=== PATIENT | male | born 1935 | race Caucasian/White ===

== ENCOUNTER 2017-11-13 11:17 | Emergency (ER) | payer MEDICARE, MEDICAID ==
[~2017-11-13] VITALS: Ht 182.9 cm; Wt 108.9 kg
[~2017-11-13 11:17] MED LIST: CEFD300C3; CLON0.5T23 PO; DIPH25CA49; DOCU-270; ESCI10TA PO; FEBU80TA PO; FESO8TAB PO; LACT10SO7 PO; LORA10CA PO; MERO500V IV; NEBI10TA2 PO; NIFE60TA83 PO; PRAV20TA PO; SITA1TAB6 PO; TAMS-12 PO; TELM1TAB2 PO; TRIA1CAP2 PO; [UNRECOGNIZED DRUG - CODE] PO; [UNRECOGNIZED DRUG - OTHER]
--- NOTE | 2017-11-13 11:50 | NUR ---
PRESENTS TO ER C/O MID STERNAL CHEST PAIN SINCE YESTERDAY. ALSO C/O HEMATURIA X 2 DAYS. A/OX 4. BREATHING EVEN AND UNLABORED. NO SOB, NAD, VITALS STABLE. SAFETY AND COMFORT MEASURES IN PLACE. AWAITING MD ORDER
--- NOTE | 2017-11-13 12:15 | NUR ---
NEW IV STARTED ON LAC, 20G. BLOOD DRAWN AND SENT TO LAB.
--- NOTE | 2017-11-13 12:31 | NUR ---
URINE OBTAINED AND SENT TO LAB.
[2017-11-13 12:34] LABS: BASOPHILS # (AUTO) 0.1 /CMM (0.0-0.2); EOSINOPHILS % (AUTO) 1.5 % (0.0-6.0); HEMATOCRIT 41 % (39-51); HEMOGLOBIN 13.5 g/dL (13.5-17.5); LYMPHOCYTES # (AUTO) 1.9 /CMM (0.8-4.8); LYMPHOCYTES % (AUTO) 22.7 % (20.0-44.0); MEAN CORPUSCULAR HGB CONC 33 g/dl (31.0-36.0); MEAN CORPUSCULAR VOLUME 86 fL (80-96); MONOCYTES # (AUTO) 0.8 /CMM (0.1-1.30); MONOCYTES % (AUTO) 8.9 % (2.0-12.0); NEUTROPHILS # (AUTO) 5.6 /CMM (1.8-8.9); NEUTROPHILS % (AUTO) 65.9 % (43.0-81.0); PLATELET COUNT (AUTO) 245 /CMM (150-450); RDW COEFFICIENT OF VARIATION 13.6 (11.5-15.0); WHITE BLOOD COUNT (AUTO) 8.5 K/uL (4.3-11.0)
[2017-11-13 12:37] LABS: APPEARANCE,URINE Cloudy (CLEAR); BILIRUBIN,URINE Negative (NEGATIVE); BLOOD, URINE Large Ery/uL (NEGATIVE); COLOR,URINE Amber (YELLOW); KETONES,URINE Negative (NEGATIVE); LEUKOCYTE ESTERASE ,URINE Large (NEGATIVE); NITRITE, URINE Negative (NEGATIVE); PH,URINE 6.5 (5.0-8.0); PROTEIN,URINE 100 mg/dl (NEGATIVE); UGLUCOSE 100 MG/DL mg/dL (NEGATIVE); UROBILINOGEN,URINE 0.2 EU/dL (0.2)
[2017-11-13 12:48] LABS: CALCIUM, SERUM 9.2 mg/dL (8.5-10.1); CARBON DIOXIDE 26 mmol/L (21-32); CHLORIDE 104 mmol/L (98-107); CREATININE 2.5 mg/dL (0.6-1.3); GLUCOSE 171 mg/dL (74-106); POTASSIUM 3.8 mmol/L (3.5-5.1); SODIUM SERUM 139 mmol/L (136-145); UREA NITROGEN, BLOOD 34 mg/dL (7-18)
--- NOTE | 2017-11-13 12:50 | NUR ---
PLATING TANK OPERATOR AT BEDSIDE.
[2017-11-13 12:52] LABS: INR 0.93 (0.85-1.15)
[2017-11-13 12:53] LABS: ALANINE AMINOTRANSFERASE 21 U/L (12-78); ALBUMIN 3.5 g/dL (3.4-5.0); ALKALINE PHOSPHATASE 78 U/L (46-116); ASPARTATE AMINOTRANSFERASE 23 U/L (15-37); BILIRUBIN,TOTAL 0.5 mg/dL (0.2-1.0); TOTAL PROTEIN, SERUM 8.5 g/dL (6.4-8.2)
[2017-11-13 12:56] LABS: TROPONIN I < 0.017 ng/mL (0.00-0.056)
[2017-11-13 12:59] LABS: BACTERIA,URINE Many /HPF (None Seen); RBC,URINE TOO NUMEROUS TO COUN /HPF (0-2); SQUAMOUS EPITHELIAL CELL,UR Few /HPF (None Seen); WBC,URINE TOO NUMEROUS TO COUN /HPF (0-3)
--- NOTE | 2017-11-13 15:00 | NUR ---
IV removed. Catheter intact and site benign. Pressure and 4x4 applied to site. No bleeding noted. Patient discharged to home in stable condition. Written and verbal after care instructions given. Patient verbalizes understanding of instruction.
[2017-11-13 15:02] VITALS: BP 172/89
== END 2017-11-13 15:00 | disposition home or self-care (01) ==
LOC: ER 11:20
DX: R07.89 Other chest pain (principal); N12 Tubulo-interstitial nephritis, not specified as acute or chronic; E11.22 Type 2 diabetes mellitus with diabetic chronic kidney disease; I12.9 Hypertensive chronic kidney disease with stage 1 through stage 4 chronic kidney disease, or unspecified chronic kidney disease; N18.9 Chronic kidney disease, unspecified
CPT/HCPCS: 36415; 71045-TC; 80048-TC; 80076-TC; 81000-TC; 84484-TC; 85025-TC; 85730-TC; 87086-TC; A4606; Z7610

== ENCOUNTER 2019-03-17 15:19 | Inpatient (IN) | payer MEDICARE, MEDICAID ==
[~2019-03-17] VITALS: Ht 182.9 cm; Wt 70.3 kg
[2019-03-17] MEDS ORDERED: IV NS 0.9% 1,000 ML BAG IV ONE (16:00)
[2019-03-17] MEDS ORDERED: ONDANSETRON HCL/PF 4 MG/2 ML VIAL IVP ONE (16:00)
[2019-03-17 16:06] LABS: BASOPHILS % (AUTO) 0.4 % (0.0-2.0); EOSINOPHILS % (AUTO) 0.1 % (0.0-6.0); HEMATOCRIT 35 % (39-51); HEMOGLOBIN 11.5 g/dL (13.5-17.5); LYMPHOCYTES # (AUTO) 1.1 /CMM (0.8-4.8); LYMPHOCYTES % (AUTO) 10.3 % (20.0-44.0); MEAN CORPUSCULAR HGB CONC 33 g/dl (31.0-36.0); MEAN CORPUSCULAR VOLUME 88 fL (80-96); MONOCYTES # (AUTO) 0.9 /CMM (0.1-1.30); MONOCYTES % (AUTO) 8.4 % (2.0-12.0); NEUTROPHILS # (AUTO) 8.5 /CMM (1.8-8.9); NEUTROPHILS % (AUTO) 80.8 % (43.0-81.0); PLATELET COUNT (AUTO) 349 /CMM (150-450); RED BLOOD CELL COUNT(AUTO) 3.94 MIL/uL (4.5-6.0); WHITE BLOOD COUNT (AUTO) 10.5 K/uL (4.3-11.0)
[2019-03-17] MEDS ORDERED: ONDANSETRON HCL/PF 4 MG/2 ML VIAL ONE (16:10)
[2019-03-17 16:20] LABS: ALANINE AMINOTRANSFERASE 15 U/L (12-78); ALBUMIN 3.1 g/dL (3.4-5.0); ALKALINE PHOSPHATASE 92 U/L (46-116); ASPARTATE AMINOTRANSFERASE 9 U/L (15-37); BILIRUBIN,DIRECT 0.1 mg/dL (0.0-0.2); BILIRUBIN,TOTAL 0.3 mg/dL (0.2-1.0); CARBON DIOXIDE 11 mmol/L (21-32); CHLORIDE 103 mmol/L (98-107); GLUCOSE 149 mg/dL (74-106); LIPASE 1057 U/L (73-393); POTASSIUM 6.1 mmol/L (3.5-5.1); SODIUM SERUM 137 mmol/L (136-145)
[2019-03-17 16:22] LABS: CREATININE 14.3 mg/dL (0.6-1.3); UREA NITROGEN, BLOOD 215 mg/dL (7-18)
[2019-03-17] MEDS ORDERED: FUROSEMIDE 40 MG/4 ML VIAL IV ONE (16:30)
[2019-03-17] MEDS ORDERED: SODIUM POLYSTYRENE SULFONATE 15 G/60 ML BOTTLE PO ONE (16:30)
[2019-03-17] MEDS ORDERED: SODIUM POLYSTYRENE SULFONATE 15 G/60 ML BOTTLE ONE (16:36)
[2019-03-17] MEDS ORDERED: FUROSEMIDE 40 MG/4 ML VIAL ONE (16:36)
[2019-03-17 17:16] LABS: APPEARANCE,URINE Turbid (CLEAR); BILIRUBIN,URINE Negative (NEGATIVE); BLOOD, URINE Moderate Ery/uL (NEGATIVE); COLOR,URINE Yellow (YELLOW); KETONES,URINE Negative (NEGATIVE); LEUKOCYTE ESTERASE ,URINE Large (NEGATIVE); NITRITE, URINE Negative (NEGATIVE); PROTEIN,URINE 100 mg/dl (NEGATIVE); UGLUCOSE Negative (NEGATIVE); UROBILINOGEN,URINE 0.2 EU/dL (0.2)
[2019-03-17 17:30] LABS: BACTERIA,URINE Moderate /HPF (None Seen); SQUAMOUS EPITHELIAL CELL,UR Few /HPF (None Seen); WBC,URINE 81-100 /HPF (0-3)
--- NOTE | 2019-03-17 17:44 | NUR ---
pt brought in to emergency room for abdominal discomfort labs done levy insterted taken to ct scan levy output 250ml clody urine.
[2019-03-17] MEDS ORDERED: CEFTRIAXONE 1 G in IV D5W 50 ML IV SCH (18:00)
[2019-03-17] MEDS ORDERED: MAG HYDROX/AL HYDROX/SIMETH 30 ML UDC PO PRN (18:00)
[2019-03-17] MEDS ORDERED: HYDROCODONE/APAP 5/325MG 1 EACH TABLET PO PRN (18:00)
[2019-03-17] MEDS ORDERED: MAGNESIUM HYDROXIDE 30 ML UDC PO PRN (18:00)
[2019-03-17] MEDS ORDERED: TEMAZEPAM 15 MG CAPSULE PO PRN (18:00)
[2019-03-17] MEDS ORDERED: ACETAMINOPHEN 325 MG TABLET PO PRN (18:00)
[2019-03-17] MEDS ORDERED: MORPHINE SULFATE INJ 2 MG/ML DISP.SYRIN IV PRN (18:00)
[2019-03-17] MEDS ORDERED: CEFTRIAXONE 1GM BAG (ER ONLY) 50 ML IV ONE (18:01)
--- NOTE | 2019-03-17 18:23 | NUR ---
TELE BED 308-1 GIVEN
[2019-03-17] MEDS ORDERED: DEXTROSE 50%-WATER 50 ML DISP.SYRIN IV PRN (18:30)
--- NOTE | 2019-03-17 18:58 | NUR ---
report given to Alexander marie pt admitted and taken up
--- NOTE | 2019-03-17 19:00 | NUR ---
MS INSURANCE AND FINANCIAL SERVICES AGENT NOTE RECEIVED PATIENT BY KACI FROM ER AT 1855. PATIENT VITAL SIGNS T: 98.1, BP: 145/79, SPO2 97 ON ROOM AIR, HR 91. PATIENT IN NO ACUTE DISTRESS. NO SOB NOTED. PATIENT BREATHING IS EVEN AND UNLABORED. PATIENT MASON CATHETER IS HANGING TO GRAVITY. PATIENT KEPT COMFORTABLE WITH GRAND DAUGHTER AT THE BEDSIDE. PATIENT IS ALERT AND ORIENTED X4. PATIENT BED IS LOCKED AND IN LOWEST POSITION. CALL LIGHT WITHIN REACH. MD AWARE OF ADMISSION. WILL ENDORSE ADMISSION CARE TO CONTRACT TECHNICIAN FOR CONTINUITY OF CARE. Addendum: 03/17/19 at 1925 by MIKE CHENEY RN ON CARDIAC MONITORING SINUS RHYTHM WITH FIRST DEGREE AV BLOCK. ENDORSED TO CONTRACT TECHNICIAN, TELE MONITORING. PATIENT IN NO ACUTE DISTRESS.
[2019-03-17 20:03] VITALS: BP 155/89
[2019-03-17] MEDS: IV NS 0.9% 1,000 ML IV PRN (20:22)
[2019-03-17] MEDS: METOPROLOL TARTRATE 50 MG TABLET PO SCH (20:23)
[2019-03-17 20:30] VITALS: BP 155/89
[2019-03-17] MEDS: BLOOD SUGAR DIAGNOSTIC 1 EACH STRIP IN SCH (20:38)
--- NOTE | 2019-03-17 20:47 | NUR ---
RECIEVED PATIENT ALERT AND ORIENTATED TO PLACE PERSON TIMES. SPEECH CLEAR ANSWERS QUESTIONS WITH THOUGHT. GRAND DAUGHTER AT THE BEDSIDE. mAIN LANGUAGE PRYDEINIG. PATIENT STATES HIS LEGS ARE WEAK. NOTED MASON CATH URINE CLOUDY YELLOW, INSERTED IN THE ER
[2019-03-18] VITALS (7 sets, daily range): BP systolic 130–152; BP diastolic 71–89
--- NOTE | 2019-03-18 04:59 | NUR ---
ENDING NOTES: ADMITTED AT THE BEGINNING OF THE SHIFT. GRAND DAUGHTER WAS AT HIS SIDE TO ANSWER ADMITTING QUESTION. D/T HE SPEAKS BRITISH HIS MAIN LANGUAGE, BUT WITH SOME UNDERSTANDING OF THE [place] LANGUAGE. HE IS COOPERATIVE AND PLEASENT, FOLLOW SIMPLE DIRECTIONS. SKIN INTACCT. NOTED HIS LOWER LEGS ARE WITH BROWN AREAS AND HIS FEET ARE PURPLE/PINK COOL AND WITH FAINT PEDAL PULES, AREAS MARKED. dvt STOCKING ON ORDERED. iV INFUSED THRU THE NIGHT SITE W/O REDNESS OR EDEMA. HE IS FORGETFUL, BED ALARM ON THRU THE NIGHT. URINE MURKY AND YELLOW, PATIENT IS ON ROCEPEN Q24 HOURS. URINE CULTURE PENDING.
[2019-03-18] MEDS: IV NS 0.9% 1,000 ML IV PRN ×2 (05:22→15:02)
[2019-03-18] MEDS: BLOOD SUGAR DIAGNOSTIC 1 EACH STRIP IN SCH ×4 (05:52→21:46)
[2019-03-18 07:13] LABS: BASOPHILS % (AUTO) 0.3 % (0.0-2.0); EOSINOPHILS % (AUTO) 0.2 % (0.0-6.0); HEMATOCRIT 34 % (39-51); LYMPHOCYTES % (AUTO) 8.6 % (20.0-44.0); MEAN CORPUSCULAR HGB CONC 33 g/dl (31.0-36.0); MEAN CORPUSCULAR VOLUME 88 fL (80-96); MONOCYTES % (AUTO) 8.9 % (2.0-12.0); NEUTROPHILS # (AUTO) 9.4 /CMM (1.8-8.9); PLATELET COUNT (AUTO) 320 /CMM (150-450); RED BLOOD CELL COUNT(AUTO) 3.84 MIL/uL (4.5-6.0); WHITE BLOOD COUNT (AUTO) 11.5 K/uL (4.3-11.0)
[2019-03-18 07:38] LABS: ALANINE AMINOTRANSFERASE 9 U/L (12-78); ALBUMIN 2.7 g/dL (3.4-5.0); ALKALINE PHOSPHATASE 86 U/L (46-116); ASPARTATE AMINOTRANSFERASE 12 U/L (15-37); BILIRUBIN,TOTAL 0.4 mg/dL (0.2-1.0); CALCIUM, SERUM 9.5 mg/dL (8.5-10.1); CARBON DIOXIDE 11 mmol/L (21-32); CHLORIDE 102 mmol/L (98-107); GLUCOSE 117 mg/dL (74-106); MAGNESIUM 2.4 mg/dL (1.8-2.4); POTASSIUM 4.7 mmol/L (3.5-5.1); SODIUM SERUM 139 mmol/L (136-145); TOTAL PROTEIN, SERUM 8.2 g/dL (6.4-8.2)
[2019-03-18 07:40] LABS: CHOLESTEROL 113 mg/dL (<200); CREATINE KINASE, TOTAL 62 U/L (39-308); HDL CHOLESTEROL 32 mg/dL (40-60); LDL 64 mg/dL (0-99); TRIGLYCERIDES 119 mg/dL (30-150)
[2019-03-18 07:59] LABS: PHOSPHORUS 12.6 mg/dL (2.5-4.9); UREA NITROGEN, BLOOD 185 mg/dL (7-18)
--- NOTE | 2019-03-18 08:00 | NUR ---
RN NOTES RECEIVED PATIENT IN THE BED A/O X2/3 FINNISH SPEAKER MALE. PATIENT TELE SR 71, NO ACUTE RESPIRATORY DISTRESS, V/S STABLE. PATIENT WAS COMPLAINING OF BILATERAL LOWER LEGS PAIN 3/10 BUT REFUSED PAIN MEDICATION. ADMINISTERED SCHEDULED MEDICATION . DVT PUMP ON, INFUSING NS AT 100 ML/HR ON RIGHT FA INTACT. PATIENT TURN AND REPOSTION SELF IN THE BED, CALL LIGHT WITHIN TO REACH, SAFETY PRECAUTION MAINTAINED ALL THE TIME.
[2019-03-18] MEDS: TAMSULOSIN 0.4 MG CAP.SR.24H PO SCH (09:13)
[2019-03-18] MEDS: NIFEdipine XL 60 MG TAB PO SCH (09:13)
[2019-03-18] MEDS: ESCITALOPRAM OXALATE (10 MG) 10 MG TABLET PO SCH (09:13)
[2019-03-18] MEDS: METOPROLOL TARTRATE 50 MG TABLET PO SCH ×2 (09:13→21:46)
[2019-03-18] MEDS: ATORVASTATIN 10 MG TABLET PO SCH (09:14)
--- NOTE | 2019-03-18 10:00 | NUR ---
RN NOTES SEEN PATIENT BY HOSPITALIST ANNA COLLADO AND TRAUMA NURSE Dr MORALES. ALSO MYSELF TRANSLATED IN COMORAN AND EXPLAINED PATIENT FOR NECESSITATE OF HEMODIALYSIS, PATIENT STATE "I AM NOT REDY FOR HEMODIALYSIS AT THIS TIME". CONTINUED MONITORING.
--- NOTE | 2019-03-18 12:00 | NUR ---
RN NOTES BS-187 MG/DL PATIENT EAT LUNCH, ADMINISTERED SCHEDULED MEDICATION. CALL LIGHT WITHIN TO REACH, CONTINUED MONITORING.
[2019-03-18] MEDS: SEVELAMER CARBONATE 800 MG TABLET PO SCH ×2 (14:57→17:40)
[2019-03-18] MEDS: INSULIN REGULAR, HUMAN 100 UNIT/ML 3 ML VIAL SQ PRN ×2 (14:59→21:50)
[2019-03-18] MEDS: ONDANSETRON HCL/PF 4 MG/2 ML VIAL IVP PRN (15:08)
--- NOTE | 2019-03-18 15:08 | NUR ---
RN NOTES ADMINISTERED ZOFRAN 4 MG/ML IV PUSH FOR NAUSEA AND VOMITING.
--- NOTE | 2019-03-18 16:00 | NUR ---
RN NOTES MEDICATION WERE ADMINISTERED FOR NAUSEA/VOMITING EFFECTIVE, PATIENT STABLE, NPO AT THIS TIME BECAUSE OF US ABDOMEN.
--- NOTE | 2019-03-18 17:00 | NUR ---
RN NOTES BS-135 MG/DL NO COVERAGE GIVEN, ADMINISTERED SCHEDULED MEDICATION, V/S STABLE, NEEDS ATTENDED AND ANTICIPATED, FAMILY NEXT TO THE BED, CONTINUED MONITORING.
[2019-03-18] MEDS: CEFTRIAXONE 1 G in IV D5W 50 ML IV SCH (17:40)
--- NOTE | 2019-03-18 18:30 | NUR ---
RN NOTES PATIENT STABLE, REFUSED PAIN, DVT PUMP ON, PATIENT TURN AND REPOSTION SELF BY SELF. ENDORSED ONCOMING NURSE FOLLOW PLAN OF CARE.
--- NOTE | 2019-03-18 19:20 | NUR ---
MS/RN OPENING NOTES PT RECEIVED AWAKE, RESTING COMFORTABLY IN BED. A/OX2-3. ON ROOM AIR, BREATHING EVEN AND UNLABORED. DENIES SOB AND PAIN AT THIS TIME. IN NO ACUTE RESPIRATORY DISTRESS. HOB ELEVATED SEMI FOWLERS. IV TO RFA INFILTRATED. WILL INSERT NEW IV. MASON IN PLACE AND DRAINING TO GRAVITY. NO NEEDS EXPRESSED AT THIS TIME. BED IN LOW/LOCKED POSITION WITH CALL LIGHT IN REACH. SIDE RAILS UPX3 AND BED ALARM ON FOR SAFETY. WILL CONTINUE TO MONITOR
--- NOTE | 2019-03-18 20:31 | NUR ---
MS/RN NOTES NEW IV INSERTED TO LEFT HAND #22, GOOD BLOOD RETURN AND FLUSHES WELL. RESUMED IVF
--- NOTE | 2019-03-19 02:00 | NUR ---
MS/RN NOTES PT ROUNDING PERFORMED. PT IS SLEEPING, BREATHING EVEN AND UNLABORED. NO S/S OF ACUTE DISTRESS. WILL CONTINUE TO MONITOR
[2019-03-19] MEDS: IV NS 0.9% 1,000 ML IV PRN (04:29)
[2019-03-19] MEDS: BLOOD SUGAR DIAGNOSTIC 1 EACH STRIP IN SCH ×4 (06:57→21:18)
[2019-03-19 06:58] LABS: BASOPHILS # (AUTO) 0.1 /CMM (0.0-0.2); BASOPHILS % (AUTO) 0.4 % (0.0-2.0); EOSINOPHILS % (AUTO) 0.4 % (0.0-6.0); HEMATOCRIT 31 % (39-51); HEMOGLOBIN 10.3 g/dL (13.5-17.5); LYMPHOCYTES % (AUTO) 8.5 % (20.0-44.0); MEAN CORPUSCULAR HGB CONC 33 g/dl (31.0-36.0); MEAN CORPUSCULAR VOLUME 87 fL (80-96); MONOCYTES # (AUTO) 0.9 /CMM (0.1-1.30); MONOCYTES % (AUTO) 7.6 % (2.0-12.0); NEUTROPHILS # (AUTO) 9.8 /CMM (1.8-8.9); NEUTROPHILS % (AUTO) 83.1 % (43.0-81.0); PLATELET COUNT (AUTO) 293 /CMM (150-450); RED BLOOD CELL COUNT(AUTO) 3.54 MIL/uL (4.5-6.0); WHITE BLOOD COUNT (AUTO) 11.8 K/uL (4.3-11.0)
[2019-03-19 07:00] LABS: CALCIUM, SERUM 8.7 mg/dL (8.5-10.1); CHLORIDE 106 mmol/L (98-107); GLUCOSE 133 mg/dL (74-106); LIPASE 1081 U/L (73-393); POTASSIUM 3.7 mmol/L (3.5-5.1); SODIUM SERUM 141 mmol/L (136-145)
[2019-03-19] MEDS: INSULIN REGULAR, HUMAN 100 UNIT/ML 3 ML VIAL SQ PRN ×2 (07:00→21:19)
--- NOTE | 2019-03-19 07:01 | NUR ---
MS/RN NOTES BGL 135. NO INSULIN ADMINISTERED PT STATES HE HAS POOR APPETITE.
[2019-03-19 07:05] LABS: UREA NITROGEN, BLOOD 171 mg/dL (7-18)
--- NOTE | 2019-03-19 07:16 | NUR ---
MS/RN CLOSING NOTES PT AWAKE. RESTING COMFORTABLY IN BED. A/OX2-3. ON ROOM AIR, BREATHING EVEN AND UNLABORED. DENIES SOB AND PAIN AT THIS TIME. SEMI FOWLERS POSITION. IV TO LEFT HAND PATENT AND INTACT RUNNING IVF ORDERED. MASON IN PLACE AND DRAINING TO GRAVITY. NO SIGNIFICANT CHANGES OVERNIGHT. ALL NEEDS MET AND ANTICIPATED. BED IN LOW/LOCKED POSITION WITH CALL LIGHT IN REACH. SIDE RAILS UPX3 AND BED ALARM ON FOR SAFETY. ENDORSED TO DAY SHIFT RN ROSIE.
[2019-03-19 07:33] LABS: CARBON DIOXIDE 9 mmol/L (21-32)
--- NOTE | 2019-03-19 07:45 | NUR ---
RN NOTES GET CALL FROM LAB FOR CRITICAL CO2 -9.0 LEVEL, NOTIFIED ANNA SIMON. PATIENT SLEEPING AT THIS TIME. CONTINUED MONITORING.
[2019-03-19 08:00] VITALS: BP_SYST 100; BP_SYST 102; BP_DIAS 54; BP_DIAS 62
--- NOTE | 2019-03-19 08:00 | NUR ---
rn notes patient in the bed awake, no acute respiratory distress, v/s stable, was complaining of nausea, also administered scheduled medication. Infusing ns at 100 ml/hr on left hand intact. Seen hospitalist ALFRED CASTILLO patient agrees to hemodialysis at this time. call light within to reach, safety precaution maintained all the time.
[2019-03-19] MEDS ORDERED: IV NS 0.9% 1,000 ML IV PRN (08:31)
[2019-03-19] MEDS: NIFEdipine XL 60 MG TAB PO SCH ×2 (09:00→09:33)
[2019-03-19] MEDS: ESCITALOPRAM OXALATE (10 MG) 10 MG TABLET PO SCH (09:24)
[2019-03-19] MEDS: TAMSULOSIN 0.4 MG CAP.SR.24H PO SCH (09:24)
[2019-03-19] MEDS: ATORVASTATIN 10 MG TABLET PO SCH (09:32)
[2019-03-19] MEDS: SEVELAMER CARBONATE 800 MG TABLET PO SCH ×3 (09:33→18:30)
[2019-03-19] MEDS: METOPROLOL TARTRATE 50 MG TABLET PO SCH ×2 (09:33→21:18)
[2019-03-19] MEDS: ONDANSETRON HCL/PF 4 MG/2 ML VIAL IVP PRN ×2 (09:43→21:19)
--- NOTE | 2019-03-19 09:43 | NUR ---
rn notes administered zofran 4 mg/ml iv push for nausea and vomiting.
--- NOTE | 2019-03-19 12:27 | NUR ---
rn notes bs-154 mg/dl, patient refused lunch, medication were administered for nausea/vomiting effective, patient resting in the bed. call light within to reach, continued monitoring.
[2019-03-19 16:00] VITALS: BP 144/60
[2019-03-19 16:07] LABS: *SPE A/G RATIO 0.7 (0.7-1.7); *SPE ALBUMIN 2.8 g/dL (2.9-4.4); *SPE ALPHA-1-GLOBULIN 0.3 g/dL (0.0-0.4); *SPE ALPHA-2-GLOBULIN 0.9 g/dL (0.4-1.0); *SPE GLOBULIN, TOTAL 4.3 g/dL (2.2-3.9); *SPE M-SPIKE Not Observed g/dL (Not Observed)
--- NOTE | 2019-03-19 17:00 | NUR ---
RN NOTES BS-119 MG/DL , ADMINISTERED SCHEDULED MEDICATION, NO ACUTE DISTRESS, PATIENT GOING TO HAVE A PERMCATH TOMORROW [address] GEE.
[2019-03-19] MEDS: CEFTRIAXONE 1 G in IV D5W 50 ML IV SCH (18:29)
[2019-03-19] MEDS: SODIUM BICARBONATE 650 MG TABLET PO SCH ×2 (18:30→23:35)
--- NOTE | 2019-03-19 18:30 | NUR ---
RN NOTES PATIENT IN THE BED STABLE, INFUSING ROCEPHIN ON LEFT HAND 100 ML/HR INTACT, CALL LIGHT WITHIN TO REACH, SAFETY PRECAUTION MAINTAINED ALL THE TIME. ENDORSED ONCOMING NURSE FOLLOW PLAN OF CARE.
--- NOTE | 2019-03-19 19:30 | NUR ---
MS/RN OPENING NOTES PT RECEIVED AWAKE, LAYING COMFORTABLY IN BED. AAOX2-3. ON ROOM AIR, BREATHING EVEN AND UNLABORED. DENIES SOB AND PAIN AT THIS TIME. IV TO LEFT HAND PATENT AND INTACT. SEMI FOWLERS. MASON IN PLACE AND DRAINING TO GRAVITY. BED IN LOW/LOCKED POSITION WITH CALL LIGHT IN REACH. SIDE RAILS UPX3 AND BED ALARM ON FOR SAFETY. PT VERBALIZED UNDERSTANDING FOR SCHEDULED PERMACATH PLACEMENT FOR DIALYSIS TOMORROW AT 1100. WILL HAVE PT SIGN CONSENT FORMS. NO NEEDS EXPRESSED AT THIS TIME. WILL CONTINUE TO MONITOR
[2019-03-19 20:00] VITALS: BP 144/75
--- NOTE | 2019-03-19 21:20 | NUR ---
MS/RN NOTES CONSENTS REVIEWED WITH PT (PROCEDURE, ANESTHESIA AND BLOOD). PT WANTS SOME TIME TO READ AND REVIEW CONSENTS ON HIS OWN. WILL COME BACK AND ANSWER QUESTIONS PT MAY HAVE AND OBTAIN CONSENT.
--- NOTE | 2019-03-19 23:35 | NUR ---
MS/RN NOTES PT ASLEEP, RESPONSIVE TO NAME. ASKED IF HE HAD ANY QUESTIONS AFTER READING CONSENT FORMS. PT STATES HE DOES NOT WANT TO SIGN CONSENTS AT THIS TIME. UPON FURTHER EXPLANATION OF PROCEDURE WITH RISKS/BENEFITS, ASKED IF HE UNDERSTOOD WHY HE WAS UNDERGOING PERMACATH PLACEMENT. RESPONDS WITH "YES, BUT I DONT WANT TO SIGN IT RIGHT NOW. IN THE MORNING". PT BECOMING AGITATED. CRN MADE AWARE.
[2019-03-20] VITALS: BP 108/60
[2019-03-20] MEDS: SODIUM BICARBONATE 650 MG TABLET PO SCH ×7 (03:00→22:52)
[2019-03-20] MEDS: BLOOD SUGAR DIAGNOSTIC 1 EACH STRIP IN SCH ×4 (06:41→22:51)
[2019-03-20] MEDS: INSULIN REGULAR, HUMAN 100 UNIT/ML 3 ML VIAL SQ PRN ×2 (06:45→17:10)
[2019-03-20 07:02] LABS: CALCIUM, SERUM 9.2 mg/dL (8.5-10.1); CARBON DIOXIDE 11 mmol/L (21-32); CHLORIDE 110 mmol/L (98-107); GLUCOSE 133 mg/dL (74-106); POTASSIUM 3.8 mmol/L (3.5-5.1); SODIUM SERUM 144 mmol/L (136-145)
[2019-03-20 08:00] VITALS: BP 147/76
[2019-03-20] MEDS: SEVELAMER CARBONATE 800 MG TABLET PO SCH ×3 (08:00→17:15)
--- NOTE | 2019-03-20 08:00 | NUR ---
RN NOTES RECEIVED PATIENT IN THE BED A/O X3. PATIENT NPO SCHEDULED PERMCATH PROCEDURE TODAY 1000 AM, HELD AM SCHEDULED MEDICATION. PATIENT HAD NO ACUTE RESPIRATORY DISTRESS. IV ACCESS ON LEFT HAND INTACT, F/C DRAINING LIGHT YELLOW OUTPUT, V/S STABLE, REFUSED PAIN AT THIS TIME, DVT PUMP ON, CALL LIGHT WITHIN TO REACH, CONTINUED MONITORING.
[2019-03-20] MEDS: TAMSULOSIN 0.4 MG CAP.SR.24H PO SCH (08:20)
[2019-03-20] MEDS: ATORVASTATIN 10 MG TABLET PO SCH (08:20)
[2019-03-20] MEDS: NIFEdipine XL 60 MG TAB PO SCH (09:00)
[2019-03-20] MEDS: ESCITALOPRAM OXALATE (10 MG) 10 MG TABLET PO SCH (09:00)
[2019-03-20] MEDS: METOPROLOL TARTRATE 50 MG TABLET PO SCH ×2 (09:00→21:50)
[2019-03-20 09:15] LABS: UREA NITROGEN, BLOOD 173 mg/dL (7-18)
[2019-03-20 09:16] LABS: CREATININE 11.2 mg/dL (0.6-1.3)
[2019-03-20 09:46] VITALS: BP 147/76
[2019-03-20] MEDS ORDERED: LIDOCAINE HCL/PF 1% 30 ML SDV ONE (09:46)
[2019-03-20] MEDS ORDERED: HEPARIN SODIUM, PORCINE 1,000 UNIT/ML VIAL ONE (09:46)
[2019-03-20] MEDS ORDERED: ANESTHESIA TRAY IN PYXIS 1 EA TRAY MC ONE (09:46)
[2019-03-20] MEDS ORDERED: FAMOTIDINE/PF INJ 20 MG/2 ML VIAL IV ONE (10:00)
--- NOTE | 2019-03-20 10:00 | NUR ---
rn notes patient picker and packer at this time for PermCath placement, v/s stable.
[2019-03-20 12:08] VITALS: BP 119/57
--- NOTE | 2019-03-20 12:08 | NUR ---
RN NOTES RECEIVED PATIENT BACK FROM PERMCATH PROCEDURE ON LEFT UPPER CHEST DRESSING INTACT, V/S TAKEN BP-119/57, P-61, R-18, T-97.8, O2-ROOM AIR 97, PATENT AWAKE, REFUSED PAIN, BS-147 MG/DL. CALL LIGHT WITHIN TO REACH. CONTINUED MONITORING.
--- NOTE | 2019-03-20 12:22 | NUR ---
RN NOTES POST UP MD ORDERS OK TO USE CATHETER FOR DIALYSIS TODAY, RESUME PREOP ORDERS.
--- NOTE | 2019-03-20 12:40 | NUR ---
RN NOTES PATIENT REFUSED EAT LUNCH, ALSO REFUSED RENAGEL SCHEDULED MEDICATION. UNABLE TO GIVE INSULIN COVERAGE BECAUSE REFUSED TO EAT, CONTINUED MONITORING
[2019-03-20 14:07] LABS: PTH, INTACT 217 pg/mL (15-65)
[2019-03-20 15:54] VITALS: BP 120/56
[2019-03-20] MEDS: CEFTRIAXONE 1 G in IV D5W 50 ML IV SCH (17:07)
--- NOTE | 2019-03-20 18:30 | NUR ---
rn notes bs-159 mg/dl coverage given also administered scheduled medication, patient tolerated dinner 50 %. per dialysis nurse patient will have a dialysis today late time. v/s WNL, needs attended and anticipated, assist patient turn and reposition q 2 hr. call light within to reach. endorsed oncoming nurse follow plan of care.
--- NOTE | 2019-03-20 19:05 | NUR ---
MS RN NOTES RECEIVED PT IN THE BED AWAKE AND ABLE TO MAKE NEEDS KNOWN WITH FAMILY AT BEDSIDE. PT A/O X3 UZBEK SPEAKING. RESPIRATIONS EVEN AND UNLABORED WITH NO S/S OF ACUTE DISTRESS OR SOB NOTED. PT WITH IV ACCESS ON LEFT HAND, PATENT AND INTACT. NO COMPLAINTS OF PAIN AT THIS TIME. PT TO HAVE DIALYSIS. SAFETY MEASURES IN PLACE WITH BED IN LOWEST LOCKED POSITION WITH SIDE RAILS UP X2. CALL LIGHT WITHIN REACH. WILL CONTINUE TO MONITOR.
--- NOTE | 2019-03-20 19:20 | NUR ---
MS RN NOTES PT STARTED ON DIALYSIS.
[2019-03-20] MEDS ORDERED: MANNITOL 12.5 GM/50 ML VIAL IV ONE (19:30)
[2019-03-20 20:19] VITALS: BP 155/78
--- NOTE | 2019-03-20 21:50 | NUR ---
MS RN NOTES DIALYSIS FINISHED WITH 0.2L REMOVED.
[2019-03-21] MEDS: SODIUM BICARBONATE 650 MG TABLET PO SCH ×6 (03:22→22:43)
[2019-03-21 06:29] LABS: BASOPHILS # (AUTO) 0.1 /CMM (0.0-0.2); BASOPHILS % (AUTO) 0.4 % (0.0-2.0); EOSINOPHILS % (AUTO) 0.6 % (0.0-6.0); HEMATOCRIT 32 % (39-51); HEMOGLOBIN 10.8 g/dL (13.5-17.5); LYMPHOCYTES # (AUTO) 1.3 /CMM (0.8-4.8); MEAN CORPUSCULAR HGB CONC 34 g/dl (31.0-36.0); MEAN CORPUSCULAR VOLUME 86 fL (80-96); MONOCYTES # (AUTO) 1.3 /CMM (0.1-1.30); MONOCYTES % (AUTO) 10.4 % (2.0-12.0); NEUTROPHILS % (AUTO) 78.6 % (43.0-81.0); PLATELET COUNT (AUTO) 297 /CMM (150-450); RED BLOOD CELL COUNT(AUTO) 3.71 MIL/uL (4.5-6.0); WHITE BLOOD COUNT (AUTO) 12.8 K/uL (4.3-11.0)
[2019-03-21 06:58] LABS: ALANINE AMINOTRANSFERASE 9 U/L (12-78); ALBUMIN 2.6 g/dL (3.4-5.0); ALKALINE PHOSPHATASE 82 U/L (46-116); ASPARTATE AMINOTRANSFERASE 11 U/L (15-37); BILIRUBIN,TOTAL 0.3 mg/dL (0.2-1.0); CARBON DIOXIDE 15 mmol/L (21-32); CHLORIDE 105 mmol/L (98-107); GLUCOSE 136 mg/dL (74-106); PHOSPHORUS 7.9 mg/dL (2.5-4.9); POTASSIUM 4.4 mmol/L (3.5-5.1); SODIUM SERUM 141 mmol/L (136-145); TOTAL PROTEIN, SERUM 8.1 g/dL (6.4-8.2)
[2019-03-21] MEDS: BLOOD SUGAR DIAGNOSTIC 1 EACH STRIP IN SCH ×4 (07:00→22:00)
[2019-03-21 07:17] LABS: CREATININE 8.7 mg/dL (0.6-1.3); UREA NITROGEN, BLOOD 119 mg/dL (7-18)
[2019-03-21 07:27] LABS: CALCIUM, SERUM 8.9 mg/dL (8.5-10.1)
--- NOTE | 2019-03-21 07:37 | NUR ---
MS RN NOTES PT IN THE BED AWAKE AND ABLE TO MAKE NEEDS KNOWN WITH FAMILY AT BEDSIDE. PT A/O X2-3 DUTCH SPEAKING WITH PERIODS OF CONFUSION. RESPIRATIONS EVEN AND UNLABORED WITH NO S/S OF ACUTE DISTRESS OR SOB NOTED THROUGHOUT SHIFT. NO COMPLAINTS OF PAIN AT THIS TIME. PT TO HAVE DIALYSIS. SAFETY MEASURES IN PLACE WITH BED IN LOWEST LOCKED POSITION WITH SIDE RAILS UP X2. CALL LIGHT WITHIN REACH. WILL ENDORSE TO ONCOMING NURSE FOR ROSIE.
[2019-03-21 08:00] VITALS: BP 142/85
[2019-03-21] MEDS: SEVELAMER CARBONATE 800 MG TABLET PO SCH ×3 (08:00→17:52)
--- NOTE | 2019-03-21 08:00 | NUR ---
MS RN RECEIVED ON BED,AWAKE,ALERT,ORIENTED X 3,NOT IN ANY FOM OF DISTRESS, RESPIRATIONS EVEN AND UNLABORED,NO SOB NOTED, LUNGS ARE DIMINISH, DENIES PAIN AT THIS TIME.
--- NOTE | 2019-03-21 09:00 | NUR ---
MS RN HELD MEDS AT THIS TIME, PATIENT WILL HAVE HD TODAY.
--- NOTE | 2019-03-21 11:35 | NUR ---
MS SERA HD DONE W/ 1000ML OUTPUT, NO DISTRESS NOTED.
--- NOTE | 2019-03-21 12:00 | NUR ---
MS RN BS - 192 - 3 UNITS GIVEN,ALL NEEDS ATTENDED.
--- NOTE | 2019-03-21 14:00 | NUR ---
MS RN MASON CATHETER REMOVED,NO DISTRESS NOTED.
[2019-03-21] MEDS: INSULIN REGULAR, HUMAN 100 UNIT/ML 3 ML VIAL SQ PRN ×2 (14:02→22:06)
[2019-03-21] MEDS: TAMSULOSIN 0.4 MG CAP.SR.24H PO SCH (14:08)
[2019-03-21] MEDS: ESCITALOPRAM OXALATE (10 MG) 10 MG TABLET PO SCH (14:08)
[2019-03-21] MEDS: ATORVASTATIN 10 MG TABLET PO SCH (14:08)
[2019-03-21 16:00] VITALS: BP 131/72
[2019-03-21] MEDS: METOPROLOL TARTRATE 50 MG TABLET PO SCH ×2 (17:51→21:00)
[2019-03-21] MEDS: NIFEdipine XL 60 MG TAB PO SCH (17:51)
[2019-03-21] MEDS: CEFTRIAXONE 1 G in IV D5W 50 ML IV SCH (17:52)
--- NOTE | 2019-03-21 19:00 | NUR ---
MS RN ON BED,NO DISTRESS NOTED,ALL NEEDS ATTENDED.
--- NOTE | 2019-03-21 19:30 | NUR ---
RECIEVED ASLEEP SUPINE POSITION HEAD ELEVATED 30 DEGREES. AROUSE EASILY AND ALERT X2 WILL LOOK AT ME, BUT PULLS AWAY AND SAYING "GO AWAY" , CALL LIGHT WITHIN HIS REACH BEDALARM ON PERM CATH DRESSING CLEAN AND DRY. ALLOWING THE PATIENT TO SLEEP
[2019-03-21 20:00] VITALS: BP 114/65
[2019-03-21 21:01] VITALS: BP 114/65
[2019-03-22] MEDS: SODIUM BICARBONATE 650 MG TABLET PO SCH ×3 (02:46→09:14)
[2019-03-22] MEDS: BLOOD SUGAR DIAGNOSTIC 1 EACH STRIP IN SCH ×4 (06:48→21:07)
[2019-03-22] MEDS: INSULIN REGULAR, HUMAN 100 UNIT/ML 3 ML VIAL SQ PRN (06:54)
[2019-03-22 06:55] LABS: BASOPHILS % (AUTO) 0.4 % (0.0-2.0); EOSINOPHILS % (AUTO) 0.7 % (0.0-6.0); HEMATOCRIT 33 % (39-51); HEMOGLOBIN 10.8 g/dL (13.5-17.5); LYMPHOCYTES # (AUTO) 1.8 /CMM (0.8-4.8); LYMPHOCYTES % (AUTO) 15.3 % (20.0-44.0); MEAN CORPUSCULAR HGB CONC 33 g/dl (31.0-36.0); MEAN CORPUSCULAR VOLUME 86 fL (80-96); MONOCYTES # (AUTO) 1.7 /CMM (0.1-1.30); MONOCYTES % (AUTO) 14.6 % (2.0-12.0); PLATELET COUNT (AUTO) 254 /CMM (150-450); RED BLOOD CELL COUNT(AUTO) 3.81 MIL/uL (4.5-6.0); WHITE BLOOD COUNT (AUTO) 11.6 K/uL (4.3-11.0)
[2019-03-22 07:15] LABS: CALCIUM, SERUM 9.1 mg/dL (8.5-10.1); CARBON DIOXIDE 18 mmol/L (21-32); CHLORIDE 103 mmol/L (98-107); GLUCOSE 135 mg/dL (74-106); MAGNESIUM 2.1 mg/dL (1.8-2.4); POTASSIUM 3.1 mmol/L (3.5-5.1); SODIUM SERUM 142 mmol/L (136-145)
[2019-03-22 07:18] LABS: CREATININE 7.9 mg/dL (0.6-1.3); UREA NITROGEN, BLOOD 97 mg/dL (7-18)
[2019-03-22 07:22] LABS: PHOSPHORUS 8.1 mg/dL (2.5-4.9)
[2019-03-22 08:00] VITALS: BP 139/66
--- NOTE | 2019-03-22 08:00 | NUR ---
ms rn received on bed,awake,alert,oriented x3,not in any form of distress, respirations even and unlabored,no sob noted, lungs are diminished, abdomen soft,positive bowel sounds,denies pain at this time,all needs attended.
[2019-03-22] MEDS: ONDANSETRON HCL/PF 4 MG/2 ML VIAL IVP PRN (08:28)
--- NOTE | 2019-03-22 09:00 | NUR ---
ms marie due meds given,tolerated well, breakfast w/ poor appetite.
[2019-03-22] MEDS: ESCITALOPRAM OXALATE (10 MG) 10 MG TABLET PO SCH (09:09)
[2019-03-22] MEDS: TAMSULOSIN 0.4 MG CAP.SR.24H PO SCH (09:09)
[2019-03-22] MEDS: SEVELAMER CARBONATE 800 MG TABLET PO SCH ×3 (09:09→18:00)
[2019-03-22] MEDS: ATORVASTATIN 10 MG TABLET PO SCH (09:10)
[2019-03-22] MEDS: METOPROLOL TARTRATE 50 MG TABLET PO SCH ×2 (09:10→21:03)
[2019-03-22] MEDS: NIFEdipine XL 60 MG TAB PO SCH (09:11)
--- NOTE | 2019-03-22 11:00 | NUR ---
ms rn was seen by dr. radames levi/ orders made and carried out.
--- NOTE | 2019-03-22 12:00 | NUR ---
ms learning support assistant came to visit her, screaming to dr. crum over the phone, application security architect called to see at 3rd floor.
--- NOTE | 2019-03-22 12:30 | NUR ---
ms rn bs-168-no coverage given, patient refused lunch at this time.
[2019-03-22 16:00] VITALS: BP 119/62
--- NOTE | 2019-03-22 18:00 | NUR ---
ms rn bs -130-no coverage given- renagel held, patient refused dinner.no distress noted.
[2019-03-22] MEDS: CEFTRIAXONE 1 G in IV D5W 50 ML IV SCH (18:33)
--- NOTE | 2019-03-22 19:00 | NUR ---
RECIEVED ALERT AND OREINTATED X2' NOT AB;E TO COMPREHEND THE KENYON; LIGHT. NEAR NURSING STATION BED ALARM, ON. PERMCATH LEFT CHEST WALL INTACT COVERED WITH GAUZE
[2019-03-22 20:00] VITALS: BP 134/64
--- NOTE | 2019-03-23 05:26 | NUR ---
ENDING NORES AT THE BEDGINNING OF THE SHIFT HE WAS PLEASENT AND COOPERATIVE. HE DOES NOT LIKE TO BE AWAKENED TO DO ACCUCKECKS OR TO BE GIVEN MEDICATIONS. HE WILL KICK OR USE HIS ARM TO PUSH YOU AWAY. HE SPEAKS ITALIAN WITH SOME UNDERSTAND OF LITHU[place]IAN. PERM CATH RIGHT C/W CDI.
[2019-03-23] MEDS: BLOOD SUGAR DIAGNOSTIC 1 EACH STRIP IN SCH ×4 (06:11→21:35)
[2019-03-23 06:55] LABS: BASOPHILS # (AUTO) 0.1 /CMM (0.0-0.2); BASOPHILS % (AUTO) 0.6 % (0.0-2.0); EOSINOPHILS % (AUTO) 1.2 % (0.0-6.0); HEMATOCRIT 32 % (39-51); HEMOGLOBIN 10.9 g/dL (13.5-17.5); MEAN CORPUSCULAR HGB CONC 34 g/dl (31.0-36.0); MEAN CORPUSCULAR VOLUME 86 fL (80-96); MONOCYTES # (AUTO) 1.7 /CMM (0.1-1.30); MONOCYTES % (AUTO) 14.5 % (2.0-12.0); NEUTROPHILS # (AUTO) 7.9 /CMM (1.8-8.9); NEUTROPHILS % (AUTO) 66.7 % (43.0-81.0); PLATELET COUNT (AUTO) 243 /CMM (150-450); RED BLOOD CELL COUNT(AUTO) 3.72 MIL/uL (4.5-6.0); WHITE BLOOD COUNT (AUTO) 11.9 K/uL (4.3-11.0)
[2019-03-23 07:17] LABS: CALCIUM, SERUM 9.3 mg/dL (8.5-10.1); CARBON DIOXIDE 21 mmol/L (21-32); CHLORIDE 102 mmol/L (98-107); CREATININE 6.8 mg/dL (0.6-1.3); GLUCOSE 130 mg/dL (74-106); MAGNESIUM 2.2 mg/dL (1.8-2.4); PHOSPHORUS 6.3 mg/dL (2.5-4.9); POTASSIUM 3.6 mmol/L (3.5-5.1); SODIUM SERUM 141 mmol/L (136-145); UREA NITROGEN, BLOOD 66 mg/dL (7-18)
[2019-03-23 08:00] VITALS: BP 140/80
--- NOTE | 2019-03-23 08:00 | NUR ---
MS RN OPENING NOTES Received Patient asleep and resting in bed. VS stable with no acute distress. Breathing even and unlabored on room air with no respiratory distress. No signs and symptoms of pain at this time. Left Chest Wall Permacath intact. 20g PIV on left hand clean, dry, intact and flushing well. Safety precautions in place. Bed locked and set to lowest position with side rails x 2 up. All needs rendered at this time. Call light within reach. Will continue to monitor.
[2019-03-23] MEDS: TAMSULOSIN 0.4 MG CAP.SR.24H PO SCH (08:34)
[2019-03-23] MEDS: SEVELAMER CARBONATE 800 MG TABLET PO SCH ×3 (08:34→17:37)
[2019-03-23] MEDS: NIFEdipine XL 60 MG TAB PO SCH (08:35)
[2019-03-23] MEDS: ESCITALOPRAM OXALATE (10 MG) 10 MG TABLET PO SCH (08:35)
[2019-03-23] MEDS: ATORVASTATIN 10 MG TABLET PO SCH (08:35)
[2019-03-23] MEDS: METOPROLOL TARTRATE 50 MG TABLET PO SCH ×2 (08:35→21:00)
[2019-03-23 16:00] VITALS: BP 102/58
[2019-03-23] MEDS: CEFTRIAXONE 1 G in IV D5W 50 ML IV SCH (17:37)
--- NOTE | 2019-03-23 19:13 | NUR ---
MS RN CLOSING NOTES Patient resting in bed. A/O x 2. VS stable with no acute distress. Breathing even and unlabored on room air with no respiratory distress. No signs and symptoms of pain at this time. Left Chest Wall Permacath intact. 20g PIV on left hand clean, dry, intact and flushing well. Safety precautions in place. Bed locked and set to lowest position with side rails x 2 up. All needs rendered at this time. Call light within reach. Will endorse plan of care to oncoming shift.
[2019-03-23] MEDS: INSULIN REGULAR, HUMAN 100 UNIT/ML 3 ML VIAL SQ PRN ×2 (19:35→21:38)
--- NOTE | 2019-03-23 19:53 | NUR ---
MS/RN RECEIVE PATIENT AWAKE, ALERT, ORIENTED TO NAME, COMFORTABLE, NO DISTRESS NOTED, CALL LIGHT IN REACH, FALL PRECAUTION, WILL MONITOR.
[2019-03-23 20:00] VITALS: BP 122/62
--- NOTE | 2019-03-24 06:21 | NUR ---
MS/RN PATIENT APPEAR SLEEPING, APPEAR COMFORTABLE, NO SIGNS OF DISTRESS NOTED, HAD AN ON AND OFF SLEEP THE WHOLE SHIFT, ALL NEEDS ATTENDED AT THIS TIME, WILL CONTINUE TO MONITOR.
[2019-03-24 07:35] LABS: BASOPHILS # (AUTO) 0.1 /CMM (0.0-0.2); BASOPHILS % (AUTO) 0.7 % (0.0-2.0); EOSINOPHILS % (AUTO) 0.9 % (0.0-6.0); HEMATOCRIT 34 % (39-51); HEMOGLOBIN 11.3 g/dL (13.5-17.5); LYMPHOCYTES % (AUTO) 16.9 % (20.0-44.0); MEAN CORPUSCULAR HGB CONC 33 g/dl (31.0-36.0); MEAN CORPUSCULAR VOLUME 87 fL (80-96); MONOCYTES # (AUTO) 1.5 /CMM (0.1-1.30); MONOCYTES % (AUTO) 12.3 % (2.0-12.0); NEUTROPHILS # (AUTO) 8.2 /CMM (1.8-8.9); NEUTROPHILS % (AUTO) 69.2 % (43.0-81.0); PLATELET COUNT (AUTO) 242 /CMM (150-450); RED BLOOD CELL COUNT(AUTO) 3.94 MIL/uL (4.5-6.0); WHITE BLOOD COUNT (AUTO) 11.8 K/uL (4.3-11.0)
--- NOTE | 2019-03-24 07:50 | NUR ---
MS RN OPENING NOTES RECEIVED PT IN BED, AWAKE, A/O X1-2. TOLERATING RA, WITH NO ACUTE RESPIRATORY DISTRESS NOTED. PT DENIES ANY PAIN OR DISCOMFORT AT THIS TIME. ALSO DENIES CONCERNS OR QUESTIONS AT THIS MOMENT. PIV TO L HAND G20, FLUSHED WITH NS, INTACT AND OPERATIONAL. PT KEPT COMFORTABLE. PT'S BED IN LOWEST, LOCKED POSITION WITH SRX3. CALL LIGHT KEPT WITHIN REACH. WILL CONTINUE PLAN OF CARE.
[2019-03-24] MEDS: BLOOD SUGAR DIAGNOSTIC 1 EACH STRIP IN SCH ×4 (07:54→21:50)
[2019-03-24 08:00] VITALS: BP 104/69
[2019-03-24] MEDS: SEVELAMER CARBONATE 800 MG TABLET PO SCH ×3 (08:00→17:36)
[2019-03-24 08:19] LABS: CALCIUM, SERUM 9.4 mg/dL (8.5-10.1); CARBON DIOXIDE 21 mmol/L (21-32); CHLORIDE 101 mmol/L (98-107); GLUCOSE 131 mg/dL (74-106); POTASSIUM 3.4 mmol/L (3.5-5.1); SODIUM SERUM 142 mmol/L (136-145); UREA NITROGEN, BLOOD 78 mg/dL (7-18)
[2019-03-24 08:23] LABS: CREATININE 8.3 mg/dL (0.6-1.3)
[2019-03-24] MEDS: ESCITALOPRAM OXALATE (10 MG) 10 MG TABLET PO SCH (09:00)
[2019-03-24] MEDS: METOPROLOL TARTRATE 50 MG TABLET PO SCH ×2 (09:00→21:51)
[2019-03-24] MEDS: ATORVASTATIN 10 MG TABLET PO SCH (09:00)
[2019-03-24] MEDS: NIFEdipine XL 60 MG TAB PO SCH (09:00)
[2019-03-24] MEDS: TAMSULOSIN 0.4 MG CAP.SR.24H PO SCH (09:00)
--- NOTE | 2019-03-24 10:15 | NUR ---
MS SERA NOTES ENDORSED TO SERA/REHANA FOR ROSIE.
--- NOTE | 2019-03-24 11:02 | NUR ---
rn notes patient refused scheduled medication, patient state "Do not make med crazy with your medication". Patient watching TV , refused pain. call light within to reach, safety precaution maintained all the time.
--- NOTE | 2019-03-24 12:20 | NUR ---
RN NOTES BS-132 MG/DL NO COVERAGE GIVEN, REFUSED LUNCH, PATIENT CONFUSED. CALL LIGHT WITHIN TO REACH, SAFETY PRECAUTION MAINTAINED ALL THE TIME.
--- NOTE | 2019-03-24 14:45 | NUR ---
RN NOTES PER DIALYSIS NURSE NOAH IS NOT WORKING UNABLE TO DO HEMODIALYSIS , AND ADMINISTERED ACTIVACE FOR OPENING TUBES. WILL DO HD TOMORROW.
[2019-03-24] MEDS ORDERED: ALTEPLASE CATHFLO 2 MG/VIAL IV ONE (15:00)
[2019-03-24 16:08] VITALS: BP 116/66
--- NOTE | 2019-03-24 17:30 | NUR ---
RN NOTES BS-129 MG/DL, PATIENT TAKE SCHEDULED MEDICATION, V/S STABLE. PATIENT HAS A POOR APPETITE TOLERATED DINNER 10%, ASSIST TURN AND REPOSTION Q 2 HR, PATIENT INCONTINENT. CALL LIGHT WITHIN TO REACH, CONTINUED MONITORING.
[2019-03-24] MEDS: CEFTRIAXONE 1 G in IV D5W 50 ML IV SCH (17:35)
--- NOTE | 2019-03-24 18:30 | NUR ---
RN NOTES PATIENT RESTING IN THE BED, REFUSED DIAPER BE CHANGED, PATIENT REFUSED PAIN, CALL LIGHT WITHIN TO REACH. ENDORSED ONCOMING NURSE FOLLOW PLAN OF CARE.
[2019-03-24 21:01] VITALS: BP 144/81
--- NOTE | 2019-03-24 23:10 | NUR ---
MS/RN PATIENT IS SLEEPING AT THIS TIME, APPEAR COMFORTABLE, NO SIGNS OF DISTRESS NOTED CALL LIGHT IN REACH. WILL CONTINUE TO MONITOR.
--- NOTE | 2019-03-25 06:08 | NUR ---
MS/RN PATIENT IS STILL SLEEPING AT THIS TIME, APPEAR COMFORTABLE, NO SIGNS OF DISTRESS NOTED, CALL LIGHT IN REACH. ALL NEEDS ATTENDED AT THIS TIME, WILL CONTINUE TO MONITOR.
[2019-03-25] MEDS: BLOOD SUGAR DIAGNOSTIC 1 EACH STRIP IN SCH ×4 (06:35→21:32)
[2019-03-25 07:20] LABS: CALCIUM, SERUM 9.4 mg/dL (8.5-10.1); CARBON DIOXIDE 20 mmol/L (21-32); CHLORIDE 102 mmol/L (98-107); GLUCOSE 113 mg/dL (74-106); POTASSIUM 3.8 mmol/L (3.5-5.1); SODIUM SERUM 142 mmol/L (136-145)
[2019-03-25 07:41] LABS: BASOPHILS # (AUTO) 0.1 /CMM (0.0-0.2); BASOPHILS % (AUTO) 0.7 % (0.0-2.0); EOSINOPHILS % (AUTO) 1.6 % (0.0-6.0); HEMATOCRIT 33 % (39-51); HEMOGLOBIN 10.9 g/dL (13.5-17.5); LYMPHOCYTES # (AUTO) 2.2 /CMM (0.8-4.8); LYMPHOCYTES % (AUTO) 21.1 % (20.0-44.0); MEAN CORPUSCULAR HGB CONC 33 g/dl (31.0-36.0); MEAN CORPUSCULAR VOLUME 88 fL (80-96); MONOCYTES # (AUTO) 1.4 /CMM (0.1-1.30); MONOCYTES % (AUTO) 13.7 % (2.0-12.0); NEUTROPHILS # (AUTO) 6.6 /CMM (1.8-8.9); NEUTROPHILS % (AUTO) 62.9 % (43.0-81.0); PLATELET COUNT (AUTO) 247 /CMM (150-450); WHITE BLOOD COUNT (AUTO) 10.4 K/uL (4.3-11.0)
[2019-03-25 07:51] LABS: CREATININE 8.7 mg/dL (0.6-1.3); UREA NITROGEN, BLOOD 84 mg/dL (7-18)
[2019-03-25 08:00] VITALS: BP 132/83
[2019-03-25] MEDS: SEVELAMER CARBONATE 800 MG TABLET PO SCH ×3 (08:00→17:53)
--- NOTE | 2019-03-25 08:00 | NUR ---
RN NOTES RECEIVED PATIENT IN THE BED SLEEPING, PATIENT HAS NO ACUTE RESPIRATORY DISTRESS, AROUSE WHEN CALLED NAME OR TOUCHED.V/S STABLE, ASSIST PATIENT TURN AND REPOSTION Q 2 HR. CALL LIGHT WITHIN TO REACH, SAFETY PRECAUTION MAINTAINED ALL THE TIME.
--- NOTE | 2019-03-25 09:00 | NUR ---
RN NOTES PATIENT POOR EATER, ADMINISTERED SCHEDULED MEDICATION CRUSHED AND MIXED WITH APPLE SAUCE, NEEDS ATTENDED AND ANTICIPATED, CALL LIGHT WITHIN TO REACH, PATIENT TURN AND REPOSTION KAISER IN THE BED, DVT PUMP ON, IV ACCESS ON RIGHT FA INTACT.
[2019-03-25] MEDS: METOPROLOL TARTRATE 50 MG TABLET PO SCH ×2 (10:36→21:00)
[2019-03-25] MEDS: NIFEdipine XL 60 MG TAB PO SCH (10:37)
[2019-03-25] MEDS: ATORVASTATIN 10 MG TABLET PO SCH (10:37)
[2019-03-25] MEDS: TAMSULOSIN 0.4 MG CAP.SR.24H PO SCH (10:37)
[2019-03-25] MEDS: ESCITALOPRAM OXALATE (10 MG) 10 MG TABLET PO SCH (10:37)
--- NOTE | 2019-03-25 11:45 | NUR ---
RN NOTES PATIENT GETTING HEMODIALYSIS AT THIS TIME, CONTINUED MONITORING.
--- NOTE | 2019-03-25 13:30 | NUR ---
RN NOTES FINISHED HD AT THIS TIME PER DIALYSIS NURSE ONLY CLEANING NO OUTPUT TODAY, PATIENT WILL HAVE HD TOMORROW ALSO, BP 92/50, P-85, PATIENT REFUSED EAT, BS-135 MG/DL. PATIENT STATE "I WILL LIKE TO SLEEP AT THIS TIME". CALL LIGHT WITHIN TO REACH, CONTINUED MONITORING. ASSIST TURN AND REPOSTION Q 2 HR.
[2019-03-25 16:00] VITALS: BP 100/62
[2019-03-25] MEDS: CEFTRIAXONE 1 G in IV D5W 50 ML IV SCH (17:52)
--- NOTE | 2019-03-25 18:30 | NUR ---
RN NOTES PATIENT STABLE ASSIST EATING DINNER 20%, INFUSING ROCEPHIN 100 ML/HR INTACT ON RIGHT FA I, PATIENT REUSED PAIN. ENCOURAGED TO INCREASE FLUID INTACT. CALL LIGHT WITHIN TO REACH. ENDORSED ONCOMING NURSE FOLLOW PLAN OF CARE.
--- NOTE | 2019-03-25 19:50 | NUR ---
MS RN NOTE: PATIENT RESTING IN BED, NO ACUTE DISTRESS NOTED. BREATHING EVEN AND UNLABORED, NO SOB NOTE. IV TO LEFT HAND IN PLACE. HD SITE TO LEFT CHEST WALL IN PLACE, NO BLEEDING NOTED. BED LOCKED AND IN LOWEST POSITION, CALL LIGHT IN REACH. WILL CONTINUE TO MONITOR.
[2019-03-25 20:10] VITALS: BP 116/64
[2019-03-25] MEDS: INSULIN REGULAR, HUMAN 100 UNIT/ML 3 ML VIAL SQ PRN (21:33)
--- NOTE | 2019-03-25 21:40 | NUR ---
MS ZAMORA NOTE: PATIENT BLOOD SUGAR LEVEL 193MG/DL, PATIENT TO RECEIVE 3 UNITS PER SLIDING SCALE, NO S/S OF HYPER/HYPOGLYCEMIA NOTED. WILL CONTINUE TO MONITOR. Addendum: 03/25/19 at 2143 by EDI ESTRADA RN PATIENT BLOOD PRESSURE 100/64, HR 87, LOPRESSOR HELD AT THIS TIME.
[2019-03-26] MEDS: BLOOD SUGAR DIAGNOSTIC 1 EACH STRIP IN SCH ×3 (07:03→16:22)
--- NOTE | 2019-03-26 07:15 | NUR ---
MS RN NOTE: PATIENT RESTING IN BED, NO ACUTE DISTRESS NOTED. BREATHING EVEN AND UNLABORED, NO SOB NOTE. IV TO LEFT HAND IN PLACE. HD SITE TO LEFT CHEST WALL IN PLACE. PATIENT BLOOD SUGAR LEVEL 108MG/DL, NO INSULIN NEEDED PER SLIDING SCALE. NO S/S OF HYPER/HYPOGLYCEMIA NOTED. BED LOCKED AND IN LOWEST POSITION, CALL LIGHT IN REACH. WILL ENDORSE TO DAY NURSE TO CONTINUE WITH PLAN OF CARE.
[2019-03-26 07:59] LABS: CALCIUM, SERUM 8.8 mg/dL (8.5-10.1); CARBON DIOXIDE 23 mmol/L (21-32); CHLORIDE 103 mmol/L (98-107); GLUCOSE 113 mg/dL (74-106); POTASSIUM 3.9 mmol/L (3.5-5.1); SODIUM SERUM 141 mmol/L (136-145); UREA NITROGEN, BLOOD 65 mg/dL (7-18)
[2019-03-26 08:00] VITALS: BP 128/65
--- NOTE | 2019-03-26 08:00 | NUR ---
RN NOTES RECEIVED PATIENT IN THE BED A/O X3, PATIENT ON GOOD MOOD TODAY, NO ACUTE RESPIRATORY DISTRESS, V/S STABLE, ADMINISTERED SCHEDULED MEDICATION, PATIENT TOLERATED FOOD 40 %, REFUSED PAIN AT THIS TIME. PATIENT ABLE TO TURN AND REPOSTION SELF IN THE BED. PATIENT INCONTINENT, APPLIED Z-GUARD, SAFETY PRECAUTION MAINTAINED ALL THE TIME.
[2019-03-26 08:01] LABS: CREATININE 7.5 mg/dL (0.6-1.3)
[2019-03-26 08:30] LABS: BASOPHILS # (AUTO) 0.1 /CMM (0.0-0.2); BASOPHILS % (AUTO) 0.8 % (0.0-2.0); EOSINOPHILS % (AUTO) 1.5 % (0.0-6.0); HEMATOCRIT 32 % (39-51); HEMOGLOBIN 10.8 g/dL (13.5-17.5); LYMPHOCYTES # (AUTO) 1.8 /CMM (0.8-4.8); LYMPHOCYTES % (AUTO) 19.1 % (20.0-44.0); MEAN CORPUSCULAR HGB CONC 33 g/dl (31.0-36.0); MEAN CORPUSCULAR VOLUME 89 fL (80-96); MONOCYTES # (AUTO) 1.4 /CMM (0.1-1.30); MONOCYTES % (AUTO) 14.3 % (2.0-12.0); NEUTROPHILS # (AUTO) 6.2 /CMM (1.8-8.9); NEUTROPHILS % (AUTO) 64.3 % (43.0-81.0); PLATELET COUNT (AUTO) 225 /CMM (150-450); RED BLOOD CELL COUNT(AUTO) 3.66 MIL/uL (4.5-6.0); WHITE BLOOD COUNT (AUTO) 9.7 K/uL (4.3-11.0)
[2019-03-26] MEDS: TAMSULOSIN 0.4 MG CAP.SR.24H PO SCH (08:56)
[2019-03-26] MEDS: ATORVASTATIN 10 MG TABLET PO SCH (08:56)
[2019-03-26] MEDS: NIFEdipine XL 60 MG TAB PO SCH (08:56)
[2019-03-26] MEDS: ESCITALOPRAM OXALATE (10 MG) 10 MG TABLET PO SCH (08:57)
[2019-03-26] MEDS: SEVELAMER CARBONATE 800 MG TABLET PO SCH ×2 (08:57→13:00)
[2019-03-26] MEDS: METOPROLOL TARTRATE 50 MG TABLET PO SCH (08:57)
--- NOTE | 2019-03-26 10:57 | NUR ---
RN NOTES PATIENT GETTING HEMODIALYSIS AT THIS TIME, STABLE, DAUGHTER NEXT TO THE BED.
[2019-03-26] MEDS: INSULIN REGULAR, HUMAN 100 UNIT/ML 3 ML VIAL SQ PRN (13:39)
--- NOTE | 2019-03-26 13:40 | NUR ---
RN NOTES ADMINISTERED MILK OF MAGNESIA 30 ML PO PRN FOR CONSTIPATION, CONTINUED MONITORING.
[2019-03-26] MEDS ORDERED: NEPRO VAN 237 ML CAN PO PRN (15:30)
[2019-03-26 16:00] VITALS: BP 115/64
[2019-03-26] MEDS: CEFTRIAXONE 1 G in IV D5W 50 ML IV SCH (16:22)
--- NOTE | 2019-03-26 17:15 | NUR ---
RN NOTES PATIENT WILL D/C SNF. PER HOSPITALIST Dr HINOJOSA'S ORDER.
--- NOTE | 2019-03-26 18:40 | NUR ---
MARKETING ANALYST NOTES PATIENT DISCHARGE AT THIS TIME GOING SNF. PATIENT A/O X3, STABLE NO ACUTE RESPIRATORY DISTRESS, V/S STABLE, REFUSED PAIN AT THIS TIME. MED RECONCILIATION AND DISCHARGE ORDER REVIEWED AND EXPLAINED TO PATIENT. REPORT GIVEN SNF RN CAMPBELL. RN VERNALIZED UNDERSTANDING. PATIENT REFUSED SIGN PAPERWORK. BELONGING WITH THE PATIENT. PATIENT WILL FOLLOW SNF WATER CONSERVATIONIST, AND SO US NAY ON TUESDAY, TUESDAY, AND TUESDAY. FAMILY AWARE OF DISCHARGE PLANING. PATIENT GROUNDSKEEPER BY AMBULANCE.L
== END 2019-03-26 18:34 | DRG 673 ==
LOC: ER 15:19 → TELE 18:37 → MED 03-18 11:07
PROVIDERS: ADMIT Nurse Practitioner Acute Care; ATTEND Family Medicine
PROC: 0JHF3WZ Insertion of Totally Implantable Vascular Access Device into Left Upper Arm Subcutaneous Tissue and Fascia, Percutaneous Approach (ICD-10-PCS; principal; 2019-03-20)
PROC: 05H633Z Insertion of Infusion Device into Left Subclavian Vein, Percutaneous Approach (ICD-10-PCS; 2019-03-20)
PROC: B547ZZA Ultrasonography of Left Subclavian Vein, Guidance (ICD-10-PCS; 2019-03-20)
PROC: 5A1D70Z Performance of Urinary Filtration, Intermittent, Less than 6 Hours Per Day (ICD-10-PCS; 2019-03-20)
DX: N17.0 Acute kidney failure with tubular necrosis (principal); G93.41 Metabolic encephalopathy; N39.0 Urinary tract infection, site not specified; I12.0 Hypertensive chronic kidney disease with stage 5 chronic kidney disease or end stage renal disease; E87.2 Acidosis; N13.30 Unspecified hydronephrosis; E11.22 Type 2 diabetes mellitus with diabetic chronic kidney disease; E86.0 Dehydration; N18.6 End stage renal disease; N40.0 Benign prostatic hyperplasia without lower urinary tract symptoms; Z90.49 Acquired absence of other specified parts of digestive tract; Z85.51 Personal history of malignant neoplasm of bladder; Z96.0 Presence of urogenital implants; Z79.899 Other long term (current) drug therapy; Z79.84 Long term (current) use of oral hypoglycemic drugs; F32.9 Major depressive disorder, single episode, unspecified; F41.9 Anxiety disorder, unspecified; E87.5 Hyperkalemia; D63.8 Anemia in other chronic diseases classified elsewhere; E78.5 Hyperlipidemia, unspecified; E83.39 Other disorders of phosphorus metabolism; N32.81 Overactive bladder; E87.6 Hypokalemia; M10.9 Gout, unspecified; R32 Unspecified urinary incontinence
CPT/HCPCS: 36415; 71045-TC; 76700-TC; 80048-TC; 80053-TC; 80061-TC; 80076-TC; 81000-TC; 82550-TC; 82962-TC; 83690-TC; 83735-TC; 83970; 84100-TC; 84155; 84165; 85025-TC; 85730-TC; 86704; 86705; 86706; 86803; 87081-TC; 87086-TC; 87186-TC; 87340; 90935-TC; 97110-TC; 97530-TC; C1750; C1751; G0378; J0690; J0696; J1644; J1815; J1940; J2150; J2405; J2704; J2765; J2997; J3490; J7030; J7050; J7060

== ENCOUNTER 2019-04-04 08:18 | Inpatient (IN) | payer MEDICARE, MEDICAID ==
[~2019-04-04] VITALS: Ht 180.3 cm; Wt 90.7 kg
[~2019-04-04 08:18] MED LIST changes: -CEFD300C3; +FEXO-263 PO; -MERO500V IV; -[UNRECOGNIZED DRUG - CODE] PO
--- NOTE | 2019-04-04 08:45 | NUR ---
patient came in to the ER BIBPA, from [facility], altered, on room air, breathing evenly and unlabored. connected to the monitor and pulse ox. Respond to tactile stimulant, opens eye. Will continue to monitor accordingly.
--- NOTE | 2019-04-04 08:47 | NUR ---
urine collected and sent to lab
--- NOTE | 2019-04-04 08:56 | NUR ---
wheeled patient via gurney to mo.
[2019-04-04] MEDS ORDERED: IV NS 0.9% 1,000 ML BAG IV ONE (09:00)
--- NOTE | 2019-04-04 09:06 | NUR ---
patient came back from ct
[2019-04-04 09:11] LABS: APPEARANCE,URINE CLOUDY (CLEAR); BILIRUBIN,URINE NEGATIVE (NEGATIVE); COLOR,URINE YELLOW (YELLOW); KETONES,URINE NEGATIVE (NEGATIVE); UGLUCOSE NEGATIVE (NEGATIVE)
[2019-04-04 09:12] LABS: PH,URINE 7.5 (5.0-8.0); PROTEIN,URINE 2+ mg/dl (NEGATIVE)
[2019-04-04 09:13] LABS: BLOOD, URINE 3+ Ery/uL (NEGATIVE)
[2019-04-04 09:14] LABS: LEUKOCYTE ESTERASE ,URINE 3+ (NEGATIVE); NITRITE, URINE NEGATIVE (NEGATIVE)
[2019-04-04 09:17] LABS: BACTERIA,URINE 1+ /HPF (None Seen); WBC,URINE TOO NUMEROUS TO COUN /HPF (0-3)
[2019-04-04 09:18] LABS: SQUAMOUS EPITHELIAL CELL,UR 0-2 /HPF (None Seen)
[2019-04-04 09:33] LABS: BASOPHILS % (AUTO) 0.6 % (0.0-2.0); EOSINOPHILS % (AUTO) 0.1 % (0.0-6.0); HEMATOCRIT 30 % (39-51); HEMOGLOBIN 9.9 g/dL (13.5-17.5); LYMPHOCYTES % (AUTO) 13.4 % (20.0-44.0); MEAN CORPUSCULAR HGB CONC 33 g/dl (31.0-36.0); MEAN CORPUSCULAR VOLUME 91 fL (80-96); MONOCYTES # (AUTO) 1.4 /CMM (0.1-1.30); MONOCYTES % (AUTO) 18.3 % (2.0-12.0); NEUTROPHILS # (AUTO) 5.1 /CMM (1.8-8.9); NEUTROPHILS % (AUTO) 67.6 % (43.0-81.0); PLATELET COUNT (AUTO) 223 /CMM (150-450); RED BLOOD CELL COUNT(AUTO) 3.31 MIL/uL (4.5-6.0); WHITE BLOOD COUNT (AUTO) 7.6 K/uL (4.3-11.0)
[2019-04-04] MEDS ORDERED: INSU100I26 SQ (09:34)
[2019-04-04] MEDS ORDERED: SITA50TA PO (09:34)
[2019-04-04] MEDS ORDERED: HYDR-4076 PO (09:34)
[2019-04-04] MEDS ORDERED: ACET-2605 PO (09:34)
[2019-04-04] MEDS ORDERED: MAGN400O6 PO (09:34)
[2019-04-04] MEDS ORDERED: VITA-339 PO (09:34)
[2019-04-04] MEDS ORDERED: FOLI0.8T41 PO (09:34)
[2019-04-04] MEDS ORDERED: ACET-868 PO (09:34)
[2019-04-04] MEDS ORDERED: ASPI-1169 PO (09:34)
[2019-04-04] MEDS ORDERED: INSU100V3 SQ (09:34)
[2019-04-04] MEDS ORDERED: DOCU-141 PO (09:34)
[2019-04-04] MEDS ORDERED: LACT1CAP94 PO (09:34)
[2019-04-04 09:38] LABS: CARBON DIOXIDE 27 mmol/L (21-32); CHLORIDE 96 mmol/L (98-107); GLUCOSE 127 mg/dL (74-106); POTASSIUM 4.7 mmol/L (3.5-5.1); SODIUM SERUM 133 mmol/L (136-145); UREA NITROGEN, BLOOD 49 mg/dL (7-18)
[2019-04-04 09:44] LABS: ALANINE AMINOTRANSFERASE 18 U/L (12-78); ALBUMIN 2.7 g/dL (3.4-5.0); ALCOHOL, BLOOD < 3 mg/dL (0-0); ALKALINE PHOSPHATASE 119 U/L (46-116); ASPARTATE AMINOTRANSFERASE 24 U/L (15-37); BILIRUBIN,DIRECT 0.1 mg/dL (0.0-0.2); BILIRUBIN,TOTAL 0.3 mg/dL (0.2-1.0); SALICYLATE 1.7 mg/dL (2.8-20.0); TOTAL PROTEIN, SERUM 7.7 g/dL (6.4-8.2)
[2019-04-04 09:45] LABS: ACETAMINOPHEN 0 ug/ml (10-30)
[2019-04-04 09:48] LABS: CREATININE 8.9 mg/dL (0.6-1.3)
[2019-04-04 10:52] LABS: BAND % (MANUAL) 2 % (0.0-5.0); LYMPHOCYTES % (MANUAL) 15 % (16-48); MONOCYTES % (MANUAL) 15 % (0-11.0); NEUTROPHILS % (MANUAL) 68 (42-76)
[2019-04-04] MEDS ORDERED: CEFTRIAXONE 1GM BAG (ER ONLY) 1 GM/50 ML PIGGYBACK IV ONE (11:00)
[2019-04-04] MEDS ORDERED: CEFTRIAXONE 1GM BAG (ER ONLY) 50 ML IV ONE (11:03)
--- NOTE | 2019-04-04 11:50 | NUR ---
CALLED [facility] PAGED ASHISH
--- NOTE | 2019-04-04 12:13 | NUR ---
BED ASSIGNED 309-1
--- NOTE | 2019-04-04 12:30 | NUR ---
Report given to Charmaine ZAMORA for prosper.
[2019-04-04 14:00] VITALS: BP 111/52
--- NOTE | 2019-04-04 14:00 | NUR ---
MS PLATING FOREMAN NOTE PT ARRIVED TO MS UNIT VIA GURNEY IN STABLE CONDITION. PT IS A/O X1. RESPIRATIONS ARE EVEN AND UNLABORED, NOT IN ANY ACUTE DISTRESS NOTED. PUPILS ARE REACTIVE TO LIGHT, UNABLE TO ASSESS HAND MAIL HANDLER SORTER PT IS CONFUSED AND UNABLE TO FOLLOW COMMANDS. NO FACIAL GRIMACING OR MOANING NOTED. ABDOMEN IS SOFT AND NONDISTENDED, BOWEL SOUNDS ARE PRESENT IN ALL 4 QUADRANTS UPON AUSCULTATION. BLADDER IS NONDISTENDED. REDNESS/DISCOLORATIONS NOTED TO BUE, HEELS AND LEFT 3RD/4TH DIGIT TOES, REDNESS TO SACRAL, SCAB TO RIGHT BIG TOE. PICTURES PLACED IN CHART. IV SITE TO LET HAND 18G INTACT, NO INFILTRATION NOTED. DRESSING KEPT CLEAN AND DRY. SAFETY MEASURES ARE IN PLACE. CALL LIGHT IS LEFT WITHIN REACH. DR. PERDOMO MADE AWARE OF ADMISSION. WILL MONITOR PT THROUGHOUT SHIFT FOR CONTINUITY OF CARE.
--- NOTE | 2019-04-04 14:10 | NUR ---
Wheeled patient via gurney accompanied by RN and emt in no apparent distress, Alva RN at bedside to assume care.
--- NOTE | 2019-04-04 17:15 | NUR ---
MS RN NOTES-- PT WAS SEEN AND EXAMINED BY DR. PERDOMO.
[2019-04-04] MEDS ORDERED: ACETAMINOPHEN 325 MG TABLET PO PRN ×2 (17:30)
[2019-04-04] MEDS ORDERED: LACTULOSE 10 G/15 ML UDC (PYXIS) PO PRN (17:30)
[2019-04-04] MEDS ORDERED: ENOXAPARIN SODIUM 30 MG/0.3 ML DISP.SYRIN SQ SCH (17:30)
[2019-04-04] MEDS ORDERED: ZOLPIDEM TARTRATE 5 MG TABLET PO PRN (17:30)
[2019-04-04] MEDS ORDERED: HYDROCODONE/APAP 5/325MG 1 EACH TABLET PO PRN (17:30)
[2019-04-04] MEDS ORDERED: ONDANSETRON HCL/PF 4 MG/2 ML VIAL IVP PRN (17:30)
[2019-04-04] MEDS ORDERED: MAG HYDROX/AL HYDROX/SIMETH 30 ML UDC PO PRN (17:30)
[2019-04-04] MEDS ORDERED: MAGNESIUM HYDROXIDE 30 ML UDC PO PRN ×2 (17:30)
[2019-04-04] MEDS ORDERED: Z GUARD REMEDY 2 OZ OINT TP PRN (17:30)
[2019-04-04] MEDS: IV D5/0.45 NACL 1,000 ML IV PRN (17:47)
[2019-04-04] MEDS: HEPARIN SODIUM, PORCINE 5000 UNITS/1 ML VIAL SQ SCH (17:50)
[2019-04-04 18:00] VITALS: BP 110/52
--- NOTE | 2019-04-04 18:25 | NUR ---
MS RN CLOSING NOTES NEEDS MET AND RENDERED. PT REMAINS A/O X1, AFEBRILE. RESPIRATIONS ARE EVEN AND UNLABORED, NOT IN ANY ACUTE DISTRESS NOTED. NO FACIAL GRIMACING OR MOANING NOTED. IV SITE TO LEFT HAND G18 INTACT, NO INFILTRATION NOTED. DRESSING KEPT CLEAN AND DRY. SAFETY MEASURES ARE IN PLACE. REMINDED PT TO USE CALL LIGHT WHEN ASSISTANCE IS NEEDED, CALL LIGHT IS LEFT WITHIN REACH. WILL ENDORSE TO NEXT SHIFT FOR CONTINUITY OF CARE.
--- NOTE | 2019-04-04 19:58 | NUR ---
MS/RN OPENING NOTES RECEIVED PATIENT IN BED, RESTING COMFORTABLY IN BED, ABLE TO AROUSE WITH VERBAL STIMULI AND TOUCH. , RESPIRATIONS EVEN AND UNLABORED, REQUIRE ASSISTANCE WITH ALL NEEDS, PER RN PATIENT HAS BEEDN SLEEPIN AND NOT ABLE TO HAVE DINNER, WILL MONITOR FOR ANY CHANGES, BED LOCKED, CALL LIGHTS WITHIN REACH, WILL MONITOR. BED LOCKED, CALL LIGHTS WITHIN REACH.
[2019-04-04 20:00] VITALS: BP 109/53
[2019-04-04] MEDS: METOPROLOL TARTRATE 50 MG TABLET PO SCH (20:55)
[2019-04-04] MEDS: PIPERACILLIN /TAZOBACTAM 2.25 G in IV D5W 50 ML IV SCH (21:02)
[2019-04-04] MEDS: INSULIN GLARGINE, 100 UNIT/ML CARTRIDGE SQ SCH (21:12)
[2019-04-04] MEDS: TAMSULOSIN 0.4 MG CAP.SR.24H PO SCH (22:38)
[2019-04-05] MEDS: PIPERACILLIN /TAZOBACTAM 2.25 G in IV D5W 50 ML IV SCH ×3 (04:03→21:09)
--- NOTE | 2019-04-05 06:53 | NUR ---
MS/RN CLOSING NOTES PATIENT IN BED, RESTING COMFORTABLY ON ROOM AIR, REQUIRE EXTENSIVE ASSISTANCE PATIENT IS ALERT X1 ONLY, ABLE TO RESPOND WITH NOD, BED LOCKED, CALL LIGHTS WITHIN REACH, WILL ENDORSE TO AM RN FOR ROSIE. LAB UNABLE TO DRAW BLOOD PATIENT REFUSES NEREIDA COMBATIVE WILL TRY AGAIN LATER. WILL ENDORSE TO AM RN FOR ROSIE.
--- NOTE | 2019-04-05 07:30 | NUR ---
MS/RN NOTE THE PATIENT IS RECEIVED IN BED. PATIENT ALERT AND ORIENTED X1. ABLE TO MAKE NEEDS KNOWN VERBALLY. THE PATIENT DENIES SOB. HE IS IN ROOM AIR. RESPIRATION REGULAR AND UNLABORED. DENIES PAIN. THE PATIENT IN NO APPARENT DISTRESS. LEFT HAND G 18 PATENT AND D5 1/2NS INFUSING AT 75ML/HR AND NO S/S INFILTRATION NOTED. BED LOW AND LOCKED. SIDE RIALS UP X3. CALL LIGHT WITHIN REACH. WILL CONTINUE TO MONITOR.
[2019-04-05 08:00] VITALS: BP 116/69
[2019-04-05] MEDS: LINAGLIPTIN 5 MG TABLET PO SCH (08:47)
[2019-04-05] MEDS: VIT B CMPLX 3/FA/VIT C/BIOTIN 1 TAB TABLET PO SCH (08:47)
[2019-04-05] MEDS: LACTOBACILLUS RHAMNOSUS GG 1 EACH CAP.SPRINK PO SCH ×3 (08:47→17:30)
[2019-04-05] MEDS: ASPIRIN 81 MG TAB.CHEW PO SCH (08:47)
[2019-04-05] MEDS: DOCUSATE SODIUM 100 MG CAPSULE PO SCH ×2 (08:47→17:30)
[2019-04-05] MEDS: ATORVASTATIN 10 MG TABLET PO SCH (08:48)
[2019-04-05] MEDS: clonazePAM 0.5 MG TABLET PO SCH (08:48)
[2019-04-05] MEDS: ESCITALOPRAM OXALATE (10 MG) 10 MG TABLET PO SCH (08:48)
[2019-04-05] MEDS: HEPARIN SODIUM, PORCINE 5000 UNITS/1 ML VIAL SQ SCH ×2 (08:50→21:11)
[2019-04-05] MEDS: NIFEdipine XL 60 MG TAB PO SCH (09:00)
[2019-04-05] MEDS ORDERED: VITAMIN K2 PO SCH (09:00)
[2019-04-05] MEDS: METOPROLOL TARTRATE 50 MG TABLET PO SCH ×2 (09:00→21:10)
[2019-04-05] MEDS ORDERED: VITAMIN D3 PO SCH (09:00)
[2019-04-05] MEDS ORDERED: Medication Not On Formulary EA (Fesoterodine Fumarate (Toviaz) 8 MG) PO SCH (09:00)
[2019-04-05] MEDS: IV D5/0.45 NACL 1,000 ML IV PRN (09:22)
--- NOTE | 2019-04-05 10:47 | NUR ---
WOUND CARE CONSULT: PT PRESENTS WITH MULTIPLE WOUNDS AND SKIN ISSUES INCLUDING RASH TO PERINEAL/PERIANAL AREA WITH INCONTINENCE, SACRAL AND BUTTOCK DEEP TISSUE INJURIES, HEEL DEEP TISSUE INJURIES (INTACT), WOUNDS BETWEEN LEFT 3RD AND 4TH TOES, PRESENT ON ADMISSION. DPM CONSULT REQUESTED. DR LOVE NOTIFIED. RECOMMENDATIONS MADE FOR SKIN PROTECTION AND WOUND CARE. DISCUSSED WITH NURSING STAFF. PT ON [facility] BED (ISOFLEX). WILL SEE PRN. MANCINI IN AGREEMENT WITH PLAN OF CARE. Addendum: 04/05/19 at 1049 by JIMMY SHIELDS WNDNU Amended: Links added.
--- NOTE | 2019-04-05 14:07 | NUR ---
MS/RN NOTE RECEIVED THE FOLLOWING NEW ORDERS FROM DR PERDOMO: MILD INSULIN SLIDING SCALE ACHS, PUREED DIET AND DISCONTINUE D5 1/2 NS. ALL THE ORDERS ARE READ BACK, VERIFIED. NOTED AND CARRIED OUT.
[2019-04-05] MEDS ORDERED: DEXTROSE 50%-WATER 50 ML DISP.SYRIN IV PRN (14:30)
--- NOTE | 2019-04-05 15:00 | NUR ---
MS/RN NOTE DR BOWER IS AWARE OF ABNORMAL BUN, CREATININE AND PHOSPHORUS RESULTS AND NO NEW ORDERS. PER DR BOWER THE PATIENT WILL HAVE DIALYSIS 04/06/19.
[2019-04-05 15:30] LABS: BASOPHILS % (AUTO) 0.6 % (0.0-2.0); EOSINOPHILS % (AUTO) 1.5 % (0.0-6.0); HEMATOCRIT 27 % (39-51); HEMOGLOBIN 8.8 g/dL (13.5-17.5); LYMPHOCYTES # (AUTO) 1.2 /CMM (0.8-4.8); LYMPHOCYTES % (AUTO) 21.1 % (20.0-44.0); MEAN CORPUSCULAR HGB CONC 32 g/dl (31.0-36.0); MEAN CORPUSCULAR VOLUME 92 fL (80-96); MONOCYTES % (AUTO) 18.7 % (2.0-12.0); NEUTROPHILS # (AUTO) 3.2 /CMM (1.8-8.9); NEUTROPHILS % (AUTO) 58.1 % (43.0-81.0); PLATELET COUNT (AUTO) 203 /CMM (150-450); RED BLOOD CELL COUNT(AUTO) 2.96 MIL/uL (4.5-6.0); WHITE BLOOD COUNT (AUTO) 5.6 K/uL (4.3-11.0)
[2019-04-05 15:42] LABS: CALCIUM, SERUM 8.5 mg/dL (8.5-10.1); CARBON DIOXIDE 23 mmol/L (21-32); CHLORIDE 98 mmol/L (98-107); GLUCOSE 118 mg/dL (74-106); MAGNESIUM 2.4 mg/dL (1.8-2.4); POTASSIUM 4.5 mmol/L (3.5-5.1); SODIUM SERUM 136 mmol/L (136-145); UREA NITROGEN, BLOOD 60 mg/dL (7-18)
[2019-04-05 15:43] LABS: CREATININE 10.3 mg/dL (0.6-1.3)
[2019-04-05 15:44] LABS: PHOSPHORUS 8.1 mg/dL (2.5-4.9)
[2019-04-05 15:45] LABS: CHOLESTEROL 94 mg/dL (<200); HDL CHOLESTEROL 39 mg/dL (40-60); LDL 45 mg/dL (0-99); TRIGLYCERIDES 87 mg/dL (30-150)
--- NOTE | 2019-04-05 15:53 | NUR ---
Readmitted in less than 14days. Patient currently resides at [facility] [phone]. He requires assistance with adl's. On hemodialysis TThS 1pm at [facility] [phone]. Currently on bedhold with plan to return to [facility] once discharge. Addendum: 04/05/19 at 1553 by NISHA ROJAS RN Amended: Links added.
[2019-04-05 16:00] VITALS: BP 120/65
[2019-04-05] MEDS: CLOTRIMAZOLE 1% 15 GM TUBE TP SCH (17:00)
[2019-04-05 17:22] LABS: BAND % (MANUAL) 1 % (0.0-5.0); LYMPHOCYTES % (MANUAL) 13 % (16-48); MONOCYTES % (MANUAL) 10 % (0-11.0); NEUTROPHILS % (MANUAL) 76 (42-76)
[2019-04-05] MEDS: BLOOD SUGAR DIAGNOSTIC 1 EACH STRIP IN SCH ×2 (17:30→21:13)
--- NOTE | 2019-04-05 19:14 | NUR ---
MS/RN NOTE THE PATIENT ALERT AND ORIENTED X1. IN ROOM AIR AND SATURATION IS AT 95%. DENIES SOB. RESPIRATION REGULAR AND UNLABORED. DENIES PAIN. THE PATIENT IN NO APPARENT DISTRESS. LEFT HAND G 18 PATENT AND SALINE LOCKED. LCQ HD CATH PRESENT. PATIENT TOLERATED PURRED DIET WELL. BED LOW AND LOCKED. SIDE RAILS UP X3. CALL LIGHT WITHIN REACH. LEFT MESSAGE WITH RO FOR ULORIC AND TOVIAZ MEDICATIONS TO BE DELIVERED BUT NO CALL BACK. WILL ENDORSE TO ANIMAL KEEPER.
--- NOTE | 2019-04-05 19:17 | NUR ---
MS/RN NOTE SEVERAL CALL TO PHARMACY WERE MADE TO DELIVER LOTRIMIN 1% CREAM DUE AT 1700 BUT THE MEDICATION WAS NOT DELIVERED AND WAS NOT ADMINISTERED. SURVEILLANCE OPERATOR IS MADE AWARE TO CONTINUE TO FOLLOW UP.
--- NOTE | 2019-04-05 19:30 | NUR ---
RN NOTES RECEIVED PT. AWAKE ON BED, WITH RIGHT SIDED WEAKNESS, NOT IN DISTRESS, NO PAIN NOTED, CALL LIGHT WITHIN REACH, SIDERAILSUPX2, CONTINUE TO MONITOR
[2019-04-05 20:00] VITALS: BP_SYST 112; BP_SYST 115; BP_DIAS 63
[2019-04-05] MEDS: TAMSULOSIN 0.4 MG CAP.SR.24H PO SCH (21:10)
[2019-04-05] MEDS: INSULIN GLARGINE, 100 UNIT/ML CARTRIDGE SQ SCH (21:32)
--- NOTE | 2019-04-05 21:33 | NUR ---
RN NOTES PT. BLOOD SUGAR- 90.. LANTUS 6 UNITS WAS HOT GIVEN.. PT REFUSED TO EAT
[2019-04-06] MEDS: PIPERACILLIN /TAZOBACTAM 2.25 G in IV D5W 50 ML IV SCH ×3 (05:17→21:59)
--- NOTE | 2019-04-06 06:21 | NUR ---
RN NOTES AWAKE, MORNING CARE , NOT IN DISTRESS, NO PAIN NOTED, SIDERAILSUPX2, PT. NEEDS ATTENDED
[2019-04-06 07:05] LABS: BASOPHILS % (AUTO) 0.8 % (0.0-2.0); EOSINOPHILS % (AUTO) 2.5 % (0.0-6.0); HEMATOCRIT 29 % (39-51); HEMOGLOBIN 9.4 g/dL (13.5-17.5); LYMPHOCYTES # (AUTO) 1.4 /CMM (0.8-4.8); LYMPHOCYTES % (AUTO) 26.9 % (20.0-44.0); MEAN CORPUSCULAR HGB CONC 33 g/dl (31.0-36.0); MEAN CORPUSCULAR VOLUME 91 fL (80-96); MONOCYTES # (AUTO) 0.9 /CMM (0.1-1.30); MONOCYTES % (AUTO) 16.8 % (2.0-12.0); NEUTROPHILS # (AUTO) 2.8 /CMM (1.8-8.9); PLATELET COUNT (AUTO) 226 /CMM (150-450); RED BLOOD CELL COUNT(AUTO) 3.17 MIL/uL (4.5-6.0); WHITE BLOOD COUNT (AUTO) 5.3 K/uL (4.3-11.0)
[2019-04-06 07:26] LABS: CALCIUM, SERUM 8.3 mg/dL (8.5-10.1); CARBON DIOXIDE 22 mmol/L (21-32); CHLORIDE 96 mmol/L (98-107); GLUCOSE 76 mg/dL (74-106); POTASSIUM 4.5 mmol/L (3.5-5.1); SODIUM SERUM 132 mmol/L (136-145); UREA NITROGEN, BLOOD 61 mg/dL (7-18)
[2019-04-06 07:28] LABS: CREATININE 10.4 mg/dL (0.6-1.3)
--- NOTE | 2019-04-06 07:30 | NUR ---
MS RN OPENING NOTES RECEIVED PATIENT IN BED ASLEEP, AROUSABLE. RESPONSIVE TO VERBAL AND TACTILE STIMULI. ORIENTED X1. HOB ELEVATED. NO SOB. DENIES ANY C/O PAIN NOR DISCOMFORT. NOTED PATIENT WITH EPISODE OF DISROBING SELF DESPITE OF EXPLANATIONS AND REORIENTATION PROVIDED. FREQUENT VISUAL CHECK DONE. BED IN LOWEST POSITION, LOCKED. BED ALARM ON. CALL LIGHT WITHIN REACH.
[2019-04-06 08:00] VITALS: BP 105/59
[2019-04-06] MEDS: BLOOD SUGAR DIAGNOSTIC 1 EACH STRIP IN SCH ×4 (08:25→22:16)
[2019-04-06] MEDS: NIFEdipine XL 60 MG TAB PO SCH (09:00)
[2019-04-06] MEDS: METOPROLOL TARTRATE 50 MG TABLET PO SCH ×2 (09:00→22:03)
--- NOTE | 2019-04-06 09:00 | NUR ---
MS RN NOTES HELD PROCARDIA AND LOPRESSOR. ANTICIPATING HD
[2019-04-06] MEDS: DOCUSATE SODIUM 100 MG CAPSULE PO SCH ×2 (09:15→16:52)
[2019-04-06] MEDS: LACTOBACILLUS RHAMNOSUS GG 1 EACH CAP.SPRINK PO SCH ×3 (09:15→16:52)
[2019-04-06] MEDS: clonazePAM 0.5 MG TABLET PO SCH (09:15)
[2019-04-06] MEDS: LINAGLIPTIN 5 MG TABLET PO SCH (09:15)
[2019-04-06] MEDS: ESCITALOPRAM OXALATE (10 MG) 10 MG TABLET PO SCH (09:15)
[2019-04-06] MEDS: ASPIRIN 81 MG TAB.CHEW PO SCH (09:15)
[2019-04-06] MEDS: ATORVASTATIN 10 MG TABLET PO SCH (09:15)
[2019-04-06] MEDS: VIT B CMPLX 3/FA/VIT C/BIOTIN 1 TAB TABLET PO SCH (09:15)
[2019-04-06] MEDS: HEPARIN SODIUM, PORCINE 5000 UNITS/1 ML VIAL SQ SCH ×2 (09:16→22:00)
--- NOTE | 2019-04-06 09:45 | NUR ---
MS RN NOTES AWAITING FOR DELIVERY OF LOTRIMIN CREAM FROM PHARMACY. PHARMACY AWARE
[2019-04-06] MEDS: INSULIN REGULAR, HUMAN 100 UNIT/ML 3 ML VIAL SQ PRN (12:48)
[2019-04-06 16:00] VITALS: BP 103/47
[2019-04-06] MEDS: CLOTRIMAZOLE 1% 15 GM TUBE TP SCH ×2 (16:29→16:53)
[2019-04-06] MEDS ORDERED: ALTEPLASE CATHFLO 2 MG/VIAL XX ONE (16:30)
--- NOTE | 2019-04-06 16:36 | NUR ---
MS RN NOTES UNABLE TO DIALYZED PATIENT PER HD NURSE D/T HD CATHETER OCCLUDED. ALTAPLASE ADMINISTERED BY HD NURSE. HD TX WILL BE DONE IN AM.
--- NOTE | 2019-04-06 19:00 | NUR ---
MS RN CLOSING NOTES PATIENT RESTING COMFORTABLY IN BED. NO SOB. DENIES ANY C/O PAIN NOR DISCOMFORT. IV PERIPHERAL ACCESS# 22 SL INTACT AND PATENT. BED IN LOWEST POSITION, LOCKED. CALL LIGHT WITHIN REACH. BED ALARM ON. IN NO APPARENT DISTRESS
--- NOTE | 2019-04-06 19:10 | NUR ---
MS/RN NIGHTS RECEIVED PT. SITTING UP IN BED. PT. IS AWAKE, ALERT AND ORIENTED X1-2. BREATHING EVEN AND UNLABORED ON ROOM AIR. NO SOB, RESPIRATORY DISTRESS OR COMPLAINTS OF PAIN NOTED AT THIS TIME. PT. WITH RIGHT HAND 22 GAUGE IV SALINE LOCK PRESENT, PATENT AND INTACT. PT. WITH LEFT CHEST WALL HD CATH PRESENT AND INTACT. BED LOCKED AND IN LOWEST POSITION, SIDE RAILS UP X3, BED ALARM ON, CALL LIGHT WITHIN REACH, WILL CONTINUE TO MONITOR.
[2019-04-06 20:00] VITALS: BP 127/59
[2019-04-06] MEDS: INSULIN GLARGINE, 100 UNIT/ML CARTRIDGE SQ SCH (22:00)
[2019-04-06] MEDS: TAMSULOSIN 0.4 MG CAP.SR.24H PO SCH (22:03)
--- NOTE | 2019-04-06 22:17 | NUR ---
MS/RN NOTES PT. 2200 SCHEDULED LANTUS MEDICATION NOT ADMINISTERED TO PT. PT. CURRENT BLOOD SUGAR IS 101 MG/DL. NO S/S OF HYPO/HYPERGLYCEMIA NOTED AT THIS TIME. WILL CONTINUE TO MONITOR.
[2019-04-07] MEDS: PIPERACILLIN /TAZOBACTAM 2.25 G in IV D5W 50 ML IV SCH (05:18)
[2019-04-07] MEDS: BLOOD SUGAR DIAGNOSTIC 1 EACH STRIP IN SCH ×2 (06:31→12:47)
--- NOTE | 2019-04-07 06:35 | NUR ---
MS/RN NIGHTS PT. IS LYING IN BED RESTING. BREATHING EVEN AND UNLABORED ON ROOM AIR. NO SOB, RESPIRATORY DISTRESS OR COMPLAINTS OF PAIN NOTED AT THIS TIME AND THROUGHOUT SHIFT. NO S/S OF HYPO/HYPERGLYCEMIA NOTED AT THIS TIME AND THROUGHOUT SHIFT. PT. WITH RIGHT HAND 22 GAUGE IV SALINE LOCK PRESENT, PATENT AND INTACT. PT. WITH LEFT CHEST WALL HD CATH PRESENT AND INTACT. ALL PT. NEEDS MET. PT. OFFLOADED, TURNED AND REPOSITIONED Q2H AND NEEDED. BED LOCKED AND IN LOWEST POSITION, SIDE RAILS UP X3, BED ALARM ON, CALL LIGHT WITHIN REACH, WILL ENDORSE TO DAYSHIFT NURSE FOR CONTINUITY OF CARE.
[2019-04-07 06:39] LABS: BASOPHILS % (AUTO) 0.9 % (0.0-2.0); EOSINOPHILS % (AUTO) 2.6 % (0.0-6.0); HEMATOCRIT 27 % (39-51); HEMOGLOBIN 8.9 g/dL (13.5-17.5); LYMPHOCYTES # (AUTO) 1.3 /CMM (0.8-4.8); LYMPHOCYTES % (AUTO) 28.8 % (20.0-44.0); MEAN CORPUSCULAR HGB CONC 33 g/dl (31.0-36.0); MEAN CORPUSCULAR VOLUME 90 fL (80-96); MONOCYTES # (AUTO) 0.7 /CMM (0.1-1.30); MONOCYTES % (AUTO) 16.2 % (2.0-12.0); NEUTROPHILS # (AUTO) 2.3 /CMM (1.8-8.9); NEUTROPHILS % (AUTO) 51.5 % (43.0-81.0); PLATELET COUNT (AUTO) 232 /CMM (150-450); RED BLOOD CELL COUNT(AUTO) 2.96 MIL/uL (4.5-6.0); WHITE BLOOD COUNT (AUTO) 4.5 K/uL (4.3-11.0)
[2019-04-07 06:41] LABS: CALCIUM, SERUM 8.3 mg/dL (8.5-10.1); CARBON DIOXIDE 20 mmol/L (21-32); CHLORIDE 96 mmol/L (98-107); GLUCOSE 87 mg/dL (74-106); POTASSIUM 4.5 mmol/L (3.5-5.1); SODIUM SERUM 132 mmol/L (136-145); UREA NITROGEN, BLOOD 68 mg/dL (7-18)
[2019-04-07 06:44] LABS: CREATININE 11.1 mg/dL (0.6-1.3)
--- NOTE | 2019-04-07 07:25 | NUR ---
M/S RN NOTES PATIENT RESTING IN BED. NO RESPIRATORY DISTRESS, NO C/O PAIN AT THIS TIME. PATIENT'S SKIN WARM TO TOUCH. IV SL ON THE RT HAND #22G, INTACT AND PATENT. PATIENT WITH LEFT CHEST WALL HD CATH, INTACT. PATIENT'S NEEDS ATTENDED. BED ON LOWEST LOCKED POSITION, CALL LIGHT WITHIN REACH. WILL CONTINUE TO MONITOR.
[2019-04-07 08:00] VITALS: BP 104/70
[2019-04-07] MEDS: LACTOBACILLUS RHAMNOSUS GG 1 EACH CAP.SPRINK PO SCH ×2 (08:53→13:54)
[2019-04-07] MEDS: ASPIRIN 81 MG TAB.CHEW PO SCH (08:54)
[2019-04-07] MEDS: ESCITALOPRAM OXALATE (10 MG) 10 MG TABLET PO SCH (08:54)
[2019-04-07] MEDS: VIT B CMPLX 3/FA/VIT C/BIOTIN 1 TAB TABLET PO SCH (08:54)
[2019-04-07] MEDS: DOCUSATE SODIUM 100 MG CAPSULE PO SCH (08:54)
[2019-04-07] MEDS: HEPARIN SODIUM, PORCINE 5000 UNITS/1 ML VIAL SQ SCH (08:55)
[2019-04-07] MEDS: METOPROLOL TARTRATE 50 MG TABLET PO SCH (09:00)
[2019-04-07] MEDS: NIFEdipine XL 60 MG TAB PO SCH (09:00)
[2019-04-07] MEDS: clonazePAM 0.5 MG TABLET PO SCH (09:00)
[2019-04-07] MEDS: ATORVASTATIN 10 MG TABLET PO SCH (09:00)
[2019-04-07] MEDS: LINAGLIPTIN 5 MG TABLET PO SCH (09:00)
--- NOTE | 2019-04-07 09:30 | NUR ---
M/S RN NOTES PATIENT GETTING DIALYSIS, MEDICATIONS NOT ADMINISTERED. BP 104/70, 69
[2019-04-07] MEDS: CLOTRIMAZOLE 1% 15 GM TUBE TP SCH (09:41)
[2019-04-07] MEDS ORDERED: CEFE1FRO IV (10:24)
[2019-04-07] MEDS ORDERED: CEFEPIME 1 GM VIAL IM SCH (10:30)
[2019-04-07] MEDS: INSULIN REGULAR, HUMAN 100 UNIT/ML 3 ML VIAL SQ PRN (12:54)
[2019-04-07] MEDS ORDERED: CEFEPIME 1 GM in IV D5W 50 ML IV SCH (13:00)
--- NOTE | 2019-04-07 14:30 | NUR ---
M/S RN NOTES PATIENT DISCHARGED IN STABLE CONDITION, VSS. PATIENT IN NO RESPIRATORY DISTRESS, NO C/O PAIN AT THIS TIME. PATIENT WITH IV SL ON THE RT HAND 22G, INTACT AND PATENT. PATIENT'S SKIN ASSESSED AND PHOTOS TAKEN AND PLACED IN CHART. PATIENT WITH NO BELONGINGS, LIST SIGNED. PATIENT'S NEEDS ATTENDED. REPORT GIVEN TO NADIA AT [facility]. PATIENT LEFT WITH PARAMEDICS VIA GURNEY.
== END 2019-04-07 14:20 | DRG 689 ==
LOC: ER 08:21 → MED 12:28
PROVIDERS: ADMIT Hospitalist; ATTEND Hospitalist
DX: N30.01 Acute cystitis with hematuria (principal); G93.41 Metabolic encephalopathy; N18.6 End stage renal disease; E44.0 Moderate protein-calorie malnutrition; R65.10 Systemic inflammatory response syndrome (SIRS) of non-infectious origin without acute organ dysfunction; I12.0 Hypertensive chronic kidney disease with stage 5 chronic kidney disease or end stage renal disease; E11.22 Type 2 diabetes mellitus with diabetic chronic kidney disease; Z99.2 Dependence on renal dialysis; Z87.440 Personal history of urinary (tract) infections; Z79.899 Other long term (current) drug therapy; Z79.82 Long term (current) use of aspirin; Z79.4 Long term (current) use of insulin; Z85.51 Personal history of malignant neoplasm of bladder; Z98.890 Other specified postprocedural states; Z79.84 Long term (current) use of oral hypoglycemic drugs; D63.1 Anemia in chronic kidney disease; E11.51 Type 2 diabetes mellitus with diabetic peripheral angiopathy without gangrene; S90.425A Blister (nonthermal), left lesser toe(s), initial encounter; X58.XXXA Exposure to other specified factors, initial encounter; Y92.9 Unspecified place or not applicable; L89.620 Pressure ulcer of left heel, unstageable; I67.2 Cerebral atherosclerosis; I70.0 Atherosclerosis of aorta
CPT/HCPCS: 36415; 70450-TC; 71045-TC; 80048-TC; 80061-TC; 80076-TC; 80305; 81000-TC; 82962-TC; 83735-TC; 84100-TC; 84484-TC; 85025-TC; 87040-TC; 87081-TC; 87086-TC; 87186-TC; 90935-TC; 97112-TC; 97530-TC; A4217; A4349; G0378; G0480; J0692; J0696; J1644; J1815; J2543; J2997; J3490; J7030; J7060

== ENCOUNTER 2019-10-02 10:24 | Inpatient (IN) | payer MEDICARE, OTHER ==
[2019-10-02] VITALS (33 sets, daily range): BP systolic 79–132; BP diastolic 21–75
[~2019-10-02] VITALS: Ht 185.4 cm; Wt 76.7 kg
[~2019-10-02 10:24] MED LIST changes: +ACET-2605 PO; +ACET-868 PO; +ASPI-1169 PO; +CEFE1FRO IV; -DIPH25CA49; +DOCU-141 PO; -DOCU-270; -FEXO-263 PO; +FOLI0.8T41 PO; +HYDR-4076 PO; +INSU100I26 SQ; +INSU100V3 SQ; +LACT1CAP94 PO; -LORA10CA PO; +MAGN400O6 PO; -SITA1TAB6 PO; +SITA50TA PO; -TELM1TAB2 PO; -TRIA1CAP2 PO; +VITA-339 PO; -[UNRECOGNIZED DRUG - OTHER]
[2019-10-02 10:53] LABS: BASOPHILS % (AUTO) 0.1 % (0.0-2.0); HEMATOCRIT 38 % (39-51); HEMOGLOBIN 12.3 g/dL (13.5-17.5); LYMPHOCYTES # (AUTO) 1.3 /CMM (0.8-4.8); LYMPHOCYTES % (AUTO) 3.8 % (20.0-44.0); MEAN CORPUSCULAR HGB CONC 32 g/dl (31.0-36.0); MEAN CORPUSCULAR VOLUME 97 fL (80-96); MONOCYTES % (AUTO) 6.2 % (2.0-12.0); NEUTROPHILS # (AUTO) 29.6 /CMM (1.8-8.9); NEUTROPHILS % (AUTO) 89.9 % (43.0-81.0); PLATELET COUNT (AUTO) 283 /CMM (150-450); RED BLOOD CELL COUNT(AUTO) 3.95 MIL/uL (4.5-6.0)
[2019-10-02 10:57] LABS: WHITE BLOOD COUNT (AUTO) 32.9 K/uL (4.3-11.0)
[2019-10-02] MEDS ORDERED: ACETAMINOPHEN 650 MG/SUPP.RECT RC ONE ×2 (10:58→11:00)
[2019-10-02] MEDS ORDERED: CEFTRIAXONE 1GM BAG (ER ONLY) 50 ML IV ONE ×2 (10:58→11:00)
[2019-10-02] MEDS ORDERED: IV NS 0.9% 1,000 ML BAG IV ONE ×2 (11:00→12:30)
--- NOTE | 2019-10-02 11:00 | NUR ---
patient LUAN from snf,came in due to altered with low 02sat. On rom air, breathing evenly and unlabored. connected to the monitor and pulse ox. kept comfortable, will continue to monitor accordingly.
[2019-10-02 11:01] LABS: CALCIUM, SERUM 9.8 mg/dL (8.5-10.1); CARBON DIOXIDE 21 mmol/L (21-32); CHLORIDE 99 mmol/L (98-107); GLUCOSE 196 mg/dL (74-106); SODIUM SERUM 136 mmol/L (136-145); UREA NITROGEN, BLOOD 71 mg/dL (7-18)
[2019-10-02 11:08] LABS: CREATININE 9.6 mg/dL (0.6-1.3)
--- NOTE | 2019-10-02 11:13 | NUR ---
icu 253
[2019-10-02 11:19] LABS: ALANINE AMINOTRANSFERASE 19 U/L (12-78); ALBUMIN 2.7 g/dL (3.4-5.0); ALKALINE PHOSPHATASE 99 U/L (46-116); ASPARTATE AMINOTRANSFERASE 17 U/L (15-37); BILIRUBIN,DIRECT 0.2 mg/dL (0.0-0.2); BILIRUBIN,TOTAL 0.7 mg/dL (0.2-1.0); TOTAL PROTEIN, SERUM 7.8 g/dL (6.4-8.2)
[2019-10-02 11:26] LABS: APPEARANCE,URINE HAZY (CLEAR); BILIRUBIN,URINE NEGATIVE (NEGATIVE); BLOOD, URINE 3+ Ery/uL (NEGATIVE); COLOR,URINE YELLOW (YELLOW); KETONES,URINE TRACE (NEGATIVE); PROTEIN,URINE 3+ mg/dl (NEGATIVE); UGLUCOSE NEGATIVE (NEGATIVE)
[2019-10-02 11:27] LABS: LEUKOCYTE ESTERASE ,URINE 3+ (NEGATIVE); NITRITE, URINE NEGATIVE (NEGATIVE); UROBILINOGEN,URINE 0.2 EU/dL (0.2)
[2019-10-02 11:30] LABS: BACTERIA,URINE Few /HPF (None Seen); MUCUS,URINE Few /LPF (None Seen); SQUAMOUS EPITHELIAL CELL,UR 0-2 /HPF (None Seen); URINE AMORPHOUS URATE Moderate /HPF (None Seen); WBC,URINE TOO NUMEROUS TO COUN /HPF (0-3)
[2019-10-02 11:33] LABS: BAND % (MANUAL) 8 % (0.0-5.0); LYMPHOCYTES % (MANUAL) 4 % (16-48); MONOCYTES % (MANUAL) 3 % (0-11.0); NEUTROPHILS % (MANUAL) 85 (42-76)
[2019-10-02] MEDS ORDERED: ALBU2.5V38 IH (11:40)
[2019-10-02] MEDS ORDERED: AMIN887L PO (11:40)
[2019-10-02] MEDS ORDERED: ARGI1POW13 PO (11:40)
[2019-10-02] MEDS ORDERED: ASCO500T20 PO (11:40)
[2019-10-02] MEDS ORDERED: GUAI100S11 PO (11:40)
--- NOTE | 2019-10-02 12:08 | NUR ---
report given to luna LUBIN RN for prosper.
--- NOTE | 2019-10-02 12:24 | NUR ---
YESENIA JONES Addendum: 10/02/19 at 1227 by SARINA VITO BOWER
--- NOTE | 2019-10-02 12:56 | NUR ---
CALLED VIP NEPHRO VITO BOWER
--- NOTE | 2019-10-02 13:30 | NUR ---
RN INITIAL NOTES RECEIVED PT FROM ER. ID AWAKE, A/OX1. ON ROOM AIR. NO RESPIRATORY DISTRESS NOTED. NO SOB NOTED. NO SIGNS OF PAIN NOTED. PT CONNECTED TO MONITOR. SKIN ASSESSMENT DONE. HOMERO TRENT NP AWARE OF ADMISSION. AWAITING FOR ADMISSION ORDERS. PT FOR PICC LINE INSERTION. WILL CLOSELY MONITOR
--- NOTE | 2019-10-02 13:36 | NUR ---
wheeled patient via gurney accompanied by RN and emt in no distress, RN at bedside to assume care.
[2019-10-02] MEDS ORDERED: NOREPINEPHRINE 8 MG in IV NS 0.9% 242 ML IV PRN (15:30)
[2019-10-02 16:18] LABS: C-REACTIVE PROTEIN 14.8 mg/dL (0.0-0.9)
[2019-10-02] MEDS ORDERED: IV NS 0.9% 250 ML IV PRN (16:30)
[2019-10-02] MEDS: CEFEPIME 1 GM in IV D5W 50 ML IV SCH (17:53)
[2019-10-02] MEDS: NOREPINEPHRINE 8 MG in IV NS 0.9% 242 ML IV PRN (18:18)
[2019-10-02] MEDS: METRONIDAZOLE 500MG/ NS 100ML 500 MG in PREMIX 1 EA IV SCH (18:34)
--- NOTE | 2019-10-02 18:39 | NUR ---
RN CLOSING NOTES PT REMAINS AWAKE, ORIENTED TO NAME. ON ROOM AIR. NO RESPIRATORY DISTRESS NOTED. NO SIGNS OF PAIN NOTED. PT STARTED ON LEVO 0.1MCG/KG/MIN. WILL TITRATE ACCORDINGLY. KEPT CLEAN AND DRY. REPOSITIONED. BLE ELEVATED. WILL ENDORSE FOR CONTINUITY OF CARE.
--- NOTE | 2019-10-02 19:45 | NUR ---
TWO NEEDLE MACHINE OPERATOR NOTES KATTY PICC PLACED BY NURSE MO, PATIENT TOLERATED PROCEDURE WELL. WILL MONITOR CLOSELY
--- NOTE | 2019-10-02 20:00 | NUR ---
PLASTIC DUPLICATOR NOTES HD NURSE AT BEDSIDE TO START HD TREATMENT, LATEST LAB VALUES RELAYED TO HD NURSE
[2019-10-02] MEDS ORDERED: DEXTROSE 50%-WATER 50 ML DISP.SYRIN IV PRN ×2 (21:30)
[2019-10-02] MEDS ORDERED: INSULIN REGULAR, HUMAN 100 UNIT/ML 3 ML VIAL SQ PRN (21:30)
[2019-10-02] MEDS: ATORVASTATIN 10 MG TABLET PO SCH (22:00)
[2019-10-02] MEDS ORDERED: BLOOD SUGAR DIAGNOSTIC 1 EACH STRIP IN SCH (22:00)
--- NOTE | 2019-10-02 23:00 | NUR ---
MEDICARE NURSE NOTES HD COMPLETED, TOLERATED WELL, 1 LITER REMOVED PER HD NURSE
[2019-10-02] MEDS: BLOOD SUGAR DIAGNOSTIC 1 EACH STRIP IN SCH (23:31)
[2019-10-03] VITALS (48 sets, daily range): BP systolic 83–169; BP diastolic 44–100
[2019-10-03] MEDS ORDERED: ACETAMINOPHEN 650 MG/SUPP.RECT RC PRN (00:30)
[2019-10-03] MEDS: METRONIDAZOLE 500MG/ NS 100ML 500 MG in PREMIX 1 EA IV SCH ×3 (02:15→17:26)
--- NOTE | 2019-10-03 04:00 | NUR ---
DUMP OPERATOR NOTES DURING BED BATH, PATIENT NOTED TO SWING ARMS, ATTEMPTING TO PUNCH STAFF. PRECAUTIONS TAKEN, ADDITIONAL NURSE AT BEDSIDE. WITH HELP, BED BATH SAFELY RENDERED, WILL MONITOR CLOSELY
--- NOTE | 2019-10-03 06:00 | NUR ---
EQUINE INTERNSHIP NOTES PATIENT RESTING IN BED, APPEARS COMFORTABLE. WILL ENDORSE THE PATIENT TO THE AM SHIFT NURSE FOR CONTINUITY OF CARE
[2019-10-03] MEDS: BLOOD SUGAR DIAGNOSTIC 1 EACH STRIP IN SCH ×4 (07:07→22:00)
[2019-10-03] MEDS: INSULIN REGULAR, HUMAN 100 UNIT/ML 3 ML VIAL SQ PRN ×2 (07:08→12:03)
--- NOTE | 2019-10-03 07:30 | NUR ---
RN OPENING NOTE PATIENT IS RESTING COMFORTABLY IN BED, NO ACUTE DISTRESS NOTED. ON ROOM AIR SATURATING WELL, BREATHING IS EVEN AND UNLABORED, NO SOB NOTED. ON TELE MONITOR, SR W/ 1ST DEGREE AV BLOCK NOTED, MD IS AWARE. PATIENT IS NPO, ON ISOLATION TO RULE OUT COVID. LEVOPHED RUNNING AT 0.1MCG, VITAL SIGNS ARE STABLE, PATIENT TOLERATING IT WELL. BP MAINTAINED AT ORDERED PARAMETER. PICC LINE INTACT, FLUSHED WELL, NO S/S OF INFECTION NOTED. SAFETY MAINTAINED, CALL LIGHT WITHIN REACH, WILL CONTINUE TO MONITOR CLOSELY.
[2019-10-03] MEDS: NOREPINEPHRINE 8 MG in IV NS 0.9% 242 ML IV PRN (07:45)
[2019-10-03] MEDS: LACTOBACILLUS RHAMNOSUS GG 1 EACH CAP.SPRINK PO SCH ×3 (09:00→17:26)
[2019-10-03] MEDS: DOCUSATE SODIUM 100 MG CAPSULE PO SCH ×2 (09:00→17:26)
[2019-10-03] MEDS: ASPIRIN 81 MG TAB.CHEW PO SCH (09:00)
[2019-10-03] MEDS: FOLIC ACID 1 MG TABLET PO SCH (09:00)
[2019-10-03] MEDS: ASCORBIC ACID 500 MG TABLET PO SCH (09:00)
[2019-10-03] MEDS: CEFEPIME 1 GM in IV D5W 50 ML IV SCH (16:41)
[2019-10-03] MEDS ORDERED: DEXTROSE 50%-WATER 50 ML DISP.SYRIN IV PRN (17:00)
[2019-10-03] MEDS ORDERED: INSULIN REGULAR, HUMAN 100 UNIT/ML 3 ML VIAL SQ PRN (17:00)
--- NOTE | 2019-10-03 19:36 | NUR ---
RN CLOSING NOTES PATIENT REMAINED IN STABLE CONDITION. NO CHANGES TO PATIENT CONDITION DURING MY SHIFT. ALL PATIENT NEEDS MET, ALL SCHEDULED MEDS GIVEN ON TIME. VITAL SIGNS ARE STABLE, CALL LIGHT WITHIN REACH, ENDORSED TO PM NURSE TO CONTINUE CARE.
[2019-10-03] MEDS: MUPIROCIN OINT 2% 22 GM TUBE SCH (21:02)
[2019-10-03] MEDS: ATORVASTATIN 10 MG TABLET PO SCH (21:13)
[2019-10-04] VITALS (47 sets, daily range): BP systolic 81–142; BP diastolic 43–87
[2019-10-04] MEDS: METRONIDAZOLE 500MG/ NS 100ML 500 MG in PREMIX 1 EA IV SCH ×3 (01:33→16:01)
[2019-10-04 05:04] LABS: BASOPHILS # (AUTO) 0.1 /CMM (0.0-0.2); BASOPHILS % (AUTO) 0.3 % (0.0-2.0); EOSINOPHILS % (AUTO) 0.1 % (0.0-6.0); HEMATOCRIT 34 % (39-51); LYMPHOCYTES # (AUTO) 2.2 /CMM (0.8-4.8); LYMPHOCYTES % (AUTO) 6.8 % (20.0-44.0); MEAN CORPUSCULAR HGB CONC 32 g/dl (31.0-36.0); MEAN CORPUSCULAR VOLUME 98 fL (80-96); MONOCYTES % (AUTO) 9.3 % (2.0-12.0); NEUTROPHILS # (AUTO) 27.2 /CMM (1.8-8.9); NEUTROPHILS % (AUTO) 83.5 % (43.0-81.0); PLATELET COUNT (AUTO) 287 /CMM (150-450); RED BLOOD CELL COUNT(AUTO) 3.52 MIL/uL (4.5-6.0)
[2019-10-04 05:08] LABS: CALCIUM, SERUM 8.9 mg/dL (8.5-10.1); CARBON DIOXIDE 22 mmol/L (21-32); CHLORIDE 101 mmol/L (98-107); GLUCOSE 119 mg/dL (74-106); POTASSIUM 4.6 mmol/L (3.5-5.1); SODIUM SERUM 138 mmol/L (136-145); UREA NITROGEN, BLOOD 76 mg/dL (7-18)
[2019-10-04 05:12] LABS: CREATININE 8.1 mg/dL (0.6-1.3)
[2019-10-04 05:40] LABS: WHITE BLOOD COUNT (AUTO) 32.6 K/uL (4.3-11.0)
[2019-10-04 05:48] LABS: LYMPHOCYTES % (MANUAL) 4 % (16-48); MONOCYTES % (MANUAL) 6 % (0-11.0); NEUTROPHILS % (MANUAL) 90 (42-76)
[2019-10-04] MEDS: NOREPINEPHRINE 8 MG in IV NS 0.9% 242 ML IV PRN (06:28)
--- NOTE | 2019-10-04 08:11 | NUR ---
WOUND CARE CONSULT: REVIEWED ADMISSION PHOTOS AND DOCUMENTATION WHICH SHOW HEEL AND FOOT WOUNDS AND SACRAL SCARRING, PRESENT ON ADMISSION. RECOMMEND DPM CONSULT. DR REYES NOTIFIED OF CONSULT REQUEST. RECOMMENDATIONS MADE FOR SKIN PROTECTION AND DISCUSSED WITH NURSING STAFF. DEFER TO DPM FOR LOWER EXTREMITIES. WILL SEE PRN. [facility] IN AGREEMENT WITH PLAN OF CARE.
[2019-10-04] MEDS: BLOOD SUGAR DIAGNOSTIC 1 EACH STRIP IN SCH ×4 (08:14→22:00)
--- NOTE | 2019-10-04 08:15 | NUR ---
RN OPENING NOTE PATIENT IS RESTING COMFORTABLY IN BED, NO ACUTE DISTRESS NOTED. ON ROOM AIR SATURATING WELL, BREATHING IS UNLABORED, NO SOB NOTED. ON TELE MONITOR, SR W/ 1ST DEGREE AV BLOCK NOTED, MD IS AWARE. PATIENT IS NPO, ON ISOLATION TO RULE OUT COVID. LEVOPHED RUNNING AT 0.1MCG, VITAL SIGNS ARE STABLE, PATIENT TOLERATING IT WELL. BP MAINTAINED AT ORDERED PARAMETER. PICC LINE INTACT, FLUSHED WELL, NO S/S OF INFECTION NOTED. SAFETY MAINTAINED, CALL LIGHT WITHIN REACH, WILL CONTINUE TO MONITOR CLOSELY ON HD ORDERED.
[2019-10-04] MEDS ORDERED: Z GUARD REMEDY 2 OZ OINT TP PRN (08:30)
[2019-10-04] MEDS: FOLIC ACID 1 MG TABLET PO SCH (09:00)
[2019-10-04] MEDS: ASCORBIC ACID 500 MG TABLET PO SCH (09:00)
[2019-10-04] MEDS: ASPIRIN 81 MG TAB.CHEW PO SCH (09:00)
[2019-10-04] MEDS: DOCUSATE SODIUM 100 MG CAPSULE PO SCH ×2 (09:00→16:04)
[2019-10-04] MEDS: LACTOBACILLUS RHAMNOSUS GG 1 EACH CAP.SPRINK PO SCH ×3 (09:00→16:04)
--- NOTE | 2019-10-04 09:18 | NUR ---
cardiothoracic icu rn note all meds hold for now patient on hd
[2019-10-04] MEDS: Z GUARD REMEDY 2 OZ OINT TP SCH (09:39)
[2019-10-04] MEDS: MUPIROCIN OINT 2% 22 GM TUBE SCH ×2 (09:40→21:03)
--- NOTE | 2019-10-04 13:00 | NUR ---
agriculture technician note hd competed, 2.6 l of fluids out
--- NOTE | 2019-10-04 14:41 | NUR ---
neonatal icu coordinator note negative per lab for covid , dr elliott infection disease notified
--- NOTE | 2019-10-04 15:08 | NUR ---
STUCCO APPLICATOR NOTE UNABLE TO REMOVE SOFT RESTRAIN ,STILL AT RISK TO REMOVE ALL LINES , WILL MONITOR
--- NOTE | 2019-10-04 16:33 | NUR ---
MUSIC PUBLICIST NOTE KEEP CLEAN DRY ,ABLE TO MAKE BM , ALL NEEDS ATTENDED, NOT IN DISTRESS, CONT ON LEVOPHED DRIP ORDERED BP 99/55
[2019-10-04] MEDS: CEFEPIME 1 GM in IV D5W 50 ML IV SCH (17:03)
--- NOTE | 2019-10-04 18:21 | NUR ---
PATIENT SUPPORT TECH NOTE CONT ON LEVOPHED DRIP ORDERED, ON RA, NO SOB NOTED AT THIS TIE, , BED IN LOWEST AND LOCKED POSITION , CALL LIGHT WITHIN REACH , CONT SOFT RESTRAIN ORDERED , WILL MONITOR
[2019-10-05] VITALS (81 sets, daily range): BP systolic 76–156; BP diastolic 41–86
[2019-10-05] MEDS: METRONIDAZOLE 500MG/ NS 100ML 500 MG in PREMIX 1 EA IV SCH ×2 (01:17→09:17)
--- NOTE | 2019-10-05 08:00 | NUR ---
SEISMOGRAPH CHIEF: pt.is confused, Senegalese speaker, uncooperative now, on wrists restraints/able to remove IVLs, reactive by name, rest now, no pain, no c/o, O2sat. over 94% on ra, SR, SBP over 90 now, Levophed gtt is off since 0500, continue monitoring, 3 BMs over night/hold laxatives, BG 77, PICC mo port is occluded, updated
[2019-10-05] MEDS: DOCUSATE SODIUM 100 MG CAPSULE PO SCH ×3 (09:00→17:00)
--- NOTE | 2019-10-05 09:00 | NUR ---
SCOURING MACHINE OPERATOR: saw pt/updated, no new order now
[2019-10-05] MEDS: BLOOD SUGAR DIAGNOSTIC 1 EACH STRIP IN SCH ×4 (09:16→21:38)
[2019-10-05] MEDS: MUPIROCIN OINT 2% 22 GM TUBE SCH ×2 (09:18→21:39)
[2019-10-05] MEDS: SILVER SULFADIAZINE 50 GM JAR TP SCH (09:18)
[2019-10-05] MEDS: Z GUARD REMEDY 2 OZ OINT TP SCH (09:19)
[2019-10-05] MEDS: ASCORBIC ACID 500 MG TABLET PO SCH (09:23)
[2019-10-05] MEDS: ASPIRIN 81 MG TAB.CHEW PO SCH (09:23)
[2019-10-05] MEDS: FOLIC ACID 1 MG TABLET PO SCH (09:23)
[2019-10-05] MEDS: LACTOBACILLUS RHAMNOSUS GG 1 EACH CAP.SPRINK PO SCH ×3 (09:23→16:07)
--- NOTE | 2019-10-05 09:30 | NUR ---
RESTAURANT MANAGING PARTNER: CHRISTIANO Gillespie updated with pt.current condition, VS, I/O, loose BMx3 over night report, pressor off, meds
--- NOTE | 2019-10-05 10:00 | NUR ---
ENGLISH AS A SECOND LANGUAGE TEACHER: pt is more awake, can follow simple commands, but uncooperative almost, SR, SBP over 90, O2sat. over 94%, no SOB, ST reevaluated/same swallow patent with same diet, DNP Floresita is in room/updated with all above, see new orders
--- NOTE | 2019-10-05 11:00 | NUR ---
MARSHMALLOW MAKER: Pt.family called/updated
[2019-10-05 11:18] LABS: BASOPHILS # (AUTO) 0.1 /CMM (0.0-0.2); BASOPHILS % (AUTO) 0.4 % (0.0-2.0); EOSINOPHILS % (AUTO) 0.3 % (0.0-6.0); HEMATOCRIT 32 % (39-51); HEMOGLOBIN 10.4 g/dL (13.5-17.5); LYMPHOCYTES # (AUTO) 1.4 /CMM (0.8-4.8); LYMPHOCYTES % (AUTO) 7.5 % (20.0-44.0); MEAN CORPUSCULAR HGB CONC 32 g/dl (31.0-36.0); MEAN CORPUSCULAR VOLUME 96 fL (80-96); MONOCYTES # (AUTO) 1.2 /CMM (0.1-1.30); MONOCYTES % (AUTO) 6.6 % (2.0-12.0); NEUTROPHILS # (AUTO) 15.5 /CMM (1.8-8.9); NEUTROPHILS % (AUTO) 85.2 % (43.0-81.0); PLATELET COUNT (AUTO) 267 /CMM (150-450); RED BLOOD CELL COUNT(AUTO) 3.36 MIL/uL (4.5-6.0); WHITE BLOOD COUNT (AUTO) 18.2 K/uL (4.3-11.0)
[2019-10-05 11:26] LABS: CALCIUM, SERUM 8.9 mg/dL (8.5-10.1); CARBON DIOXIDE 24 mmol/L (21-32); CHLORIDE 105 mmol/L (98-107); GLUCOSE 143 mg/dL (74-106); POTASSIUM 4.2 mmol/L (3.5-5.1); SODIUM SERUM 142 mmol/L (136-145); UREA NITROGEN, BLOOD 67 mg/dL (7-18)
[2019-10-05 11:29] LABS: CREATININE 7.7 mg/dL (0.6-1.3)
[2019-10-05 11:33] LABS: ALANINE AMINOTRANSFERASE 13 U/L (12-78); ALBUMIN 2.1 g/dL (3.4-5.0); ALKALINE PHOSPHATASE 75 U/L (46-116); ASPARTATE AMINOTRANSFERASE 10 U/L (15-37); BILIRUBIN,TOTAL 0.4 mg/dL (0.2-1.0); TOTAL PROTEIN, SERUM 6.5 g/dL (6.4-8.2)
--- NOTE | 2019-10-05 14:00 | NUR ---
CASINO PORTER: Levophed is off, SBP over 100
[2019-10-05] MEDS: CEFEPIME 1 GM in IV D5W 50 ML IV SCH (16:04)
--- NOTE | 2019-10-05 18:19 | NUR ---
CHILD NUTRITION MANAGER: pt is more awake, more cooperative, no pain, no c/o now, SR, SBP over 100, O2sat. over 94%, no SOB, one loose BM, all pm/skin care done well, tolerated well for diet/took 75% dinner, unable to change R.foot dressing/kicking/refused, plan: HD tomorrow, skin under restraints: intact/WNL
--- NOTE | 2019-10-05 19:00 | NUR ---
RN OPENING NOTES PATIENT IN BED RESTING COMFORTABLY, NO ACUTE DISTRESS NOTED. ON ROOM AIR SATURATING WELL, BREATHING IS UNLABORED, NO SOB NOTED. ON TELE MONITOR SR WITH HR 60'S WITH PVC'S. ON BILATERAL SOFT WRIST RESTRAINTS FOR PATIENT SAFETY. IV SITES FLUSHING AND INTACT, SALINE LOCKED. SAFETY MEASURES MAINTAINED; CALL LIGHT WITHIN REACH, SR UP X3, HOB ELEVATED. WILL CONTINUE TO MONITOR CLOSELY.
[2019-10-06] VITALS (51 sets, daily range): BP systolic 93–141; BP diastolic 49–83
--- NOTE | 2019-10-06 | NUR ---
RN NOTES FREQUENT ROUNDING DONE. PATIENT RESTING COMFORTABLY. VITALS STABLE. WILL CONT TO MONITOR.
[2019-10-06 05:11] LABS: BASOPHILS # (AUTO) 0.1 /CMM (0.0-0.2); BASOPHILS % (AUTO) 0.5 % (0.0-2.0); EOSINOPHILS % (AUTO) 0.8 % (0.0-6.0); HEMATOCRIT 35 % (39-51); HEMOGLOBIN 11.5 g/dL (13.5-17.5); LYMPHOCYTES # (AUTO) 2.1 /CMM (0.8-4.8); LYMPHOCYTES % (AUTO) 12.2 % (20.0-44.0); MEAN CORPUSCULAR HGB CONC 33 g/dl (31.0-36.0); MEAN CORPUSCULAR VOLUME 96 fL (80-96); MONOCYTES # (AUTO) 1.2 /CMM (0.1-1.30); MONOCYTES % (AUTO) 7.2 % (2.0-12.0); NEUTROPHILS # (AUTO) 13.8 /CMM (1.8-8.9); NEUTROPHILS % (AUTO) 79.3 % (43.0-81.0); PLATELET COUNT (AUTO) 292 /CMM (150-450); RED BLOOD CELL COUNT(AUTO) 3.66 MIL/uL (4.5-6.0); WHITE BLOOD COUNT (AUTO) 17.4 K/uL (4.3-11.0)
[2019-10-06 05:42] LABS: CALCIUM, SERUM 9.5 mg/dL (8.5-10.1); CARBON DIOXIDE 24 mmol/L (21-32); CHLORIDE 104 mmol/L (98-107); GLUCOSE 95 mg/dL (74-106); MAGNESIUM 2.8 mg/dL (1.8-2.4); PHOSPHORUS 6.1 mg/dL (2.5-4.9); POTASSIUM 4.7 mmol/L (3.5-5.1); SODIUM SERUM 142 mmol/L (136-145)
[2019-10-06 05:50] LABS: CREATININE 8.6 mg/dL (0.6-1.3); UREA NITROGEN, BLOOD 80 mg/dL (7-18)
--- NOTE | 2019-10-06 07:07 | NUR ---
RN CLOSING NOTES PATIENT IN BED RESTING COMFORTABLY, NO ACUTE DISTRESS NOTED. NO ACUTE CHANGES THROUGHOUT SHIFT. ON TELE MONITOR SR WITH HR 60'S WITH PVC'S, LOWEST HR 38 BUT NONSUSTAINED. ON BILATERAL SOFT WRIST RESTRAINTS FOR PATIENT SAFETY. IV SITES FLUSHING AND INTACT, SALINE LOCKED. REPOSITIONED Q2H. KEPT PT CLEAN, DRY, AND COMFORTABLE. SAFETY MEASURES MAINTAINED; CALL LIGHT WITHIN REACH, SR UP X3, HOB ELEVATED. ENDORSED TO AM RN FOR ROSIE.
[2019-10-06] MEDS: BLOOD SUGAR DIAGNOSTIC 1 EACH STRIP IN SCH ×4 (07:39→22:00)
[2019-10-06] MEDS: MUPIROCIN OINT 2% 22 GM TUBE SCH ×2 (07:42→22:02)
[2019-10-06] MEDS: SILVER SULFADIAZINE 50 GM JAR TP SCH (07:42)
[2019-10-06] MEDS: Z GUARD REMEDY 2 OZ OINT TP SCH (07:42)
--- NOTE | 2019-10-06 07:53 | NUR ---
STRIP MILL OPERATOR: pt.is awake, oriented to name, rest now, but uncooperative, able to remove PIVLs, tubes, kick, on wrists restraints, skin under restraints: intact, no redness, oriented for POC, no pain, no c/o now, SR now, ayden episodes over night by report, BP WNL now, pressor off, O2sat over 94% on RA, no SOB, plan: HD today
[2019-10-06] MEDS: FOLIC ACID 1 MG TABLET PO SCH (08:09)
[2019-10-06] MEDS: LACTOBACILLUS RHAMNOSUS GG 1 EACH CAP.SPRINK PO SCH ×3 (08:09→17:15)
[2019-10-06] MEDS: ASCORBIC ACID 500 MG TABLET PO SCH (08:09)
[2019-10-06] MEDS: DOCUSATE SODIUM 100 MG CAPSULE PO SCH ×2 (08:09→17:00)
[2019-10-06] MEDS: ASPIRIN 81 MG TAB.CHEW PO SCH (08:10)
--- NOTE | 2019-10-06 08:30 | NUR ---
RESEARCH COORDINATOR: is in room, updated with pt.current condition, VS, I/O, pressor off, said: ok to transfer after HD if BP is ok
--- NOTE | 2019-10-06 09:42 | NUR ---
QUALIFICATION ENGINEER HD nurse notified re pt.current status, VS, labs
--- NOTE | 2019-10-06 12:45 | NUR ---
WARP BLEACHING VAT TENDER: HD done, 600ml out, tolerated well
--- NOTE | 2019-10-06 15:02 | NUR ---
APPAREL MACHINERY INSTRUCTOR: sent fax request per misc order to [facility] lab
--- NOTE | 2019-10-06 17:11 | NUR ---
PRIZER HAND: pt. is awake, uncooperative, confused episodes, rest now, no pain, on wrists restraints, skin under restraints is intact, no edema, SR, SBP over 100, O2sat. over 94%, no SOB, all PM/skin/wounds care done, waiting transfer to [place]
[2019-10-06] MEDS: CEFEPIME 1 GM in IV D5W 50 ML IV SCH (17:15)
--- NOTE | 2019-10-06 18:36 | NUR ---
HEEL SEAT SANDER: pt is transferred to MS, full report given
--- NOTE | 2019-10-06 18:37 | NUR ---
MS RN NOTES Received Patient awake and resting in bed. A/O x 1 with episodes of confusion, Tajik speaking. VS stable with no acute distress. Breathing even and unlabored on room air with no respiratory distress. Denies pain. No signs and symptoms of pain. KATTY PICC line clean, intact, patent and flushing well. 18g PIV on LAC clean, intact, patent and flushing well. LCW Permacath in place. Bilateral wrist restraints in place with skin warm and intact. Isolation precautions in place. Safety precautions in place. Bed locked and set to lowest position with side rails x 3 up. All needs rendered at this time. Call light within reach. Will continue to monitor.
--- NOTE | 2019-10-06 19:46 | NUR ---
MS RN CLOSING NOTES Patient awake and resting in bed. A/O x 1 with episodes of confusion, Palauan speaking. VS stable with no acute distress. Breathing even and unlabored on room air with no respiratory distress. Denies pain. No signs and symptoms of pain. KATTY PICC line clean, intact, patent and flushing well. 18g PIV on LAC clean, intact, patent and flushing well. LCW Permacath in place. Bilateral wrist restraints in place with skin warm and intact. Isolation precautions in place. Safety precautions in place. Bed locked and set to lowest position with side rails x 3 up. All needs rendered at this time. Call light within reach. Will endorse plan of care to oncoming shift.
--- NOTE | 2019-10-06 22:03 | NUR ---
BLOOD SUGAR FINGERSTICK= 92, NO INSULIN GIVEN TONIGHT. CALL LIGHT WITHIN REACH. BED ALARM ON AND BED IN LOWEST AND LOCKED POSITION.NO COMPLAIN OF PAIN. NO SOB NOTED. WITH BILATERAL WRIST RESTRAINTS, CHECKED SKIN AND CIRCULATION OF THE HANDS AND ARM ARE WNL. HOB ELEVATED AT 30 DEGREES AT ALL TIMES. PATIENT IS A LITTLE COMBATIVE.
--- NOTE | 2019-10-07 05:31 | NUR ---
RN CLOSING NOTES: PATIENT IN BED, ASLEEP. NO SOB NOTED. NO COMPLAIN OF PAIN. A/O X2 WIT PERIODS OF CONFUSION, COMBATIVE. HOB ELEVATED AT ALL TIMES. WITH SOFT WRIST RESTRAINTS, WITH SKIN AND CIRCULATIONS ARE WNL, NO SKIN BREAKDOWN. CALL LIGHT WITHIN REACH. BED ALARM ON. BED IN LOWEST AND LOCKED POSITION.
[2019-10-07 06:04] LABS: BASOPHILS # (AUTO) 0.1 /CMM (0.0-0.2); BASOPHILS % (AUTO) 0.5 % (0.0-2.0); EOSINOPHILS % (AUTO) 0.8 % (0.0-6.0); HEMATOCRIT 34 % (39-51); LYMPHOCYTES # (AUTO) 2.7 /CMM (0.8-4.8); LYMPHOCYTES % (AUTO) 17.5 % (20.0-44.0); MEAN CORPUSCULAR HGB CONC 32 g/dl (31.0-36.0); MEAN CORPUSCULAR VOLUME 96 fL (80-96); MONOCYTES # (AUTO) 1.9 /CMM (0.1-1.30); MONOCYTES % (AUTO) 11.9 % (2.0-12.0); NEUTROPHILS # (AUTO) 10.9 /CMM (1.8-8.9); NEUTROPHILS % (AUTO) 69.3 % (43.0-81.0); PLATELET COUNT (AUTO) 273 /CMM (150-450); RED BLOOD CELL COUNT(AUTO) 3.57 MIL/uL (4.5-6.0); WHITE BLOOD COUNT (AUTO) 15.7 K/uL (4.3-11.0)
[2019-10-07 06:34] LABS: CALCIUM, SERUM 9.1 mg/dL (8.5-10.1); CARBON DIOXIDE 27 mmol/L (21-32); CHLORIDE 103 mmol/L (98-107); CREATININE 6.4 mg/dL (0.6-1.3); GLUCOSE 93 mg/dL (74-106); MAGNESIUM 2.3 mg/dL (1.8-2.4); PHOSPHORUS 3.8 mg/dL (2.5-4.9); POTASSIUM 4.2 mmol/L (3.5-5.1); SODIUM SERUM 140 mmol/L (136-145); UREA NITROGEN, BLOOD 47 mg/dL (7-18)
[2019-10-07] MEDS: BLOOD SUGAR DIAGNOSTIC 1 EACH STRIP IN SCH ×4 (06:42→21:43)
--- NOTE | 2019-10-07 06:43 | NUR ---
blood sugar fingerstick= 81, no insulin given. IV ON THE LEFT AC REMOVED,TIP IS INTACT, NO BLEEDING NOTED.
--- NOTE | 2019-10-07 07:30 | NUR ---
MS/RN Opening note Received patient in bed, sleeping. Does no appears pain or discomfort. Skin is warm to touch, kept clean/dry, intact picc line site. Respiratory even and unlabored in room air, no sob or distress observed. Keep remain lower position of the bed with elevated HOB. Call light within reach, will continue to monitor.
[2019-10-07 08:00] VITALS: BP 116/79
[2019-10-07] MEDS: FOLIC ACID 1 MG TABLET PO SCH ×2 (08:16→09:00)
[2019-10-07] MEDS: DOCUSATE SODIUM 100 MG CAPSULE PO SCH ×2 (08:16→17:23)
[2019-10-07] MEDS: ASCORBIC ACID 500 MG TABLET PO SCH ×2 (08:16→09:00)
[2019-10-07] MEDS: ASPIRIN 81 MG TAB.CHEW PO SCH ×2 (08:16→09:00)
[2019-10-07] MEDS: LACTOBACILLUS RHAMNOSUS GG 1 EACH CAP.SPRINK PO SCH ×3 (08:16→17:23)
[2019-10-07] MEDS: SILVER SULFADIAZINE 50 GM JAR TP SCH (08:17)
[2019-10-07] MEDS: MUPIROCIN OINT 2% 22 GM TUBE SCH ×2 (08:19→21:43)
[2019-10-07] MEDS: Z GUARD REMEDY 2 OZ OINT TP SCH (08:19)
[2019-10-07 16:00] VITALS: BP 124/74
[2019-10-07] MEDS: CEFEPIME 1 GM in IV D5W 50 ML IV SCH (17:12)
--- NOTE | 2019-10-07 18:20 | NUR ---
MS/RN Closing note Patient in bed comfortably, AO x 1-2, noticed confused and combative behavior. Refused morning and after noon medications. Skin is warm to touch, kept clean/dry, intact piccline site permacath on left cw. Respiratory even and unlabored in room air, no sob or distress observed, Kept lower position of the bed with locked wheel. Call light within reach, will endorse casino shift manager.
--- NOTE | 2019-10-07 19:33 | NUR ---
MS RN OPENING NOTES PATIENT RECEIVED RESTING IN BED A/O X2, MOSTLY LAO SPEAKING. STABLE ON RA WITH BREATHING EVEN AND UNLABORED, NO SOB NOTED. NO SIGNS OF ACUTE DISTRESS. NO COMPLAINTS OF PAIN OR DISCOMFORT. PATIENT ON BILATERAL SOFT WRIST RESTRAINTS WITH NO SKIN REDNESS, PULSE PRESENT, TWO FINGER SPACE LOOSE. RIGHT UA PICCLINE IN PLACE AND NOTED AND L CHEST PERMACATH. SAFETY PRECAUTIONS IN PLACE WITH BED IN LOWEST POSITION, CALL LIGHT WITHIN REACH, BREAKS ON. SIDE RAILS UP. WILL CONTINUE TO MONITOR THROUGHOUT THE SHIFT.
[2019-10-07 19:53] VITALS: BP 131/82
[2019-10-07 20:00] VITALS: BP 131/82
--- NOTE | 2019-10-08 06:50 | NUR ---
MS RN NOTES PATIENT BLOOD SUGAR AT 60. TRIED GIVING APPLE JUICE PO BUT PATIENT REFUSED BEING AGITATED AND COMBATIVE. ADMINISTERED DEXTROSE PRN INSTEAD. WILL CONTINUE TO MONITOR.
--- NOTE | 2019-10-08 07:16 | NUR ---
MS RN CLOSING NOTES PATIENT RESTING IN BED A/O X2, MOSTLY AUSTRIAN SPEAKING. STABLE ON RA WITH BREATHING EVEN AND UNLABORED, NO SOB NOTED. NO SIGNS OF ACUTE DISTRESS. NO COMPLAINTS OF PAIN OR DISCOMFORT. PATIENT ON BILATERAL SOFT WRIST RESTRAINTS WITH NO SKIN REDNESS, PULSE PRESENT, TWO FINGER SPACE LOOSE. RIGHT UA PICCLINE IN PLACE AND NOTED AND L CHEST PERMACATH. SAFETY PRECAUTIONS IN PLACE WITH BED IN LOWEST POSITION, CALL LIGHT WITHIN REACH, BREAKS ON. SIDE RAILS UP. PATIENT WAS KEPT CLEAN AND DRY THROUGHOUT THE NIGHT. BLOOD SUGAR LEVELS LOW AT 60, IV DEXTROSE GIVEN. WILL ENDORSE TO ONCOMING SHIFT ABOUT ROSIE.
--- NOTE | 2019-10-08 07:22 | NUR ---
MS RN NOTES BLOOD SUGAR RECHECKED AND IT INCREASED TO 143. PATIENT AWAKE. ENDORSED TO ONCOMING SHIFT.
[2019-10-08] MEDS: BLOOD SUGAR DIAGNOSTIC 1 EACH STRIP IN SCH ×4 (07:30→21:35)
[2019-10-08 07:34] LABS: CALCIUM, SERUM 9.2 mg/dL (8.5-10.1); CARBON DIOXIDE 23 mmol/L (21-32); CHLORIDE 102 mmol/L (98-107); GLUCOSE 212 mg/dL (74-106); POTASSIUM 4.2 mmol/L (3.5-5.1); SODIUM SERUM 139 mmol/L (136-145); UREA NITROGEN, BLOOD 58 mg/dL (7-18)
[2019-10-08 07:40] LABS: BASOPHILS # (AUTO) 0.1 /CMM (0.0-0.2); BASOPHILS % (AUTO) 0.7 % (0.0-2.0); EOSINOPHILS % (AUTO) 1.8 % (0.0-6.0); HEMATOCRIT 35 % (39-51); HEMOGLOBIN 11.4 g/dL (13.5-17.5); LYMPHOCYTES # (AUTO) 2.3 /CMM (0.8-4.8); LYMPHOCYTES % (AUTO) 20.2 % (20.0-44.0); MEAN CORPUSCULAR HGB CONC 32 g/dl (31.0-36.0); MEAN CORPUSCULAR VOLUME 96 fL (80-96); MONOCYTES # (AUTO) 1.4 /CMM (0.1-1.30); MONOCYTES % (AUTO) 11.8 % (2.0-12.0); NEUTROPHILS # (AUTO) 7.6 /CMM (1.8-8.9); NEUTROPHILS % (AUTO) 65.5 % (43.0-81.0); PLATELET COUNT (AUTO) 285 /CMM (150-450); RED BLOOD CELL COUNT(AUTO) 3.67 MIL/uL (4.5-6.0); WHITE BLOOD COUNT (AUTO) 11.6 K/uL (4.3-11.0)
[2019-10-08 07:52] LABS: CREATININE 7.8 mg/dL (0.6-1.3)
[2019-10-08 08:00] VITALS: BP 129/76
--- NOTE | 2019-10-08 08:00 | NUR ---
MS RN OPENING NOTE RECEIVED PT IN BED A/O X2, MOSTLY CITIZEN OF [place] SPEAKING. NO CARDIAC OR RESP DISTRESS NOTED SATURATING WELL ON ROOM AIR. BREATHING EVEN AND UNLABORED, NO SOB NOTED. NO SIGNS OF ACUTE DISTRESS. PATIENT ON BILATERAL SOFT WRIST RESTRAINTS WITH NO SKIN REDNESS, PULSE PRESENT, TWO FINGER SPACE LOOSE. NO S/S OF SKIN BREAKDOWN NOTED WITH GOOD CAPILLARY REFILL. R UPPER ARM PICC LINE IN PLACE. INTACT PATENT AND FLUSHING WELL. AND NOTED AND L CHEST PERMACATH FOR DIALYSIS. NO S/S OF INFECTION OR BLEEDING NOTED. SAFETY PRECAUTIONS IN PLACE WITH BED IN LOWEST POSITION, CALL LIGHT WITHIN REACH, BREAKS ON. SIDE RAILS UP. WILL CONT TO MONITOR.
--- NOTE | 2019-10-08 08:15 | NUR ---
CREATININE LEVELS DR. HINOJOSA NOTIFIED REGARDING CREATININE LEVELS OF 7.8. APPEARS TO BE TRENDING DOWN. PT IS A DIALYSIS PT. IS AWARE.
[2019-10-08] MEDS: Z GUARD REMEDY 2 OZ OINT TP SCH (08:42)
[2019-10-08] MEDS: FOLIC ACID 1 MG TABLET PO SCH (08:42)
[2019-10-08] MEDS: DOCUSATE SODIUM 100 MG CAPSULE PO SCH ×2 (08:42→17:03)
[2019-10-08] MEDS: ASPIRIN 81 MG TAB.CHEW PO SCH (08:42)
[2019-10-08] MEDS: LACTOBACILLUS RHAMNOSUS GG 1 EACH CAP.SPRINK PO SCH ×3 (08:42→17:03)
[2019-10-08] MEDS: SILVER SULFADIAZINE 50 GM JAR TP SCH (08:42)
[2019-10-08] MEDS: ASCORBIC ACID 500 MG TABLET PO SCH (08:42)
[2019-10-08] MEDS: MUPIROCIN OINT 2% 22 GM TUBE SCH ×2 (08:43→21:35)
[2019-10-08 16:00] VITALS: BP 138/82
[2019-10-08] MEDS: CEFEPIME 1 GM in IV D5W 50 ML IV SCH (17:03)
--- NOTE | 2019-10-08 18:00 | NUR ---
DIALYSIS DIALYSIS NURSE CURRENTLY IN PTS ROOM. PT CURRENTLY GETTING DIALYZED.
--- NOTE | 2019-10-08 18:23 | NUR ---
MS RN CLOSING NOTES PT IN BED A/O X2, MOSTLY LIBERIAN SPEAKING. NO CARDIAC OR RESP DISTRESS NOTED SATURATING WELL ON ROOM AIR. BREATHING EVEN AND UNLABORED, NO SOB NOTED. NO SIGNS OF ACUTE DISTRESS. PATIENT ON BILATERAL SOFT WRIST RESTRAINTS WITH NO SKIN REDNESS, PULSE PRESENT. NO S/S OF SKIN BREAKDOWN NOTED WITH GOOD CAPILLARY REFILL. R UPPER ARM PICC LINE IN PLACE. INTACT PATENT AND FLUSHING WELL. AND NOTED AND L CHEST PERMACATH FOR DIALYSIS. NO S/S OF INFECTION OR BLEEDING NOTED. DIALYSIS STILL ONGOING, WITH DIALYSIS NURSE BY BEDSIDE. SAFETY PRECAUTIONS IN PLACE WITH BED IN LOWEST POSITION, CALL LIGHT WITHIN REACH, BREAKS ON. SIDE RAILS UP. WILL ENDORSE TO NEXT SHIFT.
--- NOTE | 2019-10-08 19:47 | NUR ---
MS RN OPENING NOTES RECEIVED PT IN BED A/O X2, MOSTLY LITHUANIAN SPEAKING. NO CARDIAC OR RESP DISTRESS NOTED SATURATING WELL ON ROOM AIR. BREATHING EVEN AND UNLABORED, NO SOB NOTED. NO SIGNS OF ACUTE DISTRESS. PATIENT ON BILATERAL SOFT WRIST RESTRAINTS WITH NO SKIN REDNESS, PULSE PRESENT, TWO FINGER SPACE LOOSE. NO S/S OF SKIN BREAKDOWN NOTED WITH GOOD CAPILLARY REFILL. R UPPER ARM PICC LINE IN PLACE. INTACT PATENT AND FLUSHING WELL. AND NOTED AND L CHEST PERMACATH FOR DIALYSIS.PATIENT CURRENTLY GETTING DIALYSIS. SAFETY PRECAUTIONS IN PLACE WITH BED IN LOWEST POSITION, CALL LIGHT WITHIN REACH, BREAKS ON. SIDE RAILS UP. WILL CONT TO MONITOR THROUGHOUT THE NIGHT.
--- NOTE | 2019-10-08 20:33 | NUR ---
MS RN NOTES PATIENT FINISHED WITH DIALYSIS, 1L REMOVED. VITALS STABLE. WILL CONTINUE TO MONITOR.
[2019-10-09] MEDS: BLOOD SUGAR DIAGNOSTIC 1 EACH STRIP IN SCH ×4 (06:31→21:02)
[2019-10-09 06:53] LABS: BASOPHILS # (AUTO) 0.1 /CMM (0.0-0.2); BASOPHILS % (AUTO) 0.6 % (0.0-2.0); EOSINOPHILS % (AUTO) 1.9 % (0.0-6.0); HEMATOCRIT 36 % (39-51); HEMOGLOBIN 11.8 g/dL (13.5-17.5); LYMPHOCYTES % (AUTO) 19.9 % (20.0-44.0); MEAN CORPUSCULAR HGB CONC 33 g/dl (31.0-36.0); MEAN CORPUSCULAR VOLUME 95 fL (80-96); MONOCYTES # (AUTO) 1.7 /CMM (0.1-1.30); MONOCYTES % (AUTO) 11.3 % (2.0-12.0); NEUTROPHILS % (AUTO) 66.3 % (43.0-81.0); PLATELET COUNT (AUTO) 256 /CMM (150-450); RED BLOOD CELL COUNT(AUTO) 3.82 MIL/uL (4.5-6.0); WHITE BLOOD COUNT (AUTO) 15.1 K/uL (4.3-11.0)
--- NOTE | 2019-10-09 07:04 | NUR ---
MS RN CLOSING NOTES PATIENT CURRENTLY RESTING IN BED A/O X 1 MOSTLY BENINESE SPEAKING. ON 2L OF O2 WITH BREATHING EVEN AND UNLABORED, NO SOB NOTED. NO SIGNS OF ACUTE DISTRESS. NO COMPLAINTS OF PAIN OR DISCOMFORT AT THE MOMENT- NO FACIAL GRIMACING NOTES. KATTY MIDLINE AND L CHEST PORTACATH PATENT AND INTACT. SAFETY PRECAUITONS IN PLACE WITH BED IN LOWEST POSITION, CALL LIGHT WITHIN REACH, BREAKS ON, SIDE RAILS UP. ALL NEEDS ATTENDED TO. PATIENT KEPT CLEAN AND DRY THROUGHOUT THE NIGHT. WILL ENDORSE TO ONCOMING SHIFT ABOUT ROSIE,.
[2019-10-09 07:26] LABS: CALCIUM, SERUM 9.1 mg/dL (8.5-10.1); CARBON DIOXIDE 25 mmol/L (21-32); CHLORIDE 99 mmol/L (98-107); CREATININE 6.8 mg/dL (0.6-1.3); GLUCOSE 90 mg/dL (74-106); POTASSIUM 4.1 mmol/L (3.5-5.1); SODIUM SERUM 135 mmol/L (136-145); UREA NITROGEN, BLOOD 42 mg/dL (7-18)
[2019-10-09 08:00] VITALS: BP 123/64
--- NOTE | 2019-10-09 08:00 | NUR ---
MS RN OPENING NOTES RECEIVED PT IN BED A/O X2, JAPANESE SPEAKING. NO CARDIAC OR RESP DISTRESS NOTED SATURATING WELL ON ROOM AIR. BREATHING EVEN AND UNLABORED, NO SOB NOTED. IV ACCESS NOTED ON R UPPER ARM PICC LINE IN PLACE. INTACT PATENT AND FLUSHING WELL. AND NOTED AND L CHEST PERMACATH FOR DIALYSIS.PPER REPORT, PT RECEIVED DIALYSIS YESTERDAY. SAFETY PRECAUTIONS IN PLACE WITH BED IN LOWEST POSITION, CALL LIGHT WITHIN REACH, BREAKS ON. SIDE RAILS UP. WILL CONT TO MONITOR.
[2019-10-09] MEDS: DOCUSATE SODIUM 100 MG CAPSULE PO SCH ×2 (08:25→16:05)
[2019-10-09] MEDS: ASCORBIC ACID 500 MG TABLET PO SCH (08:25)
[2019-10-09] MEDS: FOLIC ACID 1 MG TABLET PO SCH (08:25)
[2019-10-09] MEDS: LACTOBACILLUS RHAMNOSUS GG 1 EACH CAP.SPRINK PO SCH ×3 (08:25→16:05)
[2019-10-09] MEDS: ASPIRIN 81 MG TAB.CHEW PO SCH (08:25)
[2019-10-09] MEDS: SILVER SULFADIAZINE 50 GM JAR TP SCH (08:41)
[2019-10-09] MEDS: MUPIROCIN OINT 2% 22 GM TUBE SCH ×2 (08:41→21:00)
[2019-10-09] MEDS: Z GUARD REMEDY 2 OZ OINT TP SCH (08:42)
[2019-10-09 10:32] LABS: BAND % (MANUAL) 5 % (0.0-5.0); LYMPHOCYTES % (MANUAL) 27 % (16-48); METAMYELOCYTES % 1 % (0-0); MONOCYTES % (MANUAL) 11 % (0-11.0); MYELOCYTES % 1 % (0-0); NEUTROPHILS % (MANUAL) 55 (42-76)
--- NOTE | 2019-10-09 10:45 | NUR ---
WOUND TX WOUND TX DONE AND COMPLETED TO BLE DIABETIC ULCERS AND SACRAL AREA. TOLERATED WELL. NO C/O PAIN OR DISCOMFORT DURING WOUND TX. KEPT PT CLEAN AND COMFORTABLE. ALL NEEDS MET AND ATTENDED.
--- NOTE | 2019-10-09 11:30 | NUR ---
PROCALCITONIN LEVELS AND WBC COUNT GERBER COLE MADE AWARE OF PROCALCITONIN LEVEL OF 10.26 AND WHITE COUNT OF 15.1, ELEVATION OBSERVED FROM PREVIOUS VALUES YESTERDAY.
--- NOTE | 2019-10-09 13:42 | NUR ---
PROCALCITONIN LEVELS AND WBC COUNT JUDEEN AUTO ADJUDICATION SPECIALIST FROM INFECTIOUS DISEASE MADE AWARE OF PROCALCITONIN LEVEL OF 10.26 AND WHITE COUNT OF 15.1, ELEVATION OBSERVED FROM PREVIOUS VALUES YESTERDAY. JUDEEN CURRENTLY MAKING ROUNDS IN THE UNIT.
--- NOTE | 2019-10-09 13:45 | NUR ---
ROUNDS PT IS AFEBRILE, TEMP AT 97.8, P- 78, RR, 18, BP- 114/79, O2 SAT 98% ON ROOM AIR. PT SLEEPING AND RESTING COMFORTABLY IN BED. CALM AND COOPERATIVE WITH MEDS AND TX.
[2019-10-09] MEDS: PROSOURCE / PROSTAT (PYXIS) 30 ML UDC GT SCH ×2 (14:53→16:06)
[2019-10-09 16:00] VITALS: BP 104/59
[2019-10-09] MEDS: CEFEPIME 1 GM in IV D5W 50 ML IV SCH (16:06)
--- NOTE | 2019-10-09 18:26 | NUR ---
MS RN CLOSING NOTES PT IN BED A/O X2, IRISH SPEAKING. NO CARDIAC OR RESP DISTRESS NOTED SATURATING WELL ON ROOM AIR. BREATHING EVEN AND UNLABORED, NO SOB NOTED. NO SIGNS OF ACUTE DISTRESS. PATIENT PT WAS CALM THROUGHOUOT THE SHIFT. R UPPER ARM PICC LINE IN PLACE. INTACT PATENT AND FLUSHING WELL. AND NOTED AND L CHEST PERMACATH FOR DIALYSIS. NO S/S OF INFECTION OR BLEEDING NOTED. SAFETY PRECAUTIONS IN PLACE WITH BED IN LOWEST POSITION, CALL LIGHT WITHIN REACH, BREAKS ON. SIDE RAILS UP. KEPT PT CLEAN, DRY AND COMFORTABLE. WILL ENDORSE TO NEXT SHIFT.
--- NOTE | 2019-10-09 19:38 | NUR ---
MS RN OPENING NOTES PATIENT RESTING IN BED COMFORTABLY; A/OX1 ESTONIAN SPEAKING; BREATHING EVEN AND UNLABORED; NO SOB OR S/S OF ACUTE RESPIRATORY DISTRESS NOTED AT THIS TIME; PATIENT TOLERATING ROOM AIR WELL; KATTY PICC LINE INTACT AND PATENT; FLUSHING WELL, NO S/S OF REDNESS OR INFILTRATION NOTED; L CHEST PORTACATH IN PLACE; ISOLATION PRECAUTIONS MAINTAINED; BED LOCKED IN LOWEST POSITION; SIDE RAILS X2; CALL LIGHT WITHIN REACH; WILL CONTINUE TO MONITOR
[2019-10-09 20:01] VITALS: BP 120/64
[2019-10-09 20:07] VITALS: BP 120/64
--- NOTE | 2019-10-09 21:03 | NUR ---
MS RN NOTES PATIENT REFUSING MEDICATION; NON-ADMINISTERED; PATIENT EDUCATED ON RISK AND BENEFITS; PATIENT STILL REFUSED. WILL CONTINUE TO MONITOR
--- NOTE | 2019-10-09 23:00 | NUR ---
MS RN NOTES PATIENT REFUSING TO BE CHANGED; PATIENT CONFUSED, A/OX1; AUSTRALIAN SPEAKING ONLY; WILL RE-ASSESS AND CONTINUE TO MONITOR
--- NOTE | 2019-10-10 01:35 | NUR ---
MS RN NOTES PATIENT STILL REFUSING TO BE CHANGED; PATIENT CONFUSED, A/OX1 UGANDAN SPEAKING; WILL RE-ASSESS AND CONTINUE TO MONITOR
--- NOTE | 2019-10-10 06:21 | NUR ---
MS RN NOTES PATIENT ASLEEP IN BED COMFORTABLY; BREATHING EVEN AND UNLABORED; NO SOB NOTED; NO S/S OF ACUTE RESPIRATORY DISTRESS NOTED; PATIENT CONFUSED, A/OX1, BAHRAINI SPEAKING; RETAIL PLANNERIda LEMUS, REPORTED THAT PATIENT WAS ANGRY WHEN HE WENT TO CHECK ON PATIENT TO BE CHANGED; PATIENT MOTIONED FOR RETAIL PLANNER TO LEAVE; PATIENT ALSO REFUSING ACCU CHECK; RISK AND BENEFITS EXPLAINED; PATIENT STILL REFUSED; WILL ENDORSE TO ONCOMING SHIFT; KATTY PICC LINE AND L CHEST PORTACATH INTACT; NS RUNNING KVO; ALL NEEDS RENDERED; SAFETY PRECAUTIONS IN PLACE; BED LOCKED IN LOW POSITION; SIDE RAILS X2; CALL LIGHT WITHIN REACH; WILL ENDORSE ROSIE TO ONCOMING NURSE
--- NOTE | 2019-10-10 06:34 | NUR ---
MS RN NOTES DONOR FLOOR TECHNICIAN AT BEDSIDE; PATIENT REFUSING LAB DRAW; DONOR FLOOR TECHNICIAN WILL TRY AGAIN LATER; WILL INFORM ONCOMING SHIFT
--- NOTE | 2019-10-10 07:00 | NUR ---
MS RN NOTES PATIENT AGREED TO HAVE LABS DRAWN
[2019-10-10 07:21] LABS: BASOPHILS # (AUTO) 0.1 /CMM (0.0-0.2); EOSINOPHILS % (AUTO) 2.5 % (0.0-6.0); HEMATOCRIT 35 % (39-51); HEMOGLOBIN 11.4 g/dL (13.5-17.5); LYMPHOCYTES # (AUTO) 2.9 /CMM (0.8-4.8); MEAN CORPUSCULAR HGB CONC 32 g/dl (31.0-36.0); MEAN CORPUSCULAR VOLUME 97 fL (80-96); MONOCYTES # (AUTO) 1.3 /CMM (0.1-1.30); MONOCYTES % (AUTO) 10.6 % (2.0-12.0); NEUTROPHILS # (AUTO) 7.9 /CMM (1.8-8.9); NEUTROPHILS % (AUTO) 62.9 % (43.0-81.0); PLATELET COUNT (AUTO) 218 /CMM (150-450); RED BLOOD CELL COUNT(AUTO) 3.65 MIL/uL (4.5-6.0); WHITE BLOOD COUNT (AUTO) 12.6 K/uL (4.3-11.0)
--- NOTE | 2019-10-10 07:36 | NUR ---
RN OPENING NOTE Patient is resting in bed, A/O x2, uncooperative at times. Per power and recovery shift engineer RN, patient is refusing to be cleaned, refusing medications and refusing blood sugar checks and insulin. KATTY Picc line noted is clean and intact. MARIO portacath noted. Bed is in lowest position, side rails x3 in upright position, call light is within reach, fall, safety and aspiration precautions enforced. Will continue with plan of care.
[2019-10-10 07:39] LABS: CALCIUM, SERUM 9.2 mg/dL (8.5-10.1); CARBON DIOXIDE 22 mmol/L (21-32); CHLORIDE 100 mmol/L (98-107); GLUCOSE 88 mg/dL (74-106); MAGNESIUM 2.4 mg/dL (1.8-2.4); PHOSPHORUS 6.1 mg/dL (2.5-4.9); POTASSIUM 4.5 mmol/L (3.5-5.1); SODIUM SERUM 136 mmol/L (136-145); UREA NITROGEN, BLOOD 55 mg/dL (7-18)
[2019-10-10 07:54] LABS: FREE PSA 0.6 ng/mL (0.00-45); PROSTATE SPECIFIC ANTIGEN SCR 2.1 ng/mL (0.00-4.00)
[2019-10-10] MEDS: BLOOD SUGAR DIAGNOSTIC 1 EACH STRIP IN SCH ×3 (07:54→17:30)
[2019-10-10 08:00] VITALS: BP 120/49
[2019-10-10 08:00] LABS: CREATININE 7.9 mg/dL (0.6-1.3)
--- NOTE | 2019-10-10 08:27 | NUR ---
RN NOTE Notified AIRFRAME AND POWERPLANT MECHANIC Shaneka of critical lab creatinine 7.9 no new orders at this time.
[2019-10-10] MEDS: FOLIC ACID 1 MG TABLET PO SCH (09:04)
[2019-10-10] MEDS: ASPIRIN 81 MG TAB.CHEW PO SCH (09:04)
[2019-10-10] MEDS: ASCORBIC ACID 500 MG TABLET PO SCH (09:04)
[2019-10-10] MEDS: Z GUARD REMEDY 2 OZ OINT TP SCH (09:05)
[2019-10-10] MEDS: SILVER SULFADIAZINE 50 GM JAR TP SCH (09:05)
[2019-10-10] MEDS: LACTOBACILLUS RHAMNOSUS GG 1 EACH CAP.SPRINK PO SCH ×3 (09:05→17:25)
[2019-10-10] MEDS: PROSOURCE / PROSTAT (PYXIS) 30 ML UDC GT SCH ×3 (09:14→17:26)
[2019-10-10] MEDS: MUPIROCIN OINT 2% 22 GM TUBE SCH (09:16)
[2019-10-10] MEDS: DOCUSATE SODIUM 100 MG CAPSULE PO SCH ×2 (09:17→17:26)
--- NOTE | 2019-10-10 12:28 | NUR ---
RN NOTE patient refusing glucose check for 1200
[2019-10-10] MEDS ORDERED: Prosource GT (14:22)
[2019-10-10] MEDS ORDERED: CEFE1PIG3 IV (14:22)
[2019-10-10] MEDS ORDERED: Silver Sulfadiazine TP (14:22)
[2019-10-10 16:00] VITALS: BP 127/67
--- NOTE | 2019-10-10 17:00 | NUR ---
RN NOTE Patient refused blood sugar check for 1700.
[2019-10-10] MEDS: CEFEPIME 1 GM in IV D5W 50 ML IV SCH (17:26)
--- NOTE | 2019-10-10 17:30 | NUR ---
RN NOTE Upon cleaning the patient, light red bloody mucoid discharge was coming from the rectum. Notified STRAW HAT BRIM CUTTER OPERATOR and obtained orders for stat H&H. Ambulance put on will call. Awaiting for H&H results to come back.
[2019-10-10 19:41] LABS: HEMOGLOBIN 11.1 g/dL (13.5-17.5)
[2019-10-10 20:00] VITALS: BP 123/68
--- NOTE | 2019-10-10 20:03 | NUR ---
RN NOTE Hgb 11.1 HCt 34. Ok to DC per MD. Charge nurse aware. [facility] on will call. Was not able to give report to [facility]. Endorsed to second shift supervisor to give report and call [facility]. DC instructions complete, folder placed in chart. Photos taken and placed in chart. Wound care done. Patient will we leaving with PICC line to continue iv abx. Patient is resting in bed, A/O x2, confused and uncooperative. All patient needs met, all due medications given. Bed is in lowest position, side rails x3 in upright position ,call light is within reach, fall safety and aspiration precautions enforced.
== END 2019-10-10 22:30 | DRG 871 ==
LOC: ER 10:24 → ICU 12:28 → TELE 10-06 18:35 → MED 10-06 20:04
PROVIDERS: ADMIT Nurse Practitioner Acute Care; ATTEND Registered Nurse
PROC: 02HV33Z Insertion of Infusion Device into Superior Vena Cava, Percutaneous Approach (ICD-10-PCS; principal; 2019-10-02)
PROC: B548ZZA Ultrasonography of Superior Vena Cava, Guidance (ICD-10-PCS; 2019-10-02)
PROC: 5A1D70Z Performance of Urinary Filtration, Intermittent, Less than 6 Hours Per Day (ICD-10-PCS; 2019-10-02)
DX: A41.9 Sepsis, unspecified organism (principal); G93.41 Metabolic encephalopathy; N18.6 End stage renal disease; R65.21 Severe sepsis with septic shock; E44.0 Moderate protein-calorie malnutrition; I12.0 Hypertensive chronic kidney disease with stage 5 chronic kidney disease or end stage renal disease; E87.2 Acidosis; N12 Tubulo-interstitial nephritis, not specified as acute or chronic; L97.429 Non-pressure chronic ulcer of left heel and midfoot with unspecified severity; E11.22 Type 2 diabetes mellitus with diabetic chronic kidney disease; Z99.2 Dependence on renal dialysis; E78.5 Hyperlipidemia, unspecified; D63.1 Anemia in chronic kidney disease; E11.621 Type 2 diabetes mellitus with foot ulcer; Z87.440 Personal history of urinary (tract) infections; Z85.51 Personal history of malignant neoplasm of bladder; Z86.73 Personal history of transient ischemic attack (TIA), and cerebral infarction without residual deficits; Z79.84 Long term (current) use of oral hypoglycemic drugs; Z79.4 Long term (current) use of insulin; Z79.82 Long term (current) use of aspirin; F03.90 Unspecified dementia, unspecified severity, without behavioral disturbance, psychotic disturbance, mood disturbance, and anxiety; F32.9 Major depressive disorder, single episode, unspecified; F41.1 Generalized anxiety disorder; M10.9 Gout, unspecified; E11.65 Type 2 diabetes mellitus with hyperglycemia; E87.5 Hyperkalemia; R40.2423 Glasgow coma scale score 9-12, at hospital admission; E88.09 Other disorders of plasma-protein metabolism, not elsewhere classified; Z68.22 Body mass index [BMI] 22.0-22.9, adult; B96.89 Other specified bacterial agents as the cause of diseases classified elsewhere; Z22.322 Carrier or suspected carrier of Methicillin resistant Staphylococcus aureus; L97.529 Non-pressure chronic ulcer of other part of left foot with unspecified severity; L97.519 Non-pressure chronic ulcer of other part of right foot with unspecified severity; Z90.49 Acquired absence of other specified parts of digestive tract; N40.1 Benign prostatic hyperplasia with lower urinary tract symptoms
CPT/HCPCS: 36415; 70450-TC; 71045-TC; 80048-TC; 80053-TC; 80076-TC; 81000-TC; 82533; 82728-TC; 82962-TC; 83605-TC; 83615-TC; 83735-TC; 84100-TC; 84153-TC; 84154-TC; 84484-TC; 85025-TC; 85027-TC; 85730-TC; 86140-TC; 86706; 86803; 87040-TC; 87045-TC; 87081-TC; 87086-TC; 87186-TC; 87340; 87806; 90935-TC; 92526; 92611-TC; 93307-TC; A4216; A6253; C1751; G0378; J0692; J0696; J1815; J3490; J7030; J7050; J7060

== ENCOUNTER 2019-10-16 11:01 | Inpatient (IN) | payer MEDICARE, OTHER ==
[~2019-10-16] VITALS: Ht 185.4 cm; Wt 77.1 kg
[~2019-10-16 11:01] MED LIST changes: +ALBU2.5V38 IH; +AMIN887L PO; +ARGI1POW13 PO; +ASCO500T20 PO; -CEFE1FRO IV; +CEFE1PIG3 IV; +GUAI100S11 PO; +Prosource GT; +Silver Sulfadiazine TP; -VITA-339 PO
--- NOTE | 2019-10-16 11:20 | NUR ---
BIB RA c/o low blood pressure prior to dialysis. Patient a/o1, confused, non-verbal. Breathing even and unlabored, no sob noted, Needs attended, kept comfortable. Attached to the secret code expert. Noted with KATTY picc line.
[2019-10-16 11:32] LABS: BASOPHILS # (AUTO) 0.1 /CMM (0.0-0.2); BASOPHILS % (AUTO) 0.5 % (0.0-2.0); EOSINOPHILS % (AUTO) 0.8 % (0.0-6.0); HEMATOCRIT 33 % (39-51); HEMOGLOBIN 10.6 g/dL (13.5-17.5); LYMPHOCYTES # (AUTO) 2.3 /CMM (0.8-4.8); LYMPHOCYTES % (AUTO) 10.9 % (20.0-44.0); MEAN CORPUSCULAR HGB CONC 32 g/dl (31.0-36.0); MEAN CORPUSCULAR VOLUME 98 fL (80-96); MONOCYTES # (AUTO) 2.1 /CMM (0.1-1.30); MONOCYTES % (AUTO) 9.5 % (2.0-12.0); NEUTROPHILS # (AUTO) 16.9 /CMM (1.8-8.9); NEUTROPHILS % (AUTO) 78.3 % (43.0-81.0); PLATELET COUNT (AUTO) 261 /CMM (150-450); RED BLOOD CELL COUNT(AUTO) 3.41 MIL/uL (4.5-6.0); WHITE BLOOD COUNT (AUTO) 21.6 K/uL (4.3-11.0)
[2019-10-16 11:34] LABS: CALCIUM, SERUM 9.3 mg/dL (8.5-10.1); CARBON DIOXIDE 19 mmol/L (21-32); CHLORIDE 101 mmol/L (98-107); GLUCOSE 112 mg/dL (74-106); POTASSIUM 3.9 mmol/L (3.5-5.1); SODIUM SERUM 137 mmol/L (136-145); UREA NITROGEN, BLOOD 53 mg/dL (7-18)
[2019-10-16 11:35] LABS: CREATININE 8.8 mg/dL (0.6-1.3)
[2019-10-16 11:55] LABS: ALANINE AMINOTRANSFERASE 15 U/L (12-78); ALKALINE PHOSPHATASE 97 U/L (46-116); BILIRUBIN,DIRECT 0.1 mg/dL (0.0-0.2); BILIRUBIN,TOTAL 0.4 mg/dL (0.2-1.0); TOTAL PROTEIN, SERUM 6.8 g/dL (6.4-8.2)
[2019-10-16 11:56] LABS: ALBUMIN 2.3 g/dL (3.4-5.0); ASPARTATE AMINOTRANSFERASE 11 U/L (15-37)
[2019-10-16] MEDS ORDERED: PIPERACILLIN /TAZOBACTAM 3.375 G VIAL IV ONE (11:57)
[2019-10-16] MEDS ORDERED: VANCOMYCIN 1 GM VIAL ONE (11:57)
[2019-10-16] MEDS ORDERED: PIPERACILLIN /TAZOBACTAM 3.375 G in IV D5W 50 ML IV ONE (12:00)
[2019-10-16] MEDS ORDERED: VANCOMYCIN 1 GM in IV D5W 250 ML IV ONE (12:00)
[2019-10-16] MEDS ORDERED: IV NS 0.9% 500 ML BAG IV ONE (12:00)
--- NOTE | 2019-10-16 12:29 | NUR ---
CALLED [facility] SHARRI
[2019-10-16 12:44] LABS: APPEARANCE,URINE TURBID (CLEAR)
[2019-10-16 12:45] LABS: COLOR,URINE OTHER (YELLOW); PROTEIN,URINE 2+ mg/dl (NEGATIVE)
[2019-10-16 12:46] LABS: BLOOD, URINE 3+ Ery/uL (NEGATIVE); UGLUCOSE NEGATIVE (NEGATIVE)
[2019-10-16 12:47] LABS: BILIRUBIN,URINE NEGATIVE (NEGATIVE); KETONES,URINE NEGATIVE (NEGATIVE); NITRITE, URINE NEGATIVE (NEGATIVE); UROBILINOGEN,URINE 0.2 EU/dL (0.2)
[2019-10-16 12:48] LABS: LEUKOCYTE ESTERASE ,URINE 3+ (NEGATIVE)
[2019-10-16 12:51] LABS: WBC,URINE TOO NUMEROUS TO COUN /HPF (0-3)
[2019-10-16 12:52] LABS: BACTERIA,URINE 2+ /HPF (None Seen); RBC,URINE 21-50 /HPF (0-2); SQUAMOUS EPITHELIAL CELL,UR None Seen /HPF (None Seen); URINE AMORPHOUS PHOSPHATES Moderate /HPF (None Seen)
[2019-10-16] MEDS ORDERED: MAGNESIUM HYDROXIDE 30 ML UDC PO PRN ×2 (13:30→14:00)
[2019-10-16] MEDS ORDERED: ALBUTEROL FS 2.5 MG/3 ML VIAL.NEB IH PRN (13:30)
--- NOTE | 2019-10-16 13:45 | NUR ---
report given to Jarrell for [facility].
[2019-10-16] MEDS ORDERED: FEE PK DOSING 1 MIN EA MC ONE (13:49)
[2019-10-16 14:00] VITALS: BP 97/49
[2019-10-16] MEDS ORDERED: DEXTROSE 50%-WATER 50 ML DISP.SYRIN IV PRN (14:00)
[2019-10-16] MEDS ORDERED: ACETAMINOPHEN 325 MG TABLET PO PRN (14:00)
[2019-10-16] MEDS ORDERED: MAG HYDROX/AL HYDROX/SIMETH 30 ML UDC PO PRN (14:00)
[2019-10-16] MEDS ORDERED: HYDROCODONE/APAP 5/325MG 1 EACH TABLET PO PRN (14:00)
[2019-10-16] MEDS ORDERED: ONDANSETRON HCL/PF 4 MG/2 ML VIAL IVP PRN (14:00)
[2019-10-16] MEDS ORDERED: LACTULOSE 10 G/15 ML UDC (PYXIS) PO PRN (14:00)
--- NOTE | 2019-10-16 14:00 | NUR ---
tele [facility] former: admission admitted this 84 year old male pt from e.r. via [facility] accompanied by 2 e.r. staff. pt combative from the start. transferred pt safely to hospital bed with 4 person assistance. pt awake, but confused and disoriented to time, place, and situation. pt noted with stool (mash like) with urine. pt combative during care and assessment. noted with left heel diabetic ulcer, sacral/buttocks masd/wound, maximus big toe dry eschar. photos taken and placed in chart. wound consult ordered. oriented to room and surroundings. place pt on tele sr=70's. with pvc's. place pt on o2 at 2l/min via n/c due satting 88% on room air and jump to 96%-98% when oxygen provided. sr up x 3 and bed alarm on for safety. place call light within easy reach. will continue to monitor.
--- NOTE | 2019-10-16 14:04 | NUR ---
PATIENT TRANSFERRED TO ROOM 309-1 VIA ACLS PROTOCOL. NO DISTRESS NOTED. NEEDS ATTENDED, ENDORSED TO MINA FUCHS.
[2019-10-16 16:00] VITALS: BP 100/50
[2019-10-16] MEDS ORDERED: Medication Not On Formulary EA (Arginine/Ascorbate Sod/Vite AC (Arginaid Powder) 1 EACH) PO SCH (17:00)
[2019-10-16] MEDS: DOCUSATE SODIUM 100 MG CAPSULE PO SCH (17:00)
[2019-10-16] MEDS: LACTOBACILLUS RHAMNOSUS GG 1 EACH CAP.SPRINK PO SCH (17:00)
[2019-10-16] MEDS: PROSOURCE / PROSTAT (PYXIS) 30 ML UDC PO SCH (17:00)
--- NOTE | 2019-10-16 17:00 | NUR ---
tele anode builder: notes bs ccpbk=[id number] with some difficulty. pt still resistive with care and treatment plan. will continue to monitor.
[2019-10-16] MEDS: BLOOD SUGAR DIAGNOSTIC 1 EACH STRIP VI SCH ×2 (17:13→21:56)
--- NOTE | 2019-10-16 17:30 | NUR ---
tele assembly manager: notes pt refused to eat and takes his medications, stated, "no, no..." reality orientation provided prn.
--- NOTE | 2019-10-16 18:00 | NUR ---
m/s business operations director: notes pt remains resistive and combative during care. remains confused and disoriented. tele sr=70's. reality orientation provided prn. needs attended. will continue to monitor.
--- NOTE | 2019-10-16 19:00 | NUR ---
tele correctional case manager: notes bedside report given to janeen kelly) for continuity of care.
--- NOTE | 2019-10-16 19:00 | NUR ---
Received patient in his bed. Will open eyes wjen name spoken. 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 Both arms are rigid. Noted he was not combative as told when his name is spoken and explain what was about to be done. Bed alarm on
[2019-10-16 20:00] VITALS: BP 142/66
[2019-10-16 20:10] VITALS: BP 142/66
[2019-10-16] MEDS: PIPERACILLIN /TAZOBACTAM 2.25 G in IV D5W 50 ML IV SCH (20:46)
[2019-10-16 23:56] VITALS: BP 100/50
[2019-10-17] VITALS: BP 100/50
[2019-10-17 04:00] VITALS: BP 100/33
[2019-10-17 04:40] VITALS: BP 100/33
[2019-10-17] MEDS: PIPERACILLIN /TAZOBACTAM 2.25 G in IV D5W 50 ML IV SCH ×3 (04:44→20:56)
--- NOTE | 2019-10-17 04:56 | NUR ---
ENDING NOTES: WILL SPEAK BUT IN A WHISPER. WILL SHAKE HIS HEAD YES OR NO WITH SIMPLE QUESTIONS. WHEN SPOKEN TO PRIOR TOUCHING HIM HE IS COOPERATIVE. WILL DRINK FROM A SHORTENED STRAW W/O PROBLEMS. WITH THE LONGER STRAW HE WAS UNABLE TO SUCK THE FLUID UP. BLOOD PRESSURE REMAINS LOW IN THE 90S . ON THE MONITOR HE IS SR . SKIN WARM AND DRY. AT 6AM WILL DRAW THE VANCO TROUGH ORDERED. NOTED HE IS TO HAVE DIALYSIS THIS AM AT 7AM ORDERED BY MR HAINES.
[2019-10-17] MEDS: BLOOD SUGAR DIAGNOSTIC 1 EACH STRIP VI SCH ×4 (06:11→22:10)
[2019-10-17 06:30] LABS: BASOPHILS % (AUTO) 0.4 % (0.0-2.0); EOSINOPHILS % (AUTO) 1.7 % (0.0-6.0); HEMATOCRIT 30 % (39-51); HEMOGLOBIN 9.8 g/dL (13.5-17.5); LYMPHOCYTES # (AUTO) 2.2 /CMM (0.8-4.8); LYMPHOCYTES % (AUTO) 17.4 % (20.0-44.0); MEAN CORPUSCULAR HGB CONC 33 g/dl (31.0-36.0); MEAN CORPUSCULAR VOLUME 97 fL (80-96); MONOCYTES # (AUTO) 1.5 /CMM (0.1-1.30); MONOCYTES % (AUTO) 11.6 % (2.0-12.0); NEUTROPHILS # (AUTO) 8.7 /CMM (1.8-8.9); NEUTROPHILS % (AUTO) 68.9 % (43.0-81.0); PLATELET COUNT (AUTO) 276 /CMM (150-450); RED BLOOD CELL COUNT(AUTO) 3.11 MIL/uL (4.5-6.0); WHITE BLOOD COUNT (AUTO) 12.6 K/uL (4.3-11.0)
[2019-10-17 07:24] LABS: CALCIUM, SERUM 8.8 mg/dL (8.5-10.1); CARBON DIOXIDE 20 mmol/L (21-32); CHLORIDE 101 mmol/L (98-107); GLUCOSE 98 mg/dL (74-106); MAGNESIUM 2.2 mg/dL (1.8-2.4); POTASSIUM 4.3 mmol/L (3.5-5.1); SODIUM SERUM 137 mmol/L (136-145); UREA NITROGEN, BLOOD 57 mg/dL (7-18)
[2019-10-17 07:50] LABS: CREATININE 9.3 mg/dL (0.6-1.3)
[2019-10-17 08:00] VITALS: BP 106/67
--- NOTE | 2019-10-17 08:15 | NUR ---
ABNORMAL CREATININE AND PHOSPHOROUS REPORTED TO DR. HARRELL.TO BE DIALYZED TODAY.
[2019-10-17] MEDS: PROSOURCE / PROSTAT (PYXIS) 30 ML UDC PO SCH ×2 (09:00→17:00)
[2019-10-17] MEDS: VIT B CMPLX 3/FA/VIT C/BIOTIN 1 TAB TABLET PO SCH (09:00)
[2019-10-17] MEDS: ESCITALOPRAM OXALATE (10 MG) 10 MG TABLET PO SCH (09:00)
[2019-10-17] MEDS: ASCORBIC ACID 500 MG TABLET PO SCH (09:00)
[2019-10-17] MEDS: DOCUSATE SODIUM 100 MG CAPSULE PO SCH ×2 (09:00→17:00)
[2019-10-17] MEDS: LACTOBACILLUS RHAMNOSUS GG 1 EACH CAP.SPRINK PO SCH ×3 (09:00→17:00)
[2019-10-17] MEDS: ASPIRIN 81 MG TAB.CHEW PO SCH (09:00)
--- NOTE | 2019-10-17 09:01 | NUR ---
WOUND CARE CONSULT: PT FOLLOWED BY SURGICAL TEAMS (PODIATRY AND PLASTICS) FOR WOUND CARE AND SKIN ISSUES. DR LOVE AND DR REYES NOTIFIED OF READMISSION. RECOMMENDATIONS MADE FOR SKIN PROTECTION. DISCUSSED WITH NURSING STAFF. DEFER TO SURGICAL TEAMS FOR WOUND TREATMENT PLAN. WILL SEE PRN. ISOFLEX LOW AIRLOSS BED TO BE PLACED. CURRENT JN SCORE IS 13.
[2019-10-17] MEDS: VANCOMYCIN 500 MG in IV D5W 100 ML IV PRN (12:57)
[2019-10-17] MEDS: *INSULIN REGULAR(HUMULIN R)HUM 100 UNIT/ML VIAL SQ PRN ×2 (13:38→22:11)
--- NOTE | 2019-10-17 15:00 | NUR ---
dialysis complete. no fluid removed.
[2019-10-17 16:00] VITALS: BP 111/65
--- NOTE | 2019-10-17 19:20 | NUR ---
bradofrd swab done and taken to lab.additionally received call from [employer] that pt.is positive for mrsa rt. nares.to order bactroban.
--- NOTE | 2019-10-17 19:40 | NUR ---
MS RN OPENING NOTES RECEIVED PATIENT IN BED, EYES OPEN AND MOANING. BREATHING REGULAR AND UNLABORED ON ROOM AIR. RIGHT UPPER ARM PICC LINE INTACT AND PATENT, FLUSHING WELL WITH NO BLEEDING OR S/S OF INFILTRATION NOTED. NO S/S OF PAIN/DISCOMFORT SEEN AT THIS TIME. BED LOW AND LOCKED ON SEMI FOWLERS POSITION. CALL LIGHT IN REACH. WILL CONTINUE TO MONITOR.
[2019-10-17 20:00] VITALS: BP_SYST 112; BP_SYST 134; BP_DIAS 48; BP_DIAS 53
--- NOTE | 2019-10-17 20:30 | NUR ---
MS RN NOTES TELEPHONE CONSENT FOR LEFT HEEL DEBRIDEMENT GIVEN BY TE LOPEZ, WITNESS BY RN LEWIS. CONSENT ATTACHED TO CHART.
[2019-10-17] MEDS: MUPIROCIN OINT 2% 22 GM TUBE SCH (20:56)
[2019-10-17] MEDS ORDERED: ATORVASTATIN 10 MG TABLET PO SCH (22:00)
[2019-10-18] MEDS: PIPERACILLIN /TAZOBACTAM 2.25 G in IV D5W 50 ML IV SCH ×3 (04:09→21:09)
[2019-10-18] MEDS: INSULIN REGULAR, HUMAN 100 UNIT/ML 3 ML VIAL SQ PRN (06:35)
[2019-10-18] MEDS: BLOOD SUGAR DIAGNOSTIC 1 EACH STRIP VI SCH ×4 (06:35→21:10)
--- NOTE | 2019-10-18 06:40 | NUR ---
MS RN CLOSING NOTES PATIENT IN BED, AWAKE AND SPEAKING FOREIGN LANGUAGE. BREATHING REGULAR AND UNLABORED ON ROOM AIR. RIGHT UPPER ARM PICC LINE PATENT AND FLUSHING WELL. NO S/S OF PAIN/DISCOMFORT SEEN THE WHOLE SHIFT. BED LOW AND LOCKED ON SEMI FOWLERS POSITION. CALL LIGHT IN REACH. WILL ENDORSE TO MORNING SHIFT FOR ROSIE.
[2019-10-18 06:52] LABS: BASOPHILS # (AUTO) 0.1 /CMM (0.0-0.2); BASOPHILS % (AUTO) 0.9 % (0.0-2.0); EOSINOPHILS % (AUTO) 2.1 % (0.0-6.0); HEMATOCRIT 29 % (39-51); HEMOGLOBIN 9.7 g/dL (13.5-17.5); LYMPHOCYTES # (AUTO) 2.5 /CMM (0.8-4.8); MEAN CORPUSCULAR HGB CONC 33 g/dl (31.0-36.0); MEAN CORPUSCULAR VOLUME 96 fL (80-96); MONOCYTES # (AUTO) 1.7 /CMM (0.1-1.30); NEUTROPHILS # (AUTO) 5.1 /CMM (1.8-8.9); PLATELET COUNT (AUTO) 283 /CMM (150-450); RED BLOOD CELL COUNT(AUTO) 3.01 MIL/uL (4.5-6.0); WHITE BLOOD COUNT (AUTO) 9.7 K/uL (4.3-11.0)
[2019-10-18 07:35] LABS: CALCIUM, SERUM 8.5 mg/dL (8.5-10.1); CARBON DIOXIDE 22 mmol/L (21-32); CHLORIDE 99 mmol/L (98-107); CREATININE 7.4 mg/dL (0.6-1.3); GLUCOSE 86 mg/dL (74-106); PHOSPHORUS 5.2 mg/dL (2.5-4.9); POTASSIUM 3.7 mmol/L (3.5-5.1); SODIUM SERUM 135 mmol/L (136-145); UREA NITROGEN, BLOOD 40 mg/dL (7-18)
[2019-10-18 08:00] VITALS: BP 109/64
[2019-10-18] MEDS: PROSOURCE / PROSTAT (PYXIS) 30 ML UDC PO SCH ×2 (09:00→17:00)
[2019-10-18] MEDS: LACTOBACILLUS RHAMNOSUS GG 1 EACH CAP.SPRINK PO SCH ×3 (09:26→17:13)
[2019-10-18] MEDS: MUPIROCIN OINT 2% 22 GM TUBE SCH ×2 (09:26→21:10)
[2019-10-18] MEDS: ASCORBIC ACID 500 MG TABLET PO SCH (09:26)
[2019-10-18] MEDS: DOCUSATE SODIUM 100 MG CAPSULE PO SCH ×2 (09:26→17:13)
[2019-10-18] MEDS: ASPIRIN 81 MG TAB.CHEW PO SCH (09:26)
[2019-10-18] MEDS: ESCITALOPRAM OXALATE (10 MG) 10 MG TABLET PO SCH (09:26)
[2019-10-18] MEDS: VIT B CMPLX 3/FA/VIT C/BIOTIN 1 TAB TABLET PO SCH (09:26)
[2019-10-18] MEDS: SILVER SULFADIAZINE CREAM 25 GM TUBE TP SCH (09:29)
[2019-10-18 16:00] VITALS: BP 108/56
--- NOTE | 2019-10-18 18:21 | NUR ---
Patient resting in bed , remains in stable condition , breathing unlabored on room air. Patient responds to his name, speaks Nauruan, able to respond to simple questions. In general confused and oriented x1. Patient kept clean and dry , all needs attended. God appetite with feeder, po meds crushed. KATTY midline intact and patent , flushing well. L upper chest permacath intact, dressing clean. PAtient turned and repositioned Q2Hr, wound on left heel s/p debridement today; clean and dry. Will endorse to next shift for ROSIE.
--- NOTE | 2019-10-18 19:15 | NUR ---
MS RN OPENING NOTES: RECEIVED PATIENT IN BED ASLEEP. CALL LIGHT WITHIN REACH. BED ALARM ON. ON CONTACT ISOLATION FOR MRSA NARES. BED IN LOWEST AND LOCKED POSITION.
[2019-10-18 20:00] VITALS: BP 115/47
[2019-10-18 20:45] VITALS: BP 115/47
--- NOTE | 2019-10-18 21:12 | NUR ---
BLOOD SUGAR FINGERSTICK IS 99, NO INSULIN GIVEN.
--- NOTE | 2019-10-19 00:26 | NUR ---
SACRAL AND PERINEAL- CLEANSED WITH NS AND PAT DRIED,APPLIED Z-GUARD.
--- NOTE | 2019-10-19 03:16 | NUR ---
WOUND TREATMENTS: LEFT HEEL DIABETIC ULCER- WOUND EDGES PAINTED WITH BETADINE, SILVADENE CREAM APPLIED TO THE WOUND BASE. COVERED WITH GAUZE AND WRAPPED WITH KERLIX DRESSING. HEELS OFFLOADED WITH PILLOWS AT ALL TIMES. SCD's ON BOTH LEGS AT ALL TIMES. LEFT GREAT TOE DIABETIC ULCER- PAINTED WITH BETADINE AND COVERED WITH FOAM DRESSING. RIGHT GREAT TOE DIABETIC ULCER- PAINTED WITH BETADINE AND COVERED WITH FOAM DRESSING.
[2019-10-19] MEDS: Z GUARD REMEDY 2 OZ OINT TP PRN ×2 (03:37→09:31)
[2019-10-19] MEDS: SILVER SULFADIAZINE CREAM 25 GM TUBE TP SCH (03:37)
[2019-10-19] MEDS: PIPERACILLIN /TAZOBACTAM 2.25 G in IV D5W 50 ML IV SCH ×3 (04:19→21:39)
--- NOTE | 2019-10-19 06:35 | NUR ---
MS RN CLOSING NOTES: PATIENT IN BED, SLIGHTLY AWAKE. HOB ELEVATED AT ALL TIMES. NO COMPLAIN OF PAIN. NO SOB NOTED. CALL LIGHT WITHIN REACH. BED ALARM ON. BED IN LOWEST AND LOCKED POSITION.PATIENT STILL CONFUSED. CONTACT ISOLATION OBSERVED AT ALL TIMES.
[2019-10-19] MEDS: BLOOD SUGAR DIAGNOSTIC 1 EACH STRIP VI SCH ×4 (06:53→22:54)
[2019-10-19 06:54] LABS: BASOPHILS # (AUTO) 0.1 /CMM (0.0-0.2); HEMATOCRIT 31 % (39-51); HEMOGLOBIN 10.1 g/dL (13.5-17.5); LYMPHOCYTES # (AUTO) 2.2 /CMM (0.8-4.8); LYMPHOCYTES % (AUTO) 28.7 % (20.0-44.0); MEAN CORPUSCULAR HGB CONC 33 g/dl (31.0-36.0); MEAN CORPUSCULAR VOLUME 96 fL (80-96); MONOCYTES # (AUTO) 1.8 /CMM (0.1-1.30); MONOCYTES % (AUTO) 24.4 % (2.0-12.0); NEUTROPHILS # (AUTO) 3.3 /CMM (1.8-8.9); NEUTROPHILS % (AUTO) 43.9 % (43.0-81.0); PLATELET COUNT (AUTO) 319 /CMM (150-450); RED BLOOD CELL COUNT(AUTO) 3.17 MIL/uL (4.5-6.0); WHITE BLOOD COUNT (AUTO) 7.5 K/uL (4.3-11.0)
--- NOTE | 2019-10-19 06:54 | NUR ---
BLOOD SUGAR FINGERSTICK TODAY IS 79, NO INSULIN GIVEN.
[2019-10-19 07:14] LABS: CALCIUM, SERUM 8.8 mg/dL (8.5-10.1); CARBON DIOXIDE 22 mmol/L (21-32); CHLORIDE 99 mmol/L (98-107); GLUCOSE 89 mg/dL (74-106); SODIUM SERUM 135 mmol/L (136-145); UREA NITROGEN, BLOOD 52 mg/dL (7-18)
[2019-10-19 07:22] LABS: CREATININE 8.7 mg/dL (0.6-1.3)
[2019-10-19 07:54] VITALS: BP 107/41
--- NOTE | 2019-10-19 08:00 | NUR ---
m/s patient care technician instructor: notes received pt in bed awake, alert to name only with confusion and disorientation to time, place, and situation. pt easily agitated. pt combative during care and treatment. reality orientation provided prn. will continue to monitor.
[2019-10-19] MEDS: ASPIRIN 81 MG TAB.CHEW PO SCH (08:38)
[2019-10-19] MEDS: ESCITALOPRAM OXALATE (10 MG) 10 MG TABLET PO SCH (08:38)
[2019-10-19] MEDS: ASCORBIC ACID 500 MG TABLET PO SCH (08:38)
[2019-10-19] MEDS: DOCUSATE SODIUM 100 MG CAPSULE PO SCH ×2 (08:38→18:05)
[2019-10-19] MEDS: LACTOBACILLUS RHAMNOSUS GG 1 EACH CAP.SPRINK PO SCH ×3 (08:38→18:05)
[2019-10-19] MEDS: VIT B CMPLX 3/FA/VIT C/BIOTIN 1 TAB TABLET PO SCH (08:40)
[2019-10-19 08:42] LABS: BAND % (MANUAL) 1 % (0.0-5.0); LYMPHOCYTES % (MANUAL) 25 % (16-48); MONOCYTES % (MANUAL) 20 % (0-11.0); NEUTROPHILS % (MANUAL) 54 (42-76)
[2019-10-19] MEDS: PROSOURCE / PROSTAT (PYXIS) 30 ML UDC PO SCH ×2 (08:46→18:07)
[2019-10-19] MEDS: MUPIROCIN OINT 2% 22 GM TUBE SCH ×2 (09:31→21:39)
--- NOTE | 2019-10-19 10:00 | NUR ---
m/s government affairs fellow: md visit seen and examined by dr. kennedy at this time.
--- NOTE | 2019-10-19 14:00 | NUR ---
m/s rubber attacher: notes hd tx started by jaymie (rn) at this time.
[2019-10-19 15:43] VITALS: BP 103/46
[2019-10-19 16:50] VITALS: BP 131/58
--- NOTE | 2019-10-19 16:50 | NUR ---
m/s oracle iam consultant: notes hd completed with 2 liter uf per peter. b/p 131/58, hr81. needs attended. bs check=74. dinner served. hob elevated. pole peeler to assist with meal.
--- NOTE | 2019-10-19 18:15 | NUR ---
M/S SWATCH CHECKER: NOTES RESTING COMFORTABLE IN BED. NEEDS ATTENDED. IN NO APPARENT DISTRESS NOTED. WILL CONTINUE TO MONITOR.
--- NOTE | 2019-10-19 19:15 | NUR ---
MS RN NOTES RECEIVED PT IN BED AND AWAKE. PT A/O X1 CONFUSED. RESPIRATIONS EVEN AND UNLABORED WITH NO S/S OF ACUTE DISTRESS OR SOB NOTED. NO COMPLAINTS OF PAIN AT THIS TIME. SAFETY MEASURES IN PLACE WITH BED IN LOWEST LOCKED POSITION WITH SIDE RAILS UPX2. CALL LIGHT WITHIN REACH. WILL CONTINUE TO MONITOR.
--- NOTE | 2019-10-19 19:21 | NUR ---
M/S HVAC JOURNEYMAN: NOTES REPORT GIVEN TO CARMINE (RN) FOR CONTINUITY OF CARE AND ENDORSED VANCOMYCIN TO BE GIVEN POST HD.
[2019-10-19] MEDS: VANCOMYCIN 500 MG in IV D5W 100 ML IV PRN (19:40)
[2019-10-19 20:14] VITALS: BP 136/69
[2019-10-20] MEDS: PIPERACILLIN /TAZOBACTAM 2.25 G in IV D5W 50 ML IV SCH ×3 (05:43→21:08)
--- NOTE | 2019-10-20 06:30 | NUR ---
MS RN NOTES PT NOTED WITH BLOOD IN STOOL. MD MADE AWARE WITH NEW ORDERS FOR CBC AND STOOL OB. WILL CONTINUE TO MONITOR.
[2019-10-20] MEDS: BLOOD SUGAR DIAGNOSTIC 1 EACH STRIP VI SCH ×4 (06:47→21:16)
--- NOTE | 2019-10-20 07:40 | NUR ---
MS RN NOTES PT IN BED AND AWAKE. PT A/O X1 CONFUSED. RESPIRATIONS EVEN AND UNLABORED WITH NO S/S OF ACUTE DISTRESS OR SOB NOTED THROUGHOUT SHIFT. NO COMPLAINTS OF PAIN AT THIS TIME. SAFETY MEASURES IN PLACE WITH BED IN LOWEST LOCKED POSITION WITH SIDE RAILS UPX2. PT KEPT CLEAN, DRY, AND COMFORTABLE. CALL LIGHT WITHIN REACH. WILL ENDORSE TO ONCOMING NURSE FOR ROSIE.
[2019-10-20 07:56] LABS: BASOPHILS # (AUTO) 0.1 /CMM (0.0-0.2); BASOPHILS % (AUTO) 1.1 % (0.0-2.0); EOSINOPHILS % (AUTO) 1.1 % (0.0-6.0); HEMATOCRIT 34 % (39-51); HEMOGLOBIN 11.1 g/dL (13.5-17.5); LYMPHOCYTES # (AUTO) 2.5 /CMM (0.8-4.8); MEAN CORPUSCULAR HGB CONC 33 g/dl (31.0-36.0); MEAN CORPUSCULAR VOLUME 97 fL (80-96); MONOCYTES # (AUTO) 2.1 /CMM (0.1-1.30); MONOCYTES % (AUTO) 25.1 % (2.0-12.0); NEUTROPHILS # (AUTO) 3.6 /CMM (1.8-8.9); NEUTROPHILS % (AUTO) 42.7 % (43.0-81.0); PLATELET COUNT (AUTO) 341 /CMM (150-450); RED BLOOD CELL COUNT(AUTO) 3.46 MIL/uL (4.5-6.0); WHITE BLOOD COUNT (AUTO) 8.5 K/uL (4.3-11.0)
[2019-10-20 08:00] VITALS: BP 119/48
--- NOTE | 2019-10-20 08:00 | NUR ---
MS RN NOTES PATIENT IN BED RESTING NO SOB OR ACUTE DISTRESS NOTED. PATIENT WITH PICC ON RIGHT UPPER ARM. INTACT PATENT. BED IN LOW LOCKED POSITION, CALL LIGHT WITHIN REACH. PATIENT CONFUSED AND COMBATIVE. WILL CONTINUE TO MONITOR.
[2019-10-20] MEDS: ESCITALOPRAM OXALATE (10 MG) 10 MG TABLET PO SCH (08:28)
[2019-10-20] MEDS: LACTOBACILLUS RHAMNOSUS GG 1 EACH CAP.SPRINK PO SCH ×3 (08:28→17:06)
[2019-10-20] MEDS: VIT B CMPLX 3/FA/VIT C/BIOTIN 1 TAB TABLET PO SCH (08:28)
[2019-10-20] MEDS: ASCORBIC ACID 500 MG TABLET PO SCH (08:28)
[2019-10-20] MEDS: ASPIRIN 81 MG TAB.CHEW PO SCH (08:28)
[2019-10-20] MEDS: MUPIROCIN OINT 2% 22 GM TUBE SCH ×2 (08:32→21:08)
[2019-10-20] MEDS: PROSOURCE / PROSTAT (PYXIS) 30 ML UDC PO SCH ×2 (08:32→17:06)
[2019-10-20] MEDS: SILVER SULFADIAZINE CREAM 25 GM TUBE TP SCH (08:32)
[2019-10-20] MEDS: DOCUSATE SODIUM 100 MG CAPSULE PO SCH ×2 (09:00→17:06)
[2019-10-20 10:01] LABS: BAND % (MANUAL) 8 % (0.0-5.0); EOSINOPHILS % (MANUAL) 1 % (0-4); LYMPHOCYTES % (MANUAL) 26 % (16-48); MONOCYTES % (MANUAL) 29 % (0-11.0); NEUTROPHILS % (MANUAL) 36 (42-76)
[2019-10-20 11:18] LABS: OCCULT BLOOD STOOL POSITIVE (NEGATIVE)
[2019-10-20] MEDS: INSULIN REGULAR, HUMAN 100 UNIT/ML 3 ML VIAL SQ PRN (11:52)
[2019-10-20 16:00] VITALS: BP 111/67
--- NOTE | 2019-10-20 18:22 | NUR ---
MS RN NOTES PATIENT IN BED RESTING NO SOB OR ACUTE DISTRESS NOTED. ALL DUE MEDICATIONS ADMINISTERED. ALL NEEDS MET. WILL ENDORSE CARE TO PM SHIFT.
--- NOTE | 2019-10-20 19:10 | NUR ---
MS RN NOTES RECEIVED PT IN BED AND AWAKE. PT A/O X1 CONFUSED. RESPIRATIONS EVEN AND UNLABORED WITH NO S/S OF ACUTE DISTRESS OR SOB NOTED. PT NOTED WITH KATTY PICC LINE PATENT AND INTACT AND SL. NO COMPLAINTS OF PAIN AT THIS TIME. SAFETY MEASURES IN PLACE WITH BED IN LOWEST LOCKED POSITION WITH SIDE RAILS UPX2. CALL LIGHT WITHIN REACH. WILL CONTINUE TO MONITOR.
[2019-10-20 20:35] VITALS: BP 121/58
[2019-10-21] MEDS: PIPERACILLIN /TAZOBACTAM 2.25 G in IV D5W 50 ML IV SCH ×3 (04:57→21:19)
[2019-10-21] MEDS: BLOOD SUGAR DIAGNOSTIC 1 EACH STRIP VI SCH ×4 (06:45→21:30)
--- NOTE | 2019-10-21 06:48 | NUR ---
MS RN NOTES RECEIVED PT IN BED AND AWAKE. PT A/O X1 CONFUSED. RESPIRATIONS EVEN AND UNLABORED WITH NO S/S OF ACUTE DISTRESS OR SOB NOTED THROUGHOUT SHIFT. PT NOTED WITH KATTY PICC LINE PATENT AND INTACT AND SL. PT KEPT CLEAN, DRY, AND COMFORTABLE. NO COMPLAINTS OF PAIN AT THIS TIME. SAFETY MEASURES IN PLACE WITH BED IN LOWEST LOCKED POSITION WITH SIDE RAILS UPX2. CALL LIGHT WITHIN REACH. WILL ENDORSE TO ONCOMING NURSE FOR ROSIE.
--- NOTE | 2019-10-21 08:00 | NUR ---
MS RN NOTES CALL RECEIVED FROM LAB REPORTING CREATININE OF 9.6 AND PHOS LEVEL OF 8.3 DR BOWER MADE AWARE ORDERS RECEIVED FOR RENVELA 2400MG TID WITH MEALS. ORDERS NOTED AND CARRIED OUT.
--- NOTE | 2019-10-21 08:02 | NUR ---
MS RN NOTES PATIENT IN BED RESTING NO SOB OR ACUTE DISTRESS NOTED. PATIENT IS CONFUSED. PICC LINE INTACT PATENT. BED IN LOW LOCKED POSITION. CALL LIGHT WITHIN REACH. WILL CONTINUE TO MONITOR.
[2019-10-21] MEDS: PROSOURCE / PROSTAT (PYXIS) 30 ML UDC PO SCH ×2 (08:24→17:18)
[2019-10-21] MEDS: ASCORBIC ACID 500 MG TABLET PO SCH (08:24)
[2019-10-21] MEDS: VIT B CMPLX 3/FA/VIT C/BIOTIN 1 TAB TABLET PO SCH (08:24)
[2019-10-21] MEDS: LACTOBACILLUS RHAMNOSUS GG 1 EACH CAP.SPRINK PO SCH ×3 (08:24→17:31)
[2019-10-21] MEDS: ESCITALOPRAM OXALATE (10 MG) 10 MG TABLET PO SCH (08:24)
[2019-10-21] MEDS: ASPIRIN 81 MG TAB.CHEW PO SCH (08:24)
[2019-10-21] MEDS: MUPIROCIN OINT 2% 22 GM TUBE SCH ×2 (08:25→21:22)
[2019-10-21] MEDS: SILVER SULFADIAZINE CREAM 25 GM TUBE TP SCH (08:25)
[2019-10-21] MEDS: DOCUSATE SODIUM 100 MG CAPSULE PO SCH ×2 (08:26→17:00)
[2019-10-21 08:36] LABS: BASOPHILS # (AUTO) 0.1 /CMM (0.0-0.2); BASOPHILS % (AUTO) 0.7 % (0.0-2.0); EOSINOPHILS % (AUTO) 0.8 % (0.0-6.0); HEMATOCRIT 36 % (39-51); HEMOGLOBIN 11.6 g/dL (13.5-17.5); LYMPHOCYTES # (AUTO) 2.5 /CMM (0.8-4.8); LYMPHOCYTES % (AUTO) 27.1 % (20.0-44.0); MEAN CORPUSCULAR HGB CONC 33 g/dl (31.0-36.0); MEAN CORPUSCULAR VOLUME 98 fL (80-96); MONOCYTES # (AUTO) 2.1 /CMM (0.1-1.30); MONOCYTES % (AUTO) 22.2 % (2.0-12.0); NEUTROPHILS # (AUTO) 4.6 /CMM (1.8-8.9); NEUTROPHILS % (AUTO) 49.2 % (43.0-81.0); PLATELET COUNT (AUTO) 332 /CMM (150-450); RED BLOOD CELL COUNT(AUTO) 3.63 MIL/uL (4.5-6.0); WHITE BLOOD COUNT (AUTO) 9.3 K/uL (4.3-11.0)
[2019-10-21 08:44] VITALS: BP 127/88
[2019-10-21 09:03] LABS: CALCIUM, SERUM 9.3 mg/dL (8.5-10.1); CARBON DIOXIDE 18 mmol/L (21-32); CHLORIDE 98 mmol/L (98-107); GLUCOSE 99 mg/dL (74-106); MAGNESIUM 2.4 mg/dL (1.8-2.4); POTASSIUM 4.5 mmol/L (3.5-5.1); SODIUM SERUM 135 mmol/L (136-145); UREA NITROGEN, BLOOD 61 mg/dL (7-18)
[2019-10-21 09:14] LABS: CREATININE 9.6 mg/dL (0.6-1.3); PHOSPHORUS 8.3 mg/dL (2.5-4.9)
[2019-10-21 10:29] LABS: BAND % (MANUAL) 8 % (0.0-5.0); LYMPHOCYTES % (MANUAL) 27 % (16-48); METAMYELOCYTES % 1 % (0-0); MONOCYTES % (MANUAL) 23 % (0-11.0); NEUTROPHILS % (MANUAL) 41 (42-76)
--- NOTE | 2019-10-21 10:37 | NUR ---
MS RN NOTES PATIENT ABLE TO TURN AND MOVE IN BED BUT REFUSES TO MOVE BECOMES COMBATIVE WHEN TURNED BY NURSING STAFF.
[2019-10-21] MEDS: SEVELAMER CARBONATE 800 MG TABLET PO SCH ×2 (12:50→17:31)
[2019-10-21 15:54] VITALS: BP 105/53
--- NOTE | 2019-10-21 18:44 | NUR ---
DRAPERY ROD ASSEMBLER NOTES PATIENT IN BED RESTING NO SOB OR ACUTE DISTRESS NOTED. ALL DUE MEDICATIONS ADMINISTERED. ALL NEEDS MET. WILL ENDORSE TO PM SHIFT ROSIE.
[2019-10-21] MEDS: VANCOMYCIN 500 MG in IV D5W 100 ML IV PRN (18:53)
[2019-10-21 20:00] VITALS: BP 133/89
--- NOTE | 2019-10-21 20:19 | NUR ---
MS RN OPENING NOTES PATIENT RECEIVED RESTING IN BED A/O X1 ERITREAN SPEAKING AND CONFUSED. STABLE ON RA WITH BREATHING EVEN AND UNLABORED, NO SOB NOTED. NO SIGNS OF ACUTE DISTRESS, NO COMPLAINTS OF PAIN OR DISCOMFORT- NO FACIAL GRIMACING NOTED. PICCLINE LOCATED ON KATTY. SAFETY PRECAUTIONS IN PLACE WITH BED IN LOWEST POSITION, CALL LIGHT WITHIN REACH, BREAKS ON. WILL CONTINUE TO MONITOR THROUGHOUT THE NIGHT.
[2019-10-21 21:28] VITALS: BP 133/80
[2019-10-21] MEDS: *INSULIN REGULAR(HUMULIN R)HUM 100 UNIT/ML VIAL SQ PRN (21:33)
[2019-10-22] MEDS: PIPERACILLIN /TAZOBACTAM 2.25 G in IV D5W 50 ML IV SCH ×3 (05:27→20:33)
[2019-10-22] MEDS: BLOOD SUGAR DIAGNOSTIC 1 EACH STRIP VI SCH ×4 (06:35→21:34)
--- NOTE | 2019-10-22 06:37 | NUR ---
MS RN CLOSING NOTES PATIENT RECEIVED RESTING IN BED A/O X1 VATICAN CITIZEN SPEAKING AND CONFUSED. STABLE ON RA WITH BREATHING EVEN AND UNLABORED, NO SOB NOTED. NO SIGNS OF ACUTE DISTRESS, NO COMPLAINTS OF PAIN OR DISCOMFORT- NO FACIAL GRIMACING NOTED. PICCLINE LOCATED ON KATTY TK. SAFETY PRECAUTIONS IN PLACE WITH BED IN LOWEST POSITION, CALL LIGHT WITHIN REACH, BREAKS ON. PATIENT KEPT CLEAN AND DRY THROUGHOUT THE NIGHT, ALL NEEDS ATTENDED TO. WILL ENDORSE TO ONCOMING SHIFT ABOUT ROSIE.
--- NOTE | 2019-10-22 07:40 | NUR ---
RN OPENING NOTES: PATIENT RECEIVED RESTING IN BED A/O X1 KENYAN SPEAKING AND CONFUSED. STABLE ON RA WITH BREATHING EVEN AND UNLABORED, NO SOB NOTED. NO SIGNS OF ACUTE DISTRESS, DENIES PAIN. PICCLINE LOCATED ON [facility]. SAFETY PRECAUTIONS IN PLACE BED IN LOCKED AND LOW POSITION WITH 2 SIDE RAILS UP FOR SAFETY. CALL LIGHT WITHIN REACH. WILL CONTINUE TO MONITOR.
[2019-10-22 08:18] VITALS: BP 113/59
[2019-10-22] MEDS: ASCORBIC ACID 500 MG TABLET PO SCH (08:53)
[2019-10-22] MEDS: ASPIRIN 81 MG TAB.CHEW PO SCH (08:53)
[2019-10-22] MEDS: SEVELAMER CARBONATE 800 MG TABLET PO SCH ×3 (08:53→17:24)
[2019-10-22] MEDS: ESCITALOPRAM OXALATE (10 MG) 10 MG TABLET PO SCH (08:53)
[2019-10-22] MEDS: VIT B CMPLX 3/FA/VIT C/BIOTIN 1 TAB TABLET PO SCH (08:53)
[2019-10-22] MEDS: DOCUSATE SODIUM 100 MG CAPSULE PO SCH ×2 (08:53→17:24)
[2019-10-22] MEDS: LACTOBACILLUS RHAMNOSUS GG 1 EACH CAP.SPRINK PO SCH ×3 (08:54→17:25)
[2019-10-22] MEDS: SILVER SULFADIAZINE CREAM 25 GM TUBE TP SCH (09:00)
[2019-10-22] MEDS: PROSOURCE / PROSTAT (PYXIS) 30 ML UDC PO SCH ×2 (09:43→17:25)
--- NOTE | 2019-10-22 12:16 | NUR ---
rn note: unable to scan ointment. not at bedside
[2019-10-22] MEDS: MUPIROCIN OINT 2% 22 GM TUBE SCH ×2 (12:30→20:35)
--- NOTE | 2019-10-22 13:08 | NUR ---
patient only able to take 800mg out of 2400mg of Renvela. refused the rest of the dose.
[2019-10-22 16:00] VITALS: BP 122/64
--- NOTE | 2019-10-22 18:27 | NUR ---
RN CLOSING NOTE: PATIENT SLEEPING INTERMITTENTLY IN BED A/O X1 MALAWIAN SPEAKING AND CONFUSED. STABLE ON RA WITH BREATHING EVEN AND UNLABORED, NO SOB NOTED. NO SIGNS OF ACUTE DISTRESS, DENIES PAIN. PICCLINE LOCATED ON [facility]. SAFETY PRECAUTIONS IN PLACE BED IN LOCKED AND LOW POSITION WITH 2 SIDE RAILS UP FOR SAFETY. CALL LIGHT WITHIN REACH. WILL ENDORSE CARE TO LATIN DANCE INSTRUCTOR RN FOR ROSIE.
--- NOTE | 2019-10-22 19:43 | NUR ---
MS/RN OPENING NOTES RECEIVED PATIENT IN BED, AWAKE, CAN OPENS EYES, SKIN WARM TO TOUCH. UNABLE TO FOLLOW DIRECTION REQUIRE EXTENSIVE ASSISTANCE,FOR ALLL ADLS/ PATIENT IS PALAUAN ON ROOM AIR, RESPIRATIONS EVEN AND UNLABORED, INCONTINENTMAND WITH SKIN ISSUE FOR ASPIRATION SAFETY PRECAUTIONS AND CRUSHED ALL MEDS, WILL MONITOR ANY CHANGES,
[2019-10-22 20:00] VITALS: BP 112/51
--- NOTE | 2019-10-22 21:00 | NUR ---
MS/RN NOTES PATIENT PROVIDED COOLING MEASURES, KEPT ROOM COOLER PATIENT SKIN WARM, KEPT COMFORTABLE.
--- NOTE | 2019-10-22 23:13 | NUR ---
MS/RN NOTES PATIENT RESTING AND ASLEEP REFUSES TO HAVE SNACKS OR HAVE COVERAGE PATIENT GALARZA WANT TO SLEEP, MONITORING.
[2019-10-23] MEDS: PIPERACILLIN /TAZOBACTAM 2.25 G in IV D5W 50 ML IV SCH ×2 (05:06→12:52)
[2019-10-23] MEDS: BLOOD SUGAR DIAGNOSTIC 1 EACH STRIP VI SCH ×2 (06:19→12:00)
[2019-10-23 08:00] VITALS: BP 87/56
--- NOTE | 2019-10-23 08:00 | NUR ---
m/s dinker: initial assessment received pt in bed awake, alert to name only. pt remains confused and disoriented to time, place, and situation. reality orientation provided prn. pt still resistive and combative with care. no s/s of discomfort. will continue to monitor.
--- NOTE | 2019-10-23 09:00 | NUR ---
m/s disease case manager rn: notes hd started by gayathri (rn) at this time. pharmacist (monique) notified and made aware of vanco trough=20 and okay to give per pharmacist and no random level needed as stated.
[2019-10-23] MEDS: ESCITALOPRAM OXALATE (10 MG) 10 MG TABLET PO SCH (09:01)
[2019-10-23] MEDS: VIT B CMPLX 3/FA/VIT C/BIOTIN 1 TAB TABLET PO SCH (09:01)
[2019-10-23] MEDS: ASCORBIC ACID 500 MG TABLET PO SCH (09:01)
[2019-10-23] MEDS: DOCUSATE SODIUM 100 MG CAPSULE PO SCH (09:01)
[2019-10-23] MEDS: ASPIRIN 81 MG TAB.CHEW PO SCH (09:01)
[2019-10-23] MEDS: SEVELAMER CARBONATE 800 MG TABLET PO SCH ×2 (09:01→12:45)
[2019-10-23] MEDS: LACTOBACILLUS RHAMNOSUS GG 1 EACH CAP.SPRINK PO SCH ×2 (09:01→12:45)
--- NOTE | 2019-10-23 10:00 | NUR ---
m/s vibratory pile driver: md visit seen by dr. zavala. pt for discharge planning back to snf today per cn.
[2019-10-23 10:50] VITALS: BP 85/32
--- NOTE | 2019-10-23 10:50 | NUR ---
m/s muffler installer: notes hd completed with no uf per gayathri. b/p 85/32 per gayathri.
[2019-10-23] MEDS: VANCOMYCIN 500 MG in IV D5W 100 ML IV PRN (10:53)
--- NOTE | 2019-10-23 11:00 | NUR ---
MS/RN NOTE PER PHARMACY OK TO ADMINISTER VANCO DESPITE VANCO LEVEL OF 20.
[2019-10-23] MEDS: PROSOURCE / PROSTAT (PYXIS) 30 ML UDC PO SCH (11:03)
[2019-10-23] MEDS: SILVER SULFADIAZINE CREAM 25 GM TUBE TP SCH (11:03)
[2019-10-23] MEDS: MUPIROCIN OINT 2% 22 GM TUBE SCH (11:04)
[2019-10-23 11:10] VITALS: BP 100/46
--- NOTE | 2019-10-23 11:10 | NUR ---
m/s ecommerce project manager: notes re check b/p 100/46 after hd tx. pt for d'c planning back to snf. will continue to monitor.
--- NOTE | 2019-10-23 13:45 | NUR ---
m/s pointer machine operator: notes florian (plastic surgeon) here and informed her that pt is for discharge back to snf and informed her of pt's skin condition and will f/u with him at snf and will change his wound treatment order as stated.
--- NOTE | 2019-10-23 14:15 | NUR ---
m/s plant operations worker: notes received order to discharge pt back to snf by dr. zavala. order acknowledged. case management making arrangement.
--- NOTE | 2019-10-23 14:50 | NUR ---
m/s knock out hand: [facility] and made aware of discharge back to sn[facility] this evening, spoke to her over the phone and answered all concerns and questions.
--- NOTE | 2019-10-23 15:10 | NUR ---
m/s correctional case manager: notes report given to karmen (rn) at [facility] for continuity of care.
--- NOTE | 2019-10-23 16:15 | NUR ---
M/S RAIL WALKER: NOTES AMBULANCE HERE AND REPORT GIVEN TO ONE OF THE CREW.
--- NOTE | 2019-10-23 16:31 | NUR ---
M/S TRANSLATOR: DISCHARGED DISCHARGE BACK TO SNF IN STABLE CONDITION VIA GURNEY ACCOMPANIED BY 2 CREW.
== END 2019-10-23 16:30 | DRG 853 ==
LOC: ER 11:02 → TELE 13:23 → MED 10-17 17:24
PROVIDERS: ADMIT Internal Medicine; ATTEND Internal Medicine
PROC: 5A1D70Z Performance of Urinary Filtration, Intermittent, Less than 6 Hours Per Day (ICD-10-PCS; 2019-10-17)
PROC: 0JBR0ZZ Excision of Left Foot Subcutaneous Tissue and Fascia, Open Approach (ICD-10-PCS; principal; 2019-10-18)
DX: A41.9 Sepsis, unspecified organism (principal); N18.6 End stage renal disease; G92 Toxic encephalopathy; J15.6 Pneumonia due to other Gram-negative bacteria; R65.21 Severe sepsis with septic shock; I12.0 Hypertensive chronic kidney disease with stage 5 chronic kidney disease or end stage renal disease; N39.0 Urinary tract infection, site not specified; L97.429 Non-pressure chronic ulcer of left heel and midfoot with unspecified severity; E44.0 Moderate protein-calorie malnutrition; N25.81 Secondary hyperparathyroidism of renal origin; E87.2 Acidosis; E11.22 Type 2 diabetes mellitus with diabetic chronic kidney disease; E11.65 Type 2 diabetes mellitus with hyperglycemia; E11.621 Type 2 diabetes mellitus with foot ulcer; Z98.890 Other specified postprocedural states; Z79.51 Long term (current) use of inhaled steroids; Z79.4 Long term (current) use of insulin; Z79.84 Long term (current) use of oral hypoglycemic drugs; Z79.82 Long term (current) use of aspirin; Z79.899 Other long term (current) drug therapy; N40.0 Benign prostatic hyperplasia without lower urinary tract symptoms; E78.5 Hyperlipidemia, unspecified; E83.39 Other disorders of phosphorus metabolism; Z99.2 Dependence on renal dialysis; Z86.73 Personal history of transient ischemic attack (TIA), and cerebral infarction without residual deficits; F03.90 Unspecified dementia, unspecified severity, without behavioral disturbance, psychotic disturbance, mood disturbance, and anxiety; D63.8 Anemia in other chronic diseases classified elsewhere; G89.4 Chronic pain syndrome; Z90.49 Acquired absence of other specified parts of digestive tract; L98.9 Disorder of the skin and subcutaneous tissue, unspecified
CPT/HCPCS: 36415; 71045-TC; 80048-TC; 80076-TC; 80202-TC; 81000-TC; 82272-TC; 82962-TC; 83605-TC; 83735-TC; 84100-TC; 84484-TC; 85025-TC; 86704; 86705; 86706; 87040-TC; 87081-TC; 87086-TC; 87340; 90935-TC; A6253; A6403; G0378; J1815; J2543; J3370; J7050; J7060